=== PATIENT | male | born 1970 | race Caucasian/White ===

== ENCOUNTER 2018-04-06 12:15 | Inpatient (IN) | payer BC ==
[2018-04-06] MEDS ORDERED: ASPIRIN 81 MG PO STA (12:25)
[2018-04-06] MEDS ORDERED: SODIUM CHLORIDE 0.9% 500 ML IV STA (12:25)
[2018-04-06] MEDS ORDERED: NITROGLYCERIN OINT 1 INCH/GM PACKET TOPICAL STA (12:25)
--- NOTE | 2018-04-06 12:29 | ED ---
General Adult HPI - General Chief complaint: Chest Pain Stated complaint: chest pain Time Seen by Provider: 04/06/18 12:15 Source: patient, RN notes reviewed Mode of arrival: wheelchair Limitations: no limitations - History of Present Illness Initial comments: This is a 48-year-old male who has a past medical history significant for smoking and has a strong family history of heart disease. Patient comes in today because he's been having intermittent left-sided chest pain that takes his breath away and has been radiating down his left arm. Patient states he's been having symptoms for a few weeks but today he has had them more and more and it was much more significant and he was short of breath again and was radiating into his left arm. Patient states he also is a little bit sweaty. Patient denies any nausea with the symptoms. Patient denies any abdominal pain patient denies nausea vomiting diarrhea. Patient denies any headache patient denies numbness weakness. Patient denies any lightheadedness or dizziness. Patient denies any recent fever chills or cough. Patient denies any calf pain or leg swelling. - Related Data Home Medications Medication Instructions Recorded Confirmed No Known Home Medications 04/06/18 04/06/18 Allergies Allergy/AdvReac Type Severity Reaction Status Date / Time Penicillins Allergy Anaphylaxis Verified 04/06/18 13:03 Review of Systems ROS Statement: Those systems with pertinent positive or pertinent negative responses have been documented in the HPI. ROS Other: All systems not noted in ROS Statement are negative. Past Medical History Past Medical History: No Reported History History of Any Multi-Drug Resistant Organisms: None Reported Past Surgical History: Orthopedic Surgery Additional Past Surgical History / Comment(s): knee surgery Past Psychological History: No Psychological Hx Reported Smoking Status: Current every day smoker Past Alcohol Use History: None Reported Past Drug Use History: None Reported General Exam - General Exam Comments Initial Comments: GENERAL: Patient is well-developed and well-nourished. Patient is nontoxic and well- hydrated and is in mild distress. ENT: Neck is soft and supple. No significant lymphadenopathy is noted. Oropharynx is clear. Moist mucous membranes. Neck has full range of motion without eliciting any pain. EYES: The sclera were anicteric and conjunctiva were pink and moist. Extraocular movements were intact and pupils were equal round and reactive to light. Eyelids were unremarkable. PULMONARY: Unlabored respirations. Good breath sounds bilaterally. No audible rales rhonchi or wheezing was noted. CARDIOVASCULAR: There is a regular rate and rhythm without any murmurs gallops or rubs. ABDOMEN: Soft and nontender with normal bowel sounds. SKIN: Skin is clear with no lesions or rashes and otherwise unremarkable. NEUROLOGIC: Patient is alert and oriented x3. Cranial nerves II through XII are grossly intact. Motor and sensory are also intact. Normal speech, volume and content. Symmetrical smile. MUSCULOSKELETAL: Normal extremities with adequate strength and full range of motion. LYMPHATICS: No significant lymphadenopathy is noted PSYCHIATRIC: Normal psychiatric evaluation. Limitations: no limitations Course Vital Signs 04/06/18 04/06/18 12:19 13:40 Temperature 98.4 F Pulse Rate 62 56 L Respiratory 16 18 Rate Blood Pressure 143/82 124/76 O2 Sat by Pulse 98 98 Oximetry Medical Decision Making - Medical Decision Making EKG shows normal sinus rhythm at 64 bpm [place] interval is 134 QRS 94 Q-T intervals 392 QTC is 44. Patient's EKG shows no ST segment elevation or depression or T wave abnormalities are noted. Chest x-ray shows no acute abnormality. Patient had Nitropaste placed he is no longer had any chest pain. Because of the patient's changing chest pain and increasing frequency I put the patient on heparin labeled him as an unstable angina admitted the patient. I spoke with Dr. Mccarthy she agreed to admit the patient admitted the patient I continued heparin nitro and aspirin on the floor. I consult cardiology. - Lab Data Result diagrams: 04/06/18 12:43 04/06/18 12:43 Lab Results 04/06/18 04/06/18 04/06/18 Range/Units 12:43 12:43 12:43 WBC 7.9 (3.8-10.6) k/uL RBC 4.62 (4.30-5.90) m/uL Hgb 14.1 (13.0-17.5) gm/dL Hct 42.7 (39.0-53.0) % MCV 92.5 (80.0-100.0) fL MCH 30.5 (25.0-35.0) pg MCHC 33.0 (31.0-37.0) g/dL RDW 12.9 (11.5-15.5) % Plt Count 359 (150-450) k/uL Neutrophils % 60 % Lymphocytes % 30 % Monocytes % 6 % Eosinophils % 3 % Basophils % 0 % Neutrophils # 4.8 (1.3-7.7) k/uL Lymphocytes # 2.4 (1.0-4.8) k/uL Monocytes # 0.5 (0-1.0) k/uL Eosinophils # 0.2 (0-0.7) k/uL Basophils # 0.0 (0-0.2) k/uL PT (9.0-12.0) sec INR (<1.2) APTT (22.0-30.0) sec Sodium 141 (137-145) mmol/L Potassium 4.3 (3.5-5.1) mmol/L Chloride 108 H (98-107) mmol/L Carbon Dioxide 26 (22-30) mmol/L Anion Gap 7 mmol/L BUN 14 (9-20) mg/dL Creatinine 0.94 (0.66-1.25) mg/dL Est GFR (CKD-EPI)AfAm >90 (>60 ml/min/1.73 sqM) Est GFR (CKD-EPI)NonAf >90 (>60 ml/min/1.73 sqM) Glucose 91 (74-99) mg/dL Calcium 9.6 (8.4-10.2) mg/dL Magnesium 1.9 (1.6-2.3) mg/dL Total Bilirubin 1.3 (0.2-1.3) mg/dL AST 45 (17-59) U/L ALT 27 (21-72) U/L Alkaline Phosphatase 48 (38-126) U/L Total Creatine Kinase 153 (55-170) U/L CK-MB (CK-2) 0.8 (0.0-2.4) ng/mL CK-MB (CK-2) Rel Index 0.5 Troponin I <0.012 (0.000-0.034) ng/mL Total Protein 6.8 (6.3-8.2) g/dL Albumin 4.2 (3.5-5.0) g/dL 04/06/18 Range/Units 12:43 WBC (3.8-10.6) k/uL RBC (4.30-5.90) m/uL Hgb (13.0-17.5) gm/dL Hct (39.0-53.0) % MCV (80.0-100.0) fL MCH (25.0-35.0) pg MCHC (31.0-37.0) g/dL RDW (11.5-15.5) % Plt Count (150-450) k/uL Neutrophils % % Lymphocytes % % Monocytes % % Eosinophils % % Basophils % % Neutrophils # (1.3-7.7) k/uL Lymphocytes # (1.0-4.8) k/uL Monocytes # (0-1.0) k/uL Eosinophils # (0-0.7) k/uL Basophils # (0-0.2) k/uL PT 10.5 (9.0-12.0) sec INR 1.1 (<1.2) APTT 26.7 (22.0-30.0) sec Sodium (137-145) mmol/L Potassium (3.5-5.1) mmol/L Chloride (98-107) mmol/L Carbon Dioxide (22-30) mmol/L Anion Gap mmol/L BUN (9-20) mg/dL Creatinine (0.66-1.25) mg/dL Est GFR (CKD-EPI)AfAm (>60 ml/min/1.73 sqM) Est GFR (CKD-EPI)NonAf (>60 ml/min/1.73 sqM) Glucose (74-99) mg/dL Calcium (8.4-10.2) mg/dL Magnesium (1.6-2.3) mg/dL Total Bilirubin (0.2-1.3) mg/dL AST (17-59) U/L ALT (21-72) U/L Alkaline Phosphatase (38-126) U/L Total Creatine Kinase (55-170) U/L CK-MB (CK-2) (0.0-2.4) ng/mL CK-MB (CK-2) Rel Index Troponin I (0.000-0.034) ng/mL Total Protein (6.3-8.2) g/dL Albumin (3.5-5.0) g/dL Critical Care Time Critical Care Time: Yes Total Critical Care Time: 35 Disposition Clinical Impression: Unstable angina pectoris Disposition: ADMITTED IP TO THIS [facility] Referrals: None,Stated [Primary Care Provider] - 1-2 days Time of Disposition: 13:44
[2018-04-06 12:56] LABS: Basophils % (A) 0 %; Eosinophils # (A) 0.2 k/uL (0-0.7); Eosinophils % (A) 3 %; HCT 42.7 % (39.0-53.0); HGB 14.1 gm/dL (13.0-17.5); Lymphocytes # (A) 2.4 k/uL (1.0-4.8); Lymphocytes % (A) 30 %; MCH 30.5 pg (25.0-35.0); MCV 92.5 fL (80.0-100.0); Mean Platelet Volume 6.9; Monocytes # (A) 0.5 k/uL (0-1.0); Monocytes % (A) 6 %; Neutrophils # (A) 4.8 k/uL (1.3-7.7); Neutrophils % (A) 60 %; Platelet Count 359 k/uL (150-450); RBC 4.62 m/uL (4.30-5.90); RDW 12.9 % (11.5-15.5); WBC 7.9 k/uL (3.8-10.6)
[2018-04-06 13:04] LABS: ALT 27 U/L (21-72); AST 45 U/L (17-59); Albumin 4.2 g/dL (3.5-5.0); Alkaline Phosphatase 48 U/L (38-126); Anion Gap 7 mmol/L; Blood Urea Nitrogen 14 mg/dL (9-20); Calcium 9.6 mg/dL (8.4-10.2); Carbon Dioxide 26 mmol/L (22-30); Chloride 108 mmol/L (98-107); Glucose 91 mg/dL (74-99); INR 1.1 (<1.2); Magnesium 1.9 mg/dL (1.6-2.3); Partial Thromboplastin Time 26.7 sec (22.0-30.0); Potassium 4.3 mmol/L (3.5-5.1); Prothrombin Time 10.5 sec (9.0-12.0); Sodium 141 mmol/L (137-145); Total Bilirubin 1.3 mg/dL (0.2-1.3); Total Protein 6.8 g/dL (6.3-8.2)
--- NOTE | 2018-04-06 13:08 | XR ---
EXAMINATION TYPE: XR chest 2V DATE OF EXAM: 04/06/2018 HISTORY: Chest Pain. REFERENCE: NONE. FINDINGS: The lungs are clear. Pleural spaces are clear. The heart is not enlarged. IMPRESSION: NORMAL CHEST.
[2018-04-06 13:15] LABS: Creatine Kinase 153 U/L (55-170)
[2018-04-06 13:28] LABS: Creatine Kinase MB 0.8 ng/mL (0.0-2.4); Troponin I <0.012 ng/mL (0.000-0.034)
[2018-04-06] MEDS ORDERED: HEPARIN SODIUM,PORCINE 5,000 UNIT/ML 1 ML VIAL IV ONE (13:28)
[2018-04-06] MEDS ORDERED: HEPARIN SOD,PORK IN 0.45% NACL 25,000 UNIT in 0.45% NACL 1 500ML.BAG IV SCH (13:30)
[2018-04-06] MEDS ORDERED: NITROGLYCERIN SL TABS 0.4 MG TAB SUBLINGUAL PRN (13:46)
[2018-04-06] MEDS ORDERED: ONDANSETRON 4 MG/2 ML VIAL IVP PRN (15:58)
[2018-04-06] MEDS ORDERED: HYDROcodone/APAP 5-325MG 1 EACH TAB PO PRN (15:58)
--- NOTE | 2018-04-06 15:58 | P.HPIM ---
History of Present Illness H&P Date: 04/06/18 Chief Complaint: chest pain Patient is a 48-year-old male with no significant past medical history other than tobacco abuse who presented initially to the walk-in clinic with complaints of chest pain. He was sent over to the ER for further evaluation. In the ER he underwent an extensive evaluation. His initial vital signs were within normal limits. Initial laboratory analysis was unremarkable. Troponin was negative. EKG did not show any ST-T wave changes. Chest x-ray was negative. He received a nitro patch with improvement in his chest pain. He was admitted to observation for further monitoring. He was also started on a heparin drip. Patient seen and examined at bedside in the observation unit. He states that for the last several weeks he has been walking with his granddaughter. During these walks he's developed chest pain and shortness of breath along with diaphoresis. It was typically lasting about 15-20 minutes and then he would cut recover after relaxing. Last night the chest pain awoke him at 4 AM and was more significant than it had been in the past and lasted longer. He was finally able to fall back asleep. He woke at 10 AM this morning in severe left- sided chest pain with shortness of breath. At that point in time his left arm was numb, he was diaphoretic, he felt lightheaded, and he was having palpitations. He was not nauseous. This episode lasted until he received nitro in the emergency department. He has no PCP, he has never had a stress test, and he has never had a reason to see a scanning manager. He does not take any medications on a daily basis. He denies any recent cough, cold, fever, flu, nausea, vomiting, or constipation. He frequently has multiple bowel movements daily but this is unchanged over the last several years. He does smoke approximately one pack daily. His dad had open heart surgery with a triple or quadruple bypass at age 52. Currently his chest pain is much better. 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 Review of Systems Pertinent positives and negatives as discussed in HPI, a complete review of systems was performed and all other systems are negative. Past Medical History Past Medical History: No Reported History History of Any Multi-Drug Resistant Organisms: None Reported Past Surgical History: Orthopedic Surgery Additional Past Surgical History / Comment(s): left knee surgery, cyst removed on right wrist Past Psychological History: No Psychological Hx Reported Smoking Status: Current every day smoker Past Alcohol Use History: None Reported Past Drug Use History: None Reported Additional History: Smokes one pack per day, no history of cocaine or methamphetamines. Works as a [employer] company driver. Lives with his . No assistive devices. - Past Family History Father Family Medical History: Diabetes Mellitus Additional Family Medical History / Comment(s): CABG at age of 52 Mother Additional Family Medical History / Comment(s): from Cerebral aneurysm Brother(s) Family Medical History: Diabetes Mellitus Medications and Allergies Home Medications Medication Instructions Recorded Confirmed Type No Known Home Medications 04/06/18 04/06/18 History Allergies Allergy/AdvReac Type Severity Reaction Status Date / Time Penicillins Allergy Anaphylaxis Verified 04/06/18 13:03 Physical Exam Osteopathic Statement: *. No significant issues noted on an osteopathic structural exam other than those noted in the History and Physical/Consult. Vitals: Vital Signs Temp Pulse Pulse Resp BP BP Pulse Ox 04/06/18 15:27 66 18 04/06/18 14:13 98.2 F 66 18 138/76 98 04/06/18 13:58 98.0 F 65 18 124/76 99 04/06/18 13:40 56 L 18 124/76 98 04/06/18 12:19 98.4 F 62 16 143/82 98 Intake and Output 04/06/18 04/06/18 04/06/18 06:59 14:59 22:59 Other: Voiding Method Toilet Weight 81.5 kg General: non toxic, no distress, appears at stated age, normal weight Derm: no unusual rashes/lesions no unusual ecchymoses, warm, dry Head: atraumatic, normocephalic, symmetric Eyes: EOMI, no lid lag, anicteric sclera, pupils equal round reactive to light ENT: Nose and ears atraumatic, no thrush, no pharyngeal erythema Neck: No thyromegaly, no cervical lymphadenopathy, trachea midline, supple Mouth: no lip lesion, mucus membranes moist Cardiovascular: S1S2 reg, no murmur, positive posterior tibial pulse bilateral, no edema, capillary refill less than 2 seconds, tenderness to palpation over left chest wall. Lungs: CTA bilateral, no rhonchi, no rales , no accessory muscle use Abdominal: soft, nontender to palpation, no guarding, no appreciable organomegaly, normal bowel sounds Ext: no gross muscle atrophy, muscle strength 5 out of 5 in all 4 extremities grossly, no contractures, chest pain with abduction of the arm to 90 with elbow flexed and internal/external rotation of the arm, chest pain and tingling radiating down arm with abduction Neuro: CN II-XI grossly intact, light touch intact all 4 extremities, finger to nose within normal limits, Psych: Alert, oriented, appropriate affect Results CBC & Chem 7: 04/06/18 12:43 04/06/18 12:43 Labs: Abnormal Lab Results - Last 24 Hours (Table) 04/06/18 Range/Units 12:43 Chloride 108 H (98-107) mmol/L Comments: EKG is reviewed by myself reveals normal sinus rhythm at a rate of 64, normal axis, normal intervals with a VT of 134, QRS 94, and QT of 204. No significant ST-T wave changes. Chest x-ray: report reviewed Thrombosis Risk Factor Assmnt - DVT/VTE Prophylaxis DVT/VTE Prophylaxis: Pharmacologic Prophylaxis ordered - Choose All That Apply Any of the Below Risk Factors Present?: Yes Each Factor Represents 1 point: Age 41-60 years, Obesity (BMI >25) Other Risk Factors: No Thrombosis Risk Factor Assessment Total Risk Factor Score: 2 Thrombosis Risk Factor Assessment Level: Low Risk Assessment and Plan Assessment: Unstable angina, currently chest pain-free -Continue with Nitropaste and heparin drip -Serial troponins -Telemetry -Cardiology consult -Nothing by mouth after midnight with anticipation of cardiac cath or stress test in a.m. -Echo -Lipid profile in a.m. -Aspirin and statin Left shoulder dysfunction -Concern for rotator cuff injury -We will follow with nurse practitioner he saw previously on discharge for further evaluation Tobacco abuse -Cessation -We will avoid nicotine replacement at this point in time with unstable angina Family hx of diabetes - check A1C The patient is placed in observation with an anticipated less than 2 per night stay for evaluation of chest pain/unstable angina. Surrogate decision-maker: CODE STATUS: Full DVT prophylaxis: On heparin drip Discussed with: Patient, family, nursing, ED physician Anticipated discharge date: 24-[address]: Home A total of 55 minutes was spent on the care of this complex patient more than 50 % of the time was spent in counseling and care coordination.
[2018-04-06] MEDS: NITROGLYCERIN OINT 1 INCH/GM PACKET TOPICAL SCH (18:05)
[2018-04-06 19:49] LABS: Creatine Kinase 122 U/L (55-170)
[2018-04-06 20:02] LABS: Creatine Kinase MB 0.6 ng/mL (0.0-2.4); Troponin I <0.012 ng/mL (0.000-0.034)
[2018-04-06] MEDS: ATORVASTATIN 40 MG TAB PO SCH (20:36)
[2018-04-06 23:52] LABS: Cholesterol 202 mg/dL (<200); HDL Cholesterol 23 mg/dL (40-60); LDL Cholesterol,Calculated 156 mg/dL (0-99); Triglycerides 114 mg/dL (<150)
[2018-04-07] MEDS: NITROGLYCERIN OINT 1 INCH/GM PACKET TOPICAL SCH ×4 (00:07→20:18)
[2018-04-07 01:37] LABS: Creatine Kinase 103 U/L (55-170)
[2018-04-07 01:52] LABS: Creatine Kinase MB 0.6 ng/mL (0.0-2.4); Troponin I <0.012 ng/mL (0.000-0.034)
--- NOTE | 2018-04-07 07:38 | P.CRDCN ---
History of Present Illness Consult date: 04/07/18 Chief complaint: Chest discomfort History of present illness: This is a pleasant 48-year-old gentleman with history of smoking presented to the hospital complaining of chest discomfort. He was in his usual state of health about 4 weeks ago when he started experiencing intermittent episodes of chest discomfort, as a sharp kind of discomfort, in the mid of the chest, with some radiation to the left arm described as numbness in the left arm. It was associated with sweating. No shortness of breath. No dizziness or lightheadedness. No nausea or vomiting. No syncope. The patient states clearly that the discomfort is mostly during the night when he is sleeping and at one time about 4 weeks ago happened when he was walking with his granddaughter. The patient does not have any history of coronary artery disease but his cholesterol panel showed elevated LDL in the hospital. He was started on Lipitor at 40 mg by mouth daily. No major cardiac vascular surgery. The patient does smoke about one pack every day. No family history of premature CAD. The EKG showed sinus rhythm without any significant ST or T-wave abnormalities. The cardiac enzymes were checked and came in to be unremarkable. I am going to obtain an exercise treadmill stress test and follow-up with the patient. Also I will obtain an echocardiogram was Doppler. Past Medical History Past Medical History: No Reported History History of Any Multi-Drug Resistant Organisms: None Reported Past Surgical History: Orthopedic Surgery Additional Past Surgical History / Comment(s): left knee surgery, cyst removed on right wrist Past Psychological History: No Psychological Hx Reported Smoking Status: Current every day smoker Past Alcohol Use History: None Reported Past Drug Use History: None Reported - Past Family History Father Family Medical History: Diabetes Mellitus Additional Family Medical History / Comment(s): CABG at age of 52 Mother Additional Family Medical History / Comment(s): from Cerebral aneurysm Brother(s) Family Medical History: Diabetes Mellitus Medications and Allergies Home Medications Medication Instructions Recorded Confirmed Type No Known Home Medications 04/06/18 04/06/18 History Allergies Allergy/AdvReac Type Severity Reaction Status Date / Time Penicillins Allergy Anaphylaxis Verified 04/06/18 13:03 Physical Exam Vitals: Vital Signs Temp Pulse Pulse Resp BP BP Pulse Ox 04/07/18 04:10 98.1 F 66 16 101/63 98 04/07/18 04:00 16 04/07/18 00:00 18 04/06/18 23:28 98.3 F 59 L 18 120/73 96 04/06/18 20:00 18 04/06/18 18:58 98.3 F 55 L 18 117/70 96 04/06/18 16:00 98.4 F 63 16 119/72 98 04/06/18 15:27 66 18 04/06/18 14:13 98.2 F 66 18 138/76 98 04/06/18 13:58 98.0 F 65 18 124/76 99 04/06/18 13:40 56 L 18 124/76 98 04/06/18 12:19 98.4 F 62 16 143/82 98 Intake and Output 04/06/18 04/07/18 04/07/18 22:59 06:59 14:59 Intake Total 159.659 156.987 Balance 159.659 156.987 Intake: Intake, IV Titration 159.659 156.987 Amount Heparin Sod,Pork in 0.45% 159.659 156.987 NaCl 25,000 unit In 0.45 % NaCl 1 500ml.bag @ 12 UNITS/KG/HR 19.59 mls/hr IV .Q24H [facility] Rx#: [id number] Other: Voiding Method Toilet Toilet # Voids 2 2 - Constitutional General appearance: no acute distress - Respiratory Respiratory: bilateral: CTA - Cardiovascular Rhythm: regular Heart sounds: normal: S1, S2 Abnormal Heart Sounds: systolic murmur Results 04/06/18 12:43 04/06/18 12:43 Cardiac Enzymes 04/06/18 04/06/18 04/06/18 Range/Units 12:43 12:43 19:12 AST 45 (17-59) U/L CK-MB (CK-2) 0.8 0.6 (0.0-2.4) ng/mL Troponin I <0.012 <0.012 (0.000-0.034) ng/mL 04/07/18 Range/Units 00:43 AST (17-59) U/L CK-MB (CK-2) 0.6 (0.0-2.4) ng/mL Troponin I <0.012 (0.000-0.034) ng/mL Coagulation 04/06/18 04/06/1818 Range/Units 12:43 19:12 00:40 PT 10.5 (9.0-12.0) sec APTT 26.7 45.1 H 40.1 H (22.0-30.0) sec Lipids 04/06/18 Range/Units 12:43 Triglycerides 114 (<150) mg/dL Cholesterol 202 H (<200) mg/dL HDL Cholesterol 23 L (40-60) mg/dL CBC 04/06/18 Range/Units 12:43 WBC 7.9 (3.8-10.6) k/uL RBC 4.62 (4.30-5.90) m/uL Hgb 14.1 (13.0-17.5) gm/dL Hct 42.7 (39.0-53.0) % Plt Count 359 (150-450) k/uL Comprehensive Metabolic Panel 04/06/18 Range/Units 12:43 Sodium 141 (137-145) mmol/L Potassium 4.3 (3.5-5.1) mmol/L Chloride 108 H (98-107) mmol/L Carbon Dioxide 26 (22-30) mmol/L BUN 14 (9-20) mg/dL Creatinine 0.94 (0.66-1.25) mg/dL Glucose 91 (74-99) mg/dL Calcium 9.6 (8.4-10.2) mg/dL AST 45 (17-59) U/L ALT 27 (21-72) U/L Alkaline Phosphatase 48 (38-126) U/L Total Protein 6.8 (6.3-8.2) g/dL Albumin 4.2 (3.5-5.0) g/dL Current Medications Generic Name Dose Route Start Last Admin Trade Name Freq PRN Reason Stop Dose Admin Hydrocodone Bitart/Acetaminophen 1 each 04/06/18 15:58 [place] 5-325 PO Q6HR PRN Pain Aspirin 325 mg 04/07/18 09:00 Aspirin PO DAILY DASHAWN Atorvastatin Calcium 40 mg 04/06/18 21:00 04/06/18 20:36 Lipitor PO 40 mg HS DASHAWN Administration Heparin Sodium/Sodium Chloride 500 mls @ 19.59 mls/hr 04/06/18 13:30 04:44 25,000 unit/ Sodium Chloride IV 16.16 units/kg/hr .Q24H DASHAWN 26.4 mls/hr Titration Protocol 12 UNITS/KG/HR Nitroglycerin 1 inch 04/06/18 18:00 04/07/18 05:19 Nitro-Bid Oint TOPICAL Not Given Q6HR [facility] Nitroglycerin 0.4 mg 04/06/18 13:46 Nitrostat SUBLINGUAL Q5M PRN Chest Pain Ondansetron HCl 4 mg 04/06/18 15:58 Zofran IVP Q6H PRN Nausea Intake and Output 04/06/18 04/07/18 04/07/18 22:59 06:59 14:59 Intake Total 159.659 156.987 Balance 159.659 156.987 Intake: Intake, IV Titration 159.659 156.987 Amount Heparin Sod,Pork in 0.45% 159.659 156.987 NaCl 25,000 unit In 0.45 % NaCl 1 500ml.bag @ 12 UNITS/KG/HR 19.59 mls/hr IV .Q24H [facility] Rx#: [id number] Other: Voiding Method Toilet Toilet # Voids 2 2 04/06/18 12:43 04/06/18 12:43 Assessment and Plan Assessment: Assessment #1 atypical chest discomfort #2 dyslipidemia #3 significant history of smoking Plan #1 the patient was ruled out for acute coronary event #2 I will obtain a TXT #3 obtain an echocardiogram was Doppler #4 follow-up with the patient. Thank you for allowing us participate his care
--- NOTE | 2018-04-07 10:39 | ECHOF ---
Referral Reason:cp MEASUREMENTS -------- HEIGHT: 172.7 cm WEIGHT: 81.2 kg BP: RVIDd: 2.3 cm (< 3.3) IVSd: 0.9 cm (0.6 - 1.1) LVIDd: 4.5 cm (3.9 - 5.3) LVPWd: 1.1 cm (0.6 - 1.1) IVSs: 1.3 cm LVIDs: 3.9 cm LVPWs: 1.3 cm LA Diam: 3.0 cm (2.7 - 3.8) LAESV Index (A-L): 25.13 ml/m Ao Diam: 3.2 cm (2.0 - 3.7) AV Cusp: 2.1 cm (1.5 - 2.6) LA Diam: 3.7 cm (2.7 - 3.8) MV EXCURSION: 18.525 mm (> 18.000) MV EF SLOPE: 91 mm/s (70 - 150) EPSS: 0.5 cm MV E Max: 0.83 m/s MV DecT: 184 ms MV A Max: 0.66 m/s MV E/A Ratio: 1.25 RAP: 5.00 mmHg RVSP: 26.47 mmHg FINDINGS -------- Sinus rhythm. This was a technically adequate study. LV size, wall thickness and systolic function are normal, with an EF greater than 55%. The left ang tricular size is normal. The right ventricle is normal in size. The left atrial size is normal. Normal LA size by volume 22+/-6 ml/m2. The right atrial size is normal. There is mild aortic valve sclerosis. There is no evidence of aortic regurgitation. Mild mitral annular calcification present. Mild mitral regurgitation is present. Mild tricuspid regurgitation present. There is no evidence of pulmonary hypertension. The right v entricular systolic pressure, as measured by Doppler, is 26.47mmHg. There is no pulmonic regurgitation present. The aortic root size is normal. There is no pericardial effusion. CONCLUSIONS -------- 1. LV size, wall thickness and systolic function are normal, with an EF greater than 55%. 2. The left ventricular size is normal. 3. The right ventricle is normal in size. 4. The left atrial size is normal. 5. The right atrial size is normal. 6. There is mild aortic valve sclerosis. 7. Mild mitral annular calcification present. 8. Mild mitral regurgitation is present. 9. Mild tricuspid regurgitation present. 10. There is no evidence of pulmonary hypertension. 11. The right ventricular systolic pressure, as measured by Doppler, is 26.47mmHg. 12. There is no pulmonic regurgitation present. 13. The aortic root size is normal. 14. There is no pericardial effusion. REFINING EQUIPMENT OPERATOR: Radha Mabry RDCS
[2018-04-07] MEDS: ASPIRIN 325 MG TAB PO SCH (11:29)
[2018-04-07] MEDS ORDERED: NITROGLYCERIN SL TABS 0.4 MG TAB SUBLINGUAL PRN (12:38)
[2018-04-07] MEDS ORDERED: ASPIRIN 325 MG TAB PO STA (12:38)
[2018-04-07] MEDS ORDERED: ATORVASTATIN 80 MG TAB PO STA (12:38)
[2018-04-07] MEDS ORDERED: ALPRAZolam 0.5 MG TAB PO PRN (12:38)
[2018-04-07] MEDS ORDERED: SODIUM CHLORIDE 0.9% 1,000 ML in EMPTY BAG 1 BAG IV ONE (12:38)
[2018-04-07] MEDS ORDERED: ALPRAZolam 0.25 MG TAB PO PRN (12:38)
--- NOTE | 2018-04-07 13:15 | EST ---
EXERCISE STRESS DATE OF SERVICE: 04/07/2018 AGE: 48 SEX: Male HT: 68" WT: 179 PROTOCOL: Rashel TXT STAGE: III DURATION OF EXERCISE: 7 minutes HEART RATE REST: 67 BLOOD PRESSURE REST: 115/77 MAXIMUM HEART RATE ACHIEVED: 124 MAXIMUM BLOOD PRESSURE: 174/106 85% MPHR: 147 100% MPHR: 173 METS: 9.3 INDICATION: Chest discomfort. CLINICAL INFORMATION: STRESS DATA: Pretesting physical examination showed a heart rate of 67, Pressure is 115/77 mmHg. Baseline EKG showed sinus mechanism. The patient exercised on the treadmill according to Rashel protocol for a total of a total of 7 minutes and achieved 9.3 METs. Max heart rate was 124, which is about 72% of maximum predicted heart rate. Maximum pressure was 174/106 mmHg. Clinically the patient developed discomfort at the heart rate, which was resolved on recovery and with nitroglycerin sublingual. No EKG changes concerning for ischemia. CONCLUSION: 1. Good exercise tolerance. 2. Severe chest discomfort in response to exercise. 3. No EKG changes in response to exercise. 4. Overall abnormal stress test for the patient. I did recommend proceeding with a nuclear stress test or heart catheterization and the patient would like to proceed with a heart catheterization. MMODL / IJN: [id number] /
[2018-04-07 14:12] LABS: Hemoglobin A1C 5.6 % (4.0-6.0)
[2018-04-07] MEDS: ATORVASTATIN 40 MG TAB PO SCH (20:19)
[2018-04-08] MEDS: NITROGLYCERIN OINT 1 INCH/GM PACKET TOPICAL SCH ×5 (00:58→22:40)
[2018-04-08] MEDS ORDERED: IV FLUID CONTINUATION 850 ML IV ONE (08:17)
[2018-04-08] MEDS ORDERED: MIDAZOLAM 2 MG/2 ML VIAL IV ONE ×2 (08:40→09:12)
[2018-04-08] MEDS ORDERED: LIDOCAINE 1% INJ 10MG/ML (20 ML MDV) SQ ONE (08:43)
[2018-04-08] MEDS ORDERED: VERAPAMIL SYRINGE (5 MG/10 ML) INTRAARTER ONE ×2 (08:44→09:30)
[2018-04-08] MEDS ORDERED: HEPARIN SODIUM 1,000 UN/ML (10ML VL) IV ONE ×2 (08:46→09:12)
[2018-04-08] MEDS: fentaNYL (PF) 50 MCG/ML 2 ML AMP IV ONE ×2 (08:50→09:12)
[2018-04-08] MEDS ORDERED: ADENOSINE 90 MG in SODIUM CHLORIDE 0.9% 60 ML IVP ONE (09:20)
[2018-04-08] MEDS ORDERED: IOPAMIDOL-370 100ML BTL INJ ONE (09:28)
[2018-04-08] MEDS ORDERED: IOPAMIDOL-370 125ML BTL INJ ONE (09:28)
[2018-04-08] MEDS ORDERED: SODIUM CHLORIDE 0.9% 1,000 ML IV SCH (09:45)
[2018-04-08] MEDS ORDERED: RX INFO: IV CONTRAST WAS GIVEN 1 EACH MISC MISCELLANE PRN (09:45)
--- NOTE | 2018-04-08 10:22 | CC ---
CARDIAC CATHETERIZATION REPORT DATE OF SERVICE: 04/08/2018 PERFORMING PHYSICIAN: Chuy Sanchez MD, Dairy Farm Worker PROCEDURE PERFORMED: 1. Selective right and left coronary angiogram. 2. Left heart catheterization. 3. Fractional flow reserve FFR of the LAD. INDICATION: This is a pleasant 48-year-old gentleman with history of smoking, who presented to the hospital complaining of chest discomfort and was ruled out for acute coronary event. He underwent an exercise treadmill stress test and that during exercise, he developed chest discomfort concerning for angina. Because of that, heart catheterization was recommended. APPROACH: Right radial artery. COMPLICATION: None. LEVEL OF SEDATION: Moderate sedation for 48 minutes. PROCEDURE DESCRIPTION: After obtaining an informed consent, the patient was brought to the cardiac nitriles lab technician. The right radial artery was cannulated using micropuncture technique, the micropuncture wire passed easily, then I placed a 6-Kyrgyz sheath in the right radial artery. After that, I gave the patient 2 mg of verapamil IA and 8000 units of heparin IV. I did after that selective right and left coronary angiogram using JR4 and JL3.5 catheters. Left heart catheterization was performed using the JR4, which flipped into the LV, then I did pullback across aortic valve. After that, I performed fractional flow reserve FFR of the LAD. Please see a separate paragraph for that. SELECTIVE CORONARY ANGIOGRAM: 1. The right coronary artery is a [id number] caliber vessel and it is a dominant vessel. The proximal RCA appeared to be angiographically normal. The mid RCA has intermediate lesion, appeared to be in the range of 50%. The RCA distally appeared to be angiographically normal and bifurcates into PDA and PLV branches. 2. The left main is angiographically normal. It bifurcates into left circumflex, ramus intermedius, and left anterior descending artery. 3. The left circumflex is a large caliber vessel. It is a nondominant vessel. The left circumflex system is angiographically normal. 4. The ramus intermedius is a moderate caliber vessel and seems to be angiographically normal. 5. The LAD, the ostial LAD appeared to have a lesion, seems to be in the range of 60% to 70%. I did an FFR on the LAD and that came into be ischemic at 0.78. The mid LAD and distal LAD appeared to be angiographically normal. The LAD in the midportion gives rise into 2 diagonal branches. they appear to be angiographically normal. FFR FRACTIONAL FLOW RESERVE OF THE LAD: After zeroing the Doppler wire and equalizing between the Doppler wire and the guiding catheter, we did FFR per IV infusion. FFR came in to be 1.78, which is ischemic. CONCLUSION: 1. Intermediate disease involving the mid right coronary artery. 2. Normal left circumflex coronary artery. 3. Normal ramus intermedius coronary artery. 4. Severe disease involving the ostial left anterior descending artery. 5. After zeroing the Doppler wire and equalizing between the Doppler wire and the guiding catheter, we did FFR per IV infusion. FFR came in to be 1.78, which is ischemic. POSTPROCEDURE MANAGEMENT: Giving the location of the lesion, which is by the ostial LAD with a very small landing zone for stent, I did recommend proceeding with a single-vessel coronary artery bypass grafting with LYN to LAD. I am going to consult surgeon to see the patient. MMODL / IJN: [id number] /
[2018-04-08] MEDS: ASPIRIN 325 MG TAB PO SCH (11:28)
[2018-04-08] MEDS: METOPROLOL TARTRATE 12.5 MG TAB PO SCH ×2 (11:57→20:35)
[2018-04-08 11:58] LABS: HGB 13.2 gm/dL (13.0-17.5); MCH 30.5 pg (25.0-35.0); MCV 92.5 fL (80.0-100.0); Mean Platelet Volume 6.7; Platelet Count 322 k/uL (150-450); RBC 4.33 m/uL (4.30-5.90); RDW 12.8 % (11.5-15.5)
[2018-04-08 12:06] LABS: Anion Gap 7 mmol/L; Blood Urea Nitrogen 11 mg/dL (9-20); Calcium 9.1 mg/dL (8.4-10.2); Carbon Dioxide 26 mmol/L (22-30); Chloride 107 mmol/L (98-107); Glucose 92 mg/dL (74-99); Magnesium 1.9 mg/dL (1.6-2.3); Potassium 4.1 mmol/L (3.5-5.1); Sodium 140 mmol/L (137-145)
--- NOTE | 2018-04-08 13:00 | P.GSCN ---
History of Present Illness Consult date: 04/08/18 Reason for Consult: Coronary artery disease, surgical recommendations. Requesting physician: Chuy Sanchez History of present illness: This a 48-year-old gentleman who does not follow with the primary care physician on a regular basis. He does have a previous medical history of hypertension, hyperlipidemia, current tobacco dependence, occasional marijuana use, and family history of early coronary artery disease with his father having bypass surgery at 52 years old. He is currently on no home medications. He has been having exertional chest pain and shortness of breath for several months. Over the last couple of days he began to have chest pain with radiation to his left arm and shortness of breath with diaphoresis even at rest , including waking him from sleep. He denies any nausea, abdominal pain, vomiting, diarrhea, sick contacts, or recent travel. He presented to [facility] emergency room due to increasing severity of symptoms. Chest x-ray was completed which was negative for any acute process. EKG was performed which did not demonstrate acute ischemia. Troponins were negative. He was admitted for cardiac workup and underwent a stress test. Transthoracic echocardiogram demonstrated normal LV function with an ejection fraction of 55% , mild mitral regurgitation, and mild tricuspid regurgitation. He began to have chest pain during the stress test which was stopped, and he was recommended to have heart catheterization which was completed this morning and which demonstrated proximal LAD stenosis of 70%. FFR was completed with the result of 0.[address] Lindsay from cardiothoracic surgery was consulted for surgical recommendations. Review of Systems Review of systems was completed and was negative except as noted. - Constitutional Reports sweats - Cardiovascular Reports as per HPI, Reports chest pain, Reports decreased exercise tolerance, Reports dyspnea on exertion, Reports shortness of breath Past Medical History Past Medical History: Hyperlipidemia, Hypertension History of Any Multi-Drug Resistant Organisms: None Reported Past Surgical History: Orthopedic Surgery Additional Past Surgical History / Comment(s): left knee surgery, cyst removed on right wrist Past Anesthesia/Blood Transfusion Reactions: No Reported Reaction Past Psychological History: No Psychological Hx Reported Smoking Status: Current every day smoker Past Alcohol Use History: None Reported Past Drug Use History: Marijuana - Past Family History Father Family Medical History: Diabetes Mellitus Additional Family Medical History / Comment(s): CABG at age of 52 Mother Additional Family Medical History / Comment(s): from Cerebral aneurysm Brother(s) Family Medical History: Diabetes Mellitus Medications and Allergies Home Medications Medication Instructions Recorded Confirmed Type No Known Home Medications 04/06/18 04/06/18 History Allergies Allergy/AdvReac Type Severity Reaction Status Date / Time Penicillins Allergy Anaphylaxis Verified 04/06/18 13:03 Surgical - Exam Vital Signs Temp Pulse Resp BP Pulse Ox 98.4 F 62 16 143/82 98 04/06/18 12:19 04/06/18 12:19 04/06/18 12:19 04/06/18 12:19 04/06/18 12:19 - General well developed, well nourished, no distress, no pain - Eyes PERRL, normal ocular movement - ENT no hearing loss, poor longterm - Neck no masses, no bruits, trachea midline - Respiratory Lungs sounds diminished bilaterally. Respirations even, nonlabored. Currently on room air with oxygen saturation 97%. No chest wall deformities. - Cardiovascular S1, S2 present. Regular rate and rhythm, sinus rhythm on telemetry. Palpable peripheral pulses bilaterally. No edema present. No calf pain or tenderness noted. No varicosities noted. - Abdomen Abdomen: soft, non tender, bowel sounds - Genitourinary Deferred - Rectum Deferred - Integumentary no rash, no growths - Neurologic normal coordination, normal sensation - Psychiatric oriented to time, oriented to person, oriented to place, speech is normal, memory intact Results - Labs 04/08/18 11:33 04/08/18 11:33 Diabetes panel 04/06/18 04/08/18 Range/Units 12:43 11:33 Sodium 140 (137-145) mmol/L Potassium 4.1 (3.5-5.1) mmol/L Chloride 107 (98-107) mmol/L Carbon Dioxide 26 (22-30) mmol/L BUN 11 (9-20) mg/dL Creatinine 0.87 (0.66-1.25) mg/dL Glucose 92 (74-99) mg/dL Hemoglobin A1c 5.6 (4.0-6.0) % Calcium 9.1 (8.4-10.2) mg/dL Thyroid panel 04/08/18 Range/Units 11:33 TSH 1.700 (0.465-4.680) mIU/L Calcium panel 04/08/18 Range/Units 11:33 Calcium 9.1 (8.4-10.2) mg/dL Pituitary panel 04/08/18 Range/Units 11:33 Sodium 140 (137-145) mmol/L Potassium 4.1 (3.5-5.1) mmol/L Chloride 107 (98-107) mmol/L Carbon Dioxide 26 (22-30) mmol/L BUN 11 (9-20) mg/dL Creatinine 0.87 (0.66-1.25) mg/dL Glucose 92 (74-99) mg/dL Calcium 9.1 (8.4-10.2) mg/dL TSH 1.700 (0.465-4.680) mIU/L Adrenal panel 04/08/18 Range/Units 11:33 Sodium 140 (137-145) mmol/L Potassium 4.1 (3.5-5.1) mmol/L Chloride 107 (98-107) mmol/L Carbon Dioxide 26 (22-30) mmol/L BUN 11 (9-20) mg/dL Creatinine 0.87 (0.66-1.25) mg/dL Glucose 92 (74-99) mg/dL Calcium 9.1 (8.4-10.2) mg/dL - Imaging Chest x-ray: report reviewed, image reviewed EKG: image reviewed Additional studies: Heart catheterization films reviewed. Assessment and Plan (1) Coronary artery disease Current Visit: Yes Status: Acute Code(s): I25.10 - ATHSCL HEART DISEASE OF [place] CORONARY ARTERY W/O ANG PCTRS SNOMED Code(s): 48226052 (2) Hypertension Current Visit: Yes Status: Chronic Code(s): I10 - ESSENTIAL (PRIMARY) HYPERTENSION SNOMED Code(s): 79175813 (3) Hyperlipidemia Current Visit: Yes Status: Chronic Code(s): E78.5 - HYPERLIPIDEMIA, UNSPECIFIED SNOMED Code(s): 35994969 (4) Tobacco dependence Current Visit: Yes Status: Chronic Code(s): F17.200 - NICOTINE DEPENDENCE, UNSPECIFIED, UNCOMPLICATED SNOMED Code(s): 71266717 (5) Marijuana smoker, episodic Current Visit: Yes Status: Chronic Code(s): F12.90 - CANNABIS USE, UNSPECIFIED, UNCOMPLICATED SNOMED Code(s): 68660342 (6) Family history of early CAD Current Visit: Yes Status: Chronic Code(s): Z82.49 - FAMILY HX OF ISCHEM HEART DIS AND OTH DIS OF THE CIRC SYS SNOMED Code(s): 560350701 (7) Unstable angina pectoris Current Visit: Yes Status: Acute Code(s): I20.0 - UNSTABLE ANGINA SNOMED Code(s): 8972714 Plan: The patient was seen and examined at the bedside with family. Chart/ diagnostics were reviewed including heart catheterization films. The case will be discussed with Dr. Lindsay. The patient would benefit from maximizing medical management with aspirin, statin, beta yanet. Will obtain preoperative testing. Preoperative teaching initiated with patient and family, risks and benefits were reviewed, all questions answered. 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 Patient encouraged to quit smoking. Medical management per primary care service. More recommendations to follow. Thank you Dr. Sanchez for this consult. We look forward to working with you in the care of your patient. Time with Patient: Greater than 30
[2018-04-08 13:06] LABS: Appearance,Urine Clear (Clear); Bilirubin,Urine Negative (Negative); Blood,Urine Negative (Negative); Color,Urine Light Yellow; Glucose,Urine (UA) Negative (Negative); Ketones,Urine Negative (Negative); Leukocyte Esterase,Urine Negative (Negative); Nitrite,Urine Negative (Negative); Protein,Urine Negative (Negative); Specific Gravity,Urine 1.042 (1.001-1.035); Urobilinogen,Urine <2.0 mg/dL (<2.0)
--- NOTE | 2018-04-08 15:59 | US ---
EXAMINATION TYPE: US carotid duplex BILAT DATE OF EXAM: 04/08/2018 COMPARISON: NONE CLINICAL HISTORY: preop open heart. EXAM MEASUREMENTS: RIGHT: Peak Systolic Velocity (PSV) cm/sec ----- Right CCA: 60.7 ----- Right ICA: 69.9 ----- Right ECA: 73.9 ICA/CCA ratio: 1.2 RIGHT: End Diastole cm/sec ----- Right CCA: 12.7 ----- Right ICA: 25.4 ----- Right ECA: 15.4 LEFT: Peak Systolic Velocity (PSV) cm/sec ----- Left CCA: 60.3 ----- Left ICA: 70.2 ----- Left ECA: 45.6 ICA/CCA ratio: 1.2 LEFT: End Diastole cm/sec ----- Left CCA: 18.6 ----- Left ICA: 27.4 ----- Left ECA: 9.3 VERTEBRALS (direction of flow): Right Vertebral: Antegrade Left Vertebral: Antegrade Rhythm: Normal Grayscale images show no significant focal plaque at carotid bulb level bilaterally. IMPRESSION: No significant plaque or hemodynamically significant stenosis seen in either internal ca rotid artery. Criteria for Assigning % of Stenosis / Diameter reduction (Estimation based on the indirect measurements of the internal carotid artery velocities (ICA PSV). 1. Normal (no stenosis)=ICA PSV < 125 cm/s: ratio < 2.0: ICA EDV<40 cm/s. 2. Less than 50% stenosis=ICA PSV < 125 cm/s: ratio < 2.0: ICA EDV<40 cm/s. 3. 50 to 69% stenosis=ICA PSV of 125 to 230 cm/s: ration 2.0 ? 4.0: ICA EDV 40-100 cm/s. 4. Greater than 70% stenosis to near occlusion= ICA PSV > 230 cm/s: ratio > 4.0: ICA EDV > 100 cm/s. 5. Near occlusion= ICA PSV velocities may be low or undetectable: variable ratio and ICA EDV. 6. Total occlusion=unable to detect flow.
[2018-04-08 17:28] LABS: Hepatitis A Antibody IgM Non-Reactive (Non-Reactive)
[2018-04-08 18:06] LABS: Hepatitis B Core IgM Non-Reactive (Non-Reactive)
[2018-04-08] MEDS: ATORVASTATIN 40 MG TAB PO SCH (20:36)
[2018-04-09] MEDS: NITROGLYCERIN OINT 1 INCH/GM PACKET TOPICAL SCH ×4 (06:07→22:25)
[2018-04-09 06:22] LABS: Basophils % (A) 0 %; Eosinophils # (A) 0.2 k/uL (0-0.7); Eosinophils % (A) 3 %; HCT 39.8 % (39.0-53.0); HGB 13.1 gm/dL (13.0-17.5); Lymphocytes # (A) 2.1 k/uL (1.0-4.8); Lymphocytes % (A) 25 %; MCH 30.5 pg (25.0-35.0); MCV 92.5 fL (80.0-100.0); Mean Platelet Volume 7.1; Monocytes # (A) 0.4 k/uL (0-1.0); Monocytes % (A) 5 %; Neutrophils # (A) 5.4 k/uL (1.3-7.7); Neutrophils % (A) 66 %; Platelet Count 332 k/uL (150-450); RDW 12.9 % (11.5-15.5); WBC 8.2 k/uL (3.8-10.6)
[2018-04-09 06:40] LABS: Anion Gap 8 mmol/L; Blood Urea Nitrogen 10 mg/dL (9-20); Calcium 9.3 mg/dL (8.4-10.2); Carbon Dioxide 23 mmol/L (22-30); Chloride 109 mmol/L (98-107); Glucose 105 mg/dL (74-99); Potassium 4.3 mmol/L (3.5-5.1); Sodium 140 mmol/L (137-145)
[2018-04-09] MEDS: METOPROLOL TARTRATE 12.5 MG TAB PO SCH ×2 (08:05→21:02)
[2018-04-09] MEDS: ASPIRIN 325 MG TAB PO SCH (08:05)
[2018-04-09] MEDS ORDERED: ALPRAZolam 0.25 MG TAB PO PRN (08:57)
[2018-04-09] MEDS ORDERED: ATORVASTATIN 80 MG TAB PO STA (08:57)
[2018-04-09] MEDS ORDERED: ALPRAZolam 0.5 MG TAB PO PRN (08:57)
[2018-04-09] MEDS ORDERED: NITROGLYCERIN SL TABS 0.4 MG TAB SUBLINGUAL PRN (08:57)
[2018-04-09] MEDS ORDERED: ASPIRIN 325 MG TAB PO STA (08:57)
[2018-04-09] MEDS ORDERED: SODIUM CHLORIDE 0.9% 1,000 ML in EMPTY BAG 1 BAG IV ONE (08:57)
--- NOTE | 2018-04-09 10:13 | P.PN ---
Subjective No chest pain or shortness of breath overnight. No nausea or vomiting. He was evaluated by cardiology and cardiothoracic surgery. Underwent carotid Doppler didn't show any significant stenosis and echocardiogram showed preserved EF REVIEW OF SYSTEMS: CONSTITUTIONAL: No fever or chills HEENT: No changes in vision or voice CARDIOVASCULAR: no chest pain or abnormal heart beats, or any swelling in ankles or feet. RESPIRATORY: No wheezing or coughing. GASTROINTESTINAL: No abdominal pain, no nausea no vomiting no constipation or diarrhea GENITOURINARY: no any urinary urgency, frequency or burning, and there has been no blood in her urine. no flank pain. MUSCULOSKELETAL: notes full range of motion of all her joints without pain or swelling. NEUROLOGICAL: , no headache. no vision changes, or fainting. No numbness or tingling. Objective - Vital Signs Vital signs: Vital Signs Temp 98.5 F 04/09/18 08:00 Pulse 57 L 04/09/18 08:00 Resp 16 04/09/18 08:00 BP 116/77 04/09/18 08:00 Pulse Ox 97 04/09/18 08:00 Intake & Output 04/08/18 04/09/18 04/09/18 18:59 06:59 18:59 Intake Total 509.53 20 Balance 509.53 20 Weight 83.1 kg Intake: IV 309.53 20 Sodium Chloride 0.9% 1, 100 20 000 ml @ 100 mls/hr IV . Q10H [facility] Rx#:[id number] Oral 200 Other: Voiding Method Toilet Toilet Toilet # Voids 2 - Exam General: No distress. Oriented x 3, normal mood and affect . Ambulating without difficulty. HEENT: Head: Normocephalic, atraumatic, no visible or palpable masses, depressions, or scaring, conjunctiva clear, sclera non-icteric, EOM intact, PERRL Neck: Supple, without lesions, bruits, or adenopathy, thyroid non-enlarged and non-tender Heart: No cardiomegaly or thrills; regular rate and rhythm, no murmur or gallop Lungs: Clear to auscultation and percussion Abdomen: Bowel sounds normal, no tenderness, organomegaly, masses, or hernia Back: Spine normal without deformity or tenderness, no CVA tenderness Extremities: No amputations or deformities, cyanosis, edema or varicosities, peripheral pulses intact Musculoskeletal: No peripheral joint swelling, pain, erythema. No clubbing Skin: Good turgor, no rash, unusual bruising or prominent lesions - Labs CBC & Chem 7: 04/09/18 05:49 04/09/18 05:49 Labs: Abnormal Lab Results - Last 24 Hours (Table) 04/08/18 04/09/18 Range/Units 12:46 05:49 Chloride 109 H (98-107) mmol/L Glucose 105 H (74-99) mg/dL Ur Specific K[place]ter 1.042 H (1.001-1.035) Microbiology - Last 24 Hours (Table) 04/08/18 12:46 Urine Culture - Preliminary Urine,Voided 04/08/18 12:00 Nasal Screen MRSA/MSSA - Preliminary Nasopharyngeal Swab Assessment and Plan Assessment: 1. Coronary artery disease with de jerry angina Lifestyle modifications Aspirin statin beta yanet Smoking cessation Pending further evaluation by CTS and cardiology 2. Left shoulder pain Due to muscle strain Supportive care Tylenol when necessary Time with Patient: Less than 30
[2018-04-09] MEDS ORDERED: IV FLUID CONTINUATION 1,000 ML IV ONE (15:18)
[2018-04-09] MEDS ORDERED: MIDAZOLAM 2 MG/2 ML VIAL IV ONE (15:26)
[2018-04-09] MEDS ORDERED: LIDOCAINE 1% INJ 10MG/ML (20 ML MDV) SQ ONE (15:29)
[2018-04-09] MEDS ORDERED: BIVALIRUDIN 250 MG in SODIUM CHLORIDE 0.9% 50 ML IV ONE (15:34)
[2018-04-09] MEDS ORDERED: BIVALIRUDIN BOLUS 250 MG/50 ML IV ONE (15:34)
[2018-04-09] MEDS ORDERED: TICAGRELOR 90 MG TAB PO ONE (15:47)
[2018-04-09] MEDS ORDERED: IOPAMIDOL-250 100ML BTL INTRAARTER ONE (15:49)
[2018-04-10] MEDS: NITROGLYCERIN OINT 1 INCH/GM PACKET TOPICAL SCH ×3 (05:56→07:44)
[2018-04-10 06:29] LABS: Basophils % (A) 0 %; Eosinophils # (A) 0.2 k/uL (0-0.7); Eosinophils % (A) 2 %; HCT 38.2 % (39.0-53.0); HGB 12.6 gm/dL (13.0-17.5); Lymphocytes # (A) 1.7 k/uL (1.0-4.8); Lymphocytes % (A) 18 %; MCH 30.6 pg (25.0-35.0); MCHC 32.9 g/dL (31.0-37.0); Mean Platelet Volume 6.9; Monocytes # (A) 0.6 k/uL (0-1.0); Monocytes % (A) 6 %; Neutrophils # (A) 6.9 k/uL (1.3-7.7); Neutrophils % (A) 73 %; Platelet Count 304 k/uL (150-450); RBC 4.11 m/uL (4.30-5.90); RDW 13.1 % (11.5-15.5); WBC 9.5 k/uL (3.8-10.6)
[2018-04-10 06:38] LABS: Anion Gap 7 mmol/L; Blood Urea Nitrogen 10 mg/dL (9-20); Calcium 9.2 mg/dL (8.4-10.2); Carbon Dioxide 26 mmol/L (22-30); Chloride 107 mmol/L (98-107); Glucose 90 mg/dL (74-99); Potassium 4.4 mmol/L (3.5-5.1); Sodium 140 mmol/L (137-145)
[2018-04-10] MEDS: METOPROLOL TARTRATE 12.5 MG TAB PO SCH ×2 (07:44→20:28)
[2018-04-10] MEDS: ASPIRIN 325 MG TAB PO SCH (07:45)
--- NOTE | 2018-04-10 08:35 | AN ---
ANGIOGRAPHY REPORT DATE OF SERVICE: March 09, 2018 PERFORMING PHYSICIAN: Chuy Sanchez MD, medical records clerk. PROCEDURE PERFORMED: Successful stenting of the ostial left anterior descending artery using 3.25 x 15 mm Xience LAWSON with good angiographic results and reduction of stenosis from 70% to 0%. INDICATION: This is a pleasant 48-year-old gentleman with history of smoking, who presented to the hospital with chest discomfort and underwent an exercise treadmill stress test and that came in to be abnormal. Subsequently the patient underwent heart catheterization and was found to have intermediate to severe disease involving the ostial LAD. The patient initially was referred for open heart surgery. Subsequently, we decided to pursue with percutaneous coronary intervention. APPROACH: Right common femoral artery. COMPLICATION: None. LEVEL OF SEDATION: Moderate. SEDATION: Conscious sedation was performed with a sedation length of 21 minutes. PROCEDURE DESCRIPTION: After obtaining an informed consent, the patient was brought to the cardiac label stamper. The right common femoral artery was cannulated using micropuncture technique. Micropuncture wire passed easily and then I placed a 6-Kenyan sheath in the right common femoral artery. After that, anticoagulation was initiated using Angiomax. Subsequently I did wire the LAD using a run-through wire. I did direct stenting on the lesion using 3.25 x 15. After that, I did successful stenting of the lesion in the ostial LAD using 3.25 x 15 mm Xience LAWSON where the stent was positioned under fluoroscopy guidance and deployed under its nominal pressure under 12 atmospheres for 20 seconds with the following angiogram showed good angiographic results with reduction of stenosis from 70% to 0%. The procedure was completed without any complication. POSTPROCEDURE MANAGEMENT: 1. Dual anti-platelet therapy. 2. Risk factor modifications. 3. Follow up with the patient. MMODL / IJN: [id number] /
[2018-04-10] MEDS: ISOSORBIDE MONONITRATE ER 30 MG TAB.ER.24H PO SCH (08:46)
--- NOTE | 2018-04-10 12:03 | P.PN ---
Subjective Patient underwent repeat cardiac catheterization yesterday with drug-eluting stent insertion in ostial LAD area. This morning he did have some chest pain and was evaluated by cardiology and Nitropaste was applied with possible second look cardiac catheterization planned no shortness of breath nausea or vomiting REVIEW OF SYSTEMS: CONSTITUTIONAL: No fever or chills HEENT: No changes in vision or voice CARDIOVASCULAR: Per HPI RESPIRATORY: No wheezing or coughing. GASTROINTESTINAL: No abdominal pain, no nausea no vomiting no constipation or diarrhea GENITOURINARY: no any urinary urgency, frequency or burning, and there has been no blood in her urine. no flank pain. MUSCULOSKELETAL: She notes full range of motion of all her joints without pain or swelling. NEUROLOGICAL: , no headache. no vision changes, or fainting. No numbness or tingling. Objective - Vital Signs Vital signs: Vital Signs Temp 97.2 F L 04/10/18 07:47 Pulse 72 04/10/18 07:47 Resp 19 04/10/18 07:47 BP 126/65 04/10/18 07:47 Pulse Ox 96 04/10/18 07:47 Intake & Output 04/09/18 04/10/18 04/10/18 18:59 06:59 18:59 Intake Total 769.47 95 Output Total 1100 Balance 769.47 -1005 Weight 81.5 kg Intake: IV 123.97 95 0.9 20 IV Fluid Continuation 1, 75 000 ml @ 0 mls/hr IV .[facility] -[facility] Rx#:[id number] Intake, IV Titration 415.5 Amount Sodium Chloride 0.9% 1, 415.5 000 ml In Empty Bag 1 bag @ 1 ML/KG/HR 83.1 mls/hr IV .Q12H3M [facility] Rx#: [id number] Oral 230 Output: Urine 1100 Other: Voiding Method Toilet Toilet # Voids 2 - Exam General: No distress. Oriented x 3, normal mood and affect . Ambulating without difficulty. HEENT: Head: Normocephalic, atraumatic, no visible or palpable masses, depressions, or scaring, conjunctiva clear, sclera non-icteric, EOM intact, PERRL Neck: Supple, without lesions, bruits, or adenopathy, thyroid non-enlarged and non-tender Heart: No cardiomegaly or thrills; regular rate and rhythm, no murmur or gallop Lungs: Clear to auscultation and percussion Abdomen: Bowel sounds normal, no tenderness, organomegaly, masses, or hernia Back: Spine normal without deformity or tenderness, no CVA tenderness Extremities: No amputations or deformities, cyanosis, edema or varicosities, peripheral pulses intact Musculoskeletal: No peripheral joint swelling, pain, erythema. No clubbing Skin: Good turgor, no rash, unusual bruising or prominent lesions - Labs CBC & Chem 7: 04/10/18 05:35 04/10/18 05:35 Labs: Abnormal Lab Results - Last 24 Hours (Table) 04/10/18 Range/Units 05:35 RBC 4.11 L (4.30-5.90) m/uL Hgb 12.6 L (13.0-17.5) gm/dL Hct 38.2 L (39.0-53.0) % Microbiology - Last 24 Hours (Table) 04/08/18 12:46 Urine Culture - Final Urine,Voided 04/08/18 12:00 Nasal Screen MRSA/MSSA - Final Nasopharyngeal Swab Assessment and Plan Assessment: 1. Coronary artery disease with de jerry angina Status post drug-eluting stent to LAD Statin, dual platelet therapy beta yanet Cardiology following Check A1c 2. Left shoulder pain Due to muscle strain Supportive care Tylenol when necessary
[2018-04-10] MEDS ORDERED: ASPIRIN 81 MG PO SCH (13:55)
--- NOTE | 2018-04-10 14:06 | P.PN ---
Subjective Progress Note Date: 04/10/18 This is a pleasant 48-year-old gentleman with history of smoking presented to the hospital complaining of chest discomfort, troponins were negative. He was taken to the cardiac catheterization lab on the , yesterday the patient underwent successful stenting of the ostial LAD. This morning patient was complaining of some chest discomfort, and EKG was performed which showed normal sinus rhythm with no acute changes. Blood pressure 120/70 with a heart rate in the 60s. Temperature 97.8. White blood Cell count 9.5, hemoglobin 12.6, platelet count 304. Sodium 140, potassium 4.4, BUN 10, creatinine 0.9. Patient is currently on aspirin 81 mg daily, Lipitor 40 mg daily, Imdur 30 mg daily added today by Dr. Alvarado, metoprolol 12-1/2 mg one tablet by mouth twice a day, we will also add Brilinta 90 mg one tablet by mouth twice a day to his medication regime. Continue to monitor for another 24 hours. Objective - Vital Signs Vital signs: Vital Signs Temp 97.8 F 04/10/18 12:21 Pulse 58 L 04/10/18 12:21 Resp 17 04/10/18 12:24 BP 121/75 04/10/18 12:21 Pulse Ox 97 04/10/18 12:21 Intake & Output 04/09/18 04/10/18 04/10/18 18:59 06:59 18:59 Intake Total 769.47 95 Output Total 1100 Balance 769.47 -1005 Weight 81.5 kg Intake: IV 123.97 95 0.9 20 IV Fluid Continuation 1, 75 000 ml @ 0 mls/hr IV .STK [facility] Rx#:[id number] Intake, IV Titration 415.5 Amount Sodium Chloride 0.9% 1, 415.5 000 ml In Empty Bag 1 bag @ 1 ML/KG/HR 83.1 mls/hr IV .Q12H3M [facility] Rx#: [id number] Oral 230 Output: Urine 1100 Other: Voiding Method Toilet Toilet # Voids 2 1 - Exam PHYSICAL EXAMINATION: GENERAL: 48-year-old gentleman in no acute distress at the time of my examination HEENT: Head is atraumatic, normocephalic. Pupils equal, round. Sclera anicteric. Conjunctiva are clear. Mucous membranes of the mouth are moist. Neck is supple. There is no elevated jugular venous pressure.] bruit is heard. HEART EXAMINATION: Heart S1, S2 normal. No murmur or gallop heard. CHEST EXAMINATION: Lungs are clear to auscultation and precussion. No chest wall tenderness is noted on palpation or with deep breathing. ABDOMEN: Soft, nontender. Bowel sounds are heard. No organomegaly noted. Right groin soft, no evidence of any hematoma. EXTREMITIES: 2+ peripheral pulses with no evidence of peripheral edema and no calf tenderness noted. NEUROLOGIC patient is awake, alert and oriented ?-3. . - Labs CBC & Chem 7: 04/10/18 05:35 04/10/18 05:35 Labs: Abnormal Lab Results - Last 24 Hours (Table) 04/10/18 Range/Units 05:35 RBC 4.11 L (4.30-5.90) m/uL Hgb 12.6 L (13.0-17.5) gm/dL Hct 38.2 L (39.0-53.0) % Microbiology - Last 24 Hours (Table) 04/08/18 12:46 Urine Culture - Final Urine,Voided 04/08/18 12:00 Nasal Screen MRSA/MSSA - Final Nasopharyngeal Swab Assessment and Plan Plan: Assessment and plan #1 chest pain, status post successful stenting of the ostial LAD #2 hyperlipidemia #3 nicotine dependence Plan Increase Lipitor to 80 mg daily, Brilinta 90 mg one tablet by mouth twice a day to his medication regime. Continue the baby aspirin and a beta yanet. We'll continue to monitor the patient for the next 24 hours, if stable plan for discharge home in the morning. DNP note has been reviewed, I agree with a documented findings and plan of care. Patient was seen and examined.
[2018-04-10] MEDS: TICAGRELOR 90 MG TAB PO SCH ×2 (14:47→20:28)
[2018-04-10 19:41] VITALS: RESP 16
[2018-04-10] MEDS ORDERED: ATORVASTATIN 40 MG TAB PO SCH (21:00)
[2018-04-11 06:36] LABS: Basophils % (A) 0 %; Eosinophils # (A) 0.3 k/uL (0-0.7); Eosinophils % (A) 3 %; HCT 38.7 % (39.0-53.0); Lymphocytes # (A) 1.8 k/uL (1.0-4.8); Lymphocytes % (A) 21 %; MCH 30.9 pg (25.0-35.0); MCHC 33.7 g/dL (31.0-37.0); MCV 91.8 fL (80.0-100.0); Mean Platelet Volume 7.2; Monocytes # (A) 0.5 k/uL (0-1.0); Monocytes % (A) 6 %; Neutrophils % (A) 69 %; Platelet Count 318 k/uL (150-450); RBC 4.22 m/uL (4.30-5.90); RDW 12.9 % (11.5-15.5); WBC 8.7 k/uL (3.8-10.6)
[2018-04-11 06:39] LABS: Anion Gap 7 mmol/L; Blood Urea Nitrogen 11 mg/dL (9-20); Calcium 9.3 mg/dL (8.4-10.2); Carbon Dioxide 24 mmol/L (22-30); Chloride 108 mmol/L (98-107); Glucose 94 mg/dL (74-99); Potassium 4.4 mmol/L (3.5-5.1); Sodium 139 mmol/L (137-145)
[2018-04-11] MEDS: METOPROLOL TARTRATE 12.5 MG TAB PO SCH (09:54)
[2018-04-11] MEDS: ISOSORBIDE MONONITRATE ER 30 MG TAB.ER.24H PO SCH (09:55)
[2018-04-11] MEDS: TICAGRELOR 90 MG TAB PO SCH (09:55)
--- NOTE | 2018-04-11 10:25 | PN ---
PROGRESS NOTE This patient is status post stent to the ostial LAD. The patient gives a history that this morning he walked in the hallway and he had slight discomfort in the left side of the chest. He said on a scale of 1 to 10, it was a half and lasted only for a few seconds. He is doing fairly well. He does not have any resting pain. His EKGs yesterday were normal. First and second heart sounds are normal. Lungs are clear to auscultation percussion. ASSESSMENT AND PLAN: Patient's chest pain appears to be atypical pain. However because of the ostial left anterior descending artery lesion we will do a stress echocardiographic study to make sure there is no evidence of any wall motion abnormality with exercise. Discussed plan with Dr. Sanchez and he agreed. MMCHIKA / ALN: [id number] /
[2018-04-11 12:12] VITALS: BP 92/52; PULSE 64; TEMP 97.2
--- NOTE | 2018-04-11 12:53 | P.PN ---
Subjective Occasional intermittent atypical chest pain. No significant shortness of breath nausea or vomiting. Tolerating medications currently were well. REVIEW OF SYSTEMS: CONSTITUTIONAL: No fever or chills HEENT: No changes in vision or voice CARDIOVASCULAR: Per subjective RESPIRATORY: No wheezing or coughing. GASTROINTESTINAL: No abdominal pain, no nausea no vomiting no constipation or diarrhea GENITOURINARY: no any urinary urgency, frequency or burning, and there has been no blood in her urine. no flank pain. MUSCULOSKELETAL: She notes full range of motion of all her joints without pain or swelling. NEUROLOGICAL: , no headache. no vision changes, or fainting. No numbness or tingling. Objective - Vital Signs Vital signs: Vital Signs Temp 97.2 F L 04/11/18 12:00 Pulse 64 04/11/18 12:00 Resp 16 04/11/18 12:00 BP 92/52 04/11/18 12:00 Pulse Ox 96 04/11/18 12:00 Intake & Output 04/10/18 04/11/18 04/11/18 18:59 06:59 18:59 Intake Total 1062 20 240 Balance 1062 20 240 Weight 81.5 kg 81.2 kg 81.193 kg Intake: IV 20 0.9 20 Oral 1062 240 Other: Voiding Method Toilet # Voids 2 - Exam General: No distress. Oriented x 3, normal mood and affect . Ambulating without difficulty. HEENT: Head: Normocephalic, atraumatic, no visible or palpable masses, depressions, or scaring, conjunctiva clear, sclera non-icteric, EOM intact, PERRL Neck: Supple, without lesions, bruits, or adenopathy, thyroid non-enlarged and non-tender Heart: No cardiomegaly or thrills; regular rate and rhythm, no murmur or gallop Lungs: Clear to auscultation and percussion Abdomen: Bowel sounds normal, no tenderness, organomegaly, masses, or hernia Back: Spine normal without deformity or tenderness, no CVA tenderness Extremities: No amputations or deformities, cyanosis, edema or varicosities, peripheral pulses intact Musculoskeletal: No peripheral joint swelling, pain, erythema. No clubbing Skin: Good turgor, no rash, unusual bruising or prominent lesions - Labs CBC & Chem 7: 04/11/18 05:49 04/11/18 05:49 Labs: Abnormal Lab Results - Last 24 Hours (Table) 04/11/18 04/11/18 Range/Units 05:49 05:49 RBC 4.22 L (4.30-5.90) m/uL Hct 38.7 L (39.0-53.0) % Chloride 108 H (98-107) mmol/L Assessment and Plan Assessment: 1. Coronary artery disease with de jerry angina Status post drug-eluting stent to LAD Statin, dual platelet therapy beta yanet Cardiology following, plan for follow-up stress test 2. Dyslipidemia Lipitor increased to 80 mg daily 3. Smoking Smoking cessation We'll offer nicotine patches at discharge
--- NOTE | 2018-04-11 14:01 | ECHOS ---
STRESS ECHOCARDIOGRAM DATE OF SERVICE: 04/11/2018 INDICATIONS: Chest pain. MEDICATIONS: BASELINE HEART RATE: 61 BASELINE BLOOD PRESSURE: 116/54 MAXIMUM HEART RATE: 168 MAXIMUM BLOOD PRESSURE: 162/69 85% MPHR: 147 100% MPHR: 173 METS: 11.6 MAXIMUM STAGE REACHED: IV TOTAL EXERCISE TIME: 10 minutes CLINICAL INFORMATION: STRESS DATA: Pretesting physical examination showed a heart rate of 61, pressure is 116/54 mmHg. Baseline EKG showed sinus mechanism. The patient exercised on the treadmill according to Rashel protocol for a total of 10 minutes and achieved 11.6 METs. The max heart rate was 168, which is about of maximum predicted heart rate. Maximum blood pressure was 162/69 mmHg. Clinically the patient did not have any symptoms of chest pain or discomfort and the EKG did not show any significant ST or T- wave abnormalities concerning for ischemia. ECHOCARDIOGRAM IMAGES: On echocardiogram images from parasternal long axis view, parasternal short axis view, apical 4 chamber and apical 2 chamber view were obtained as the baseline images, at peak heart rate, as well as on recovery. The echocardiogram images showed good augmentation in the left ventricular systolic function without any evidence of wall motion abnormalities concerning for ischemia. CONCLUSION: 1. Excellent exercise tolerance. 2. Normal EKG in response to exercise. 3. Normal echocardiogram in response to exercise as well. 4. Essentially normal stress echocardiogram for the patient. MMODL / IJN: [id number] /
[2018-04-11 14:24] VITALS: BMI 27.2
--- NOTE | 2018-04-11 14:48 | P.DS ---
Providers Date of admission: 04/10/18 08:55 Attending physician: Kelsy Mccarthy DO Consults: 04/06/18 13:46 Consult Physician Urgent Consulting Provider: Cardiology Samantha Consult Reason/Comments: Unstable angina Do you want consulting provider notified?: Yes 04/08/18 15:35 Consult Physician Urgent Consulting Provider: Leonardo Lindsay Consult Reason/Comments: cad Do you want consulting provider notified?: Already Contacted Primary care physician: Stated None Hospital Course: Chief complaint: Chest pain For full details on admission account see history and physical. Patient is a 48 -year-old male without any significant medical history and with history of smoking. He comes in with chest pain. He described chest pain as retrosternal pressure-like lasting few minutes and accompanied by shortness of breath. This intermittent chest pain started a few weeks ago mostly with exertion but became progressively worse and on the day of the admission he woke up with a chest pain shortness of breath that was lasting about 1050 minutes instructing him to emergency department. Initial workup emergency department show negative troponin and EKG without significant ST-T wave changes. Chest x-ray was negative. Patient was then admitted for further evaluation Echocardiogram: EF 55% without any significant valvular disease and no diastolic dysfunction Cardiac catheterization with LAWSON insertion in ostial LAD Follow-up stress test prior to discharge: negative for inducible ischemia Hospital course: Patient was evaluated by cardiology and stress test was ordered. Due to severe chest pain during stress test stress test had to be aborted. Patient was then taken to cardiac catheterization and found to have significant stenotic lesion at ostial part of LAD. Due to the location and complexity of the lesion cardiothoracic surgery was consulted for possible evaluation for CABG. They felt that medical management along with stenting should be recommended at this point. Patient agreed with that and cardiology perform another catheterization and drug-eluting stent in all still LAD was placed. Subsequently patient was doing well but he started developing more chest pain for which he was taken to cardiac catheterization and found to have patent stent in unchanged findings. On the day of discharge he also complained of some atypical chest pain and he underwent a stress test due to concern of high risk lesion. Stress test was negative for inducible ischemia. Patient was then cleared to be discharged home by cardiology. Admission home medications: None Discharge medications: Aspirin 81 mg daily Brillianta 90 mg twice a day Lopressor 12.5 mg twice a day Imdur 30 mg daily Lipitor 80 mg daily at bedtime Nicotine patch 14 mg daily Plan - Discharge Summary Discharge Rx Participant: No New Discharge Prescriptions: New Aspirin 81 mg PO DAILY #30 chew Atorvastatin [Lipitor] 80 mg PO HS #30 tab Isosorbide Mononitrate ER [Imdur] 30 mg PO DAILY #30 tab.er.24h Metoprolol Tartrate [Lopressor] 12.5 mg PO BID #60 tab Ticagrelor [Brilinta] 90 mg PO BID #60 tab Nicotine 14Mg/24Hr Patch [Habitrol] 1 patch TRANSDERM DAILY #7 patch Discharge Medication List Aspirin 81 mg PO DAILY #30 chew 04/11/18 [Rx] Atorvastatin [Lipitor] 80 mg PO HS #30 tab 04/11/18 [Rx] Isosorbide Mononitrate ER [Imdur] 30 mg PO DAILY #30 tab.er.24h 04/11/18 [Rx] Metoprolol Tartrate [Lopressor] 12.5 mg PO BID #60 tab 04/11/18 [Rx] Nicotine 14Mg/24Hr Patch [Habitrol] 1 patch TRANSDERM DAILY #7 patch 04/11/18 [ Rx] Ticagrelor [Brilinta] 90 mg PO BID #60 tab 04/11/18 [Rx] Follow up Appointment(s)/Referral(s): Chuy Sanchez MD [STAFF PHYSICIAN] - 04/22/18 3:00 pm None,Stated [Primary Care Provider] - 1-2 days Patient Instructions/Handouts: *Surgery [facility] - After Heart Catheterization - [employer] Instructions, How to Stop Smoking (DC), Heart Healthy Diet (DC) , Coronary Intravascular Stent Placement (DC), After Radial Heart Catheterization (GEN) Activity/Diet/Wound Care/Special Instructions: Pt qualifies for $5/mo Brilinta-coupon provided Low fat lowa salt heart healthy diet Discharge Disposition: HOME SELF-CARE
[2018-04-11] MEDS ORDERED: ATORVASTATIN 80 MG TAB PO SCH (21:00)
== END 2018-04-11 15:18 | disposition home or self-care (01) | DRG 247 ==
LOC: EC 12:15 → 3OBS 13:46 → 6SEL 04-08 10:34 → OBSVTOIN 04-10 08:55
PROVIDERS: ADMIT Internal Medicine; ATTEND Internal Medicine
PROC: 027035Z Dilation of Coronary Artery, One Artery with Two Drug-eluting Intraluminal Devices, Percutaneous Approach (ICD-10-PCS; principal; 2018-04-10)
PROC: B2111ZZ Fluoroscopy of Multiple Coronary Arteries using Low Osmolar Contrast (ICD-10-PCS; principal; 2018-04-10)
PROC: 4A023N7 Measurement of Cardiac Sampling and Pressure, Left Heart, Percutaneous Approach (ICD-10-PCS; principal; 2018-04-10)
PROC: 4A033BC Measurement of Arterial Pressure, Coronary, Percutaneous Approach (ICD-10-PCS; principal; 2018-04-10)
DX: I25.110 Atherosclerotic heart disease of native coronary artery with unstable angina pectoris (principal); E78.5 Hyperlipidemia, unspecified; F17.200 Nicotine dependence, unspecified, uncomplicated; I08.1 Rheumatic disorders of both mitral and tricuspid valves; I10 Essential (primary) hypertension; Z79.82 Long term (current) use of aspirin; Z79.899 Other long term (current) drug therapy; Z82.49 Family history of ischemic heart disease and other diseases of the circulatory system; Z83.3 Family history of diabetes mellitus; Z88.0 Allergy status to penicillin; S46.912A Strain of unspecified muscle, fascia and tendon at shoulder and upper arm level, left arm, initial encounter
CPT/HCPCS: 36415; 71046; 80048; 80053; 80061; 80074; 81003; 82550; 82553; 83036; 83735; 84443; 84484; 85025; 85027; 85347; 85610; 85730; 87070; 87086; 93005; 93017; 93306; 93351; 93458; 93571; 93880; 94150; 94760; 96365; 96376; 99291

== ENCOUNTER → 2018-07-08 | Outpatient (CLI) | payer BC ==
[2018-07-08 09:03] LABS: HCT 42.9 % (39.0-53.0); HGB 13.7 gm/dL (13.0-17.5); MCH 30.4 pg (25.0-35.0); MCHC 31.9 g/dL (31.0-37.0); MCV 95.1 fL (80.0-100.0); Mean Platelet Volume 6.5; Platelet Count 357 k/uL (150-450); RBC 4.52 m/uL (4.30-5.90); RDW 12.9 % (11.5-15.5)
[2018-07-08 09:44] LABS: Anion Gap 8 mmol/L; Blood Urea Nitrogen 17 mg/dL (9-20); Carbon Dioxide 26 mmol/L (22-30); Chloride 105 mmol/L (98-107); Potassium 4.5 mmol/L (3.5-5.1); Sodium 139 mmol/L (137-145)
== END | disposition home or self-care (01) ==
LOC: LABPAT 08:20
PROVIDERS: ATTEND Internal Medicine Interventional Cardiology
DX: Z01.812 Encounter for preprocedural laboratory examination (principal); I25.10 Atherosclerotic heart disease of native coronary artery without angina pectoris; E78.5 Hyperlipidemia, unspecified
CPT/HCPCS: 36415; 80051; 82565; 84520; 85027

== ENCOUNTER 2018-07-25 07:46 | Day surgery (SDC) | payer BC, MEDICARE ==
[2018-07-23 08:43] VITALS: BMI 29.0
[~2018-07-25 07:46] MED LIST: ALPRAZolam 0.25 MG TAB PO PRN; ALPRAZolam 0.5 MG TAB PO PRN; ASPIRIN 325 MG TAB PO ONE; ATORVASTATIN 80 MG TAB PO ONE; NITROGLYCERIN SL TABS 0.4 MG TAB SUBLINGUAL PRN; SODIUM CHLORIDE 0.9% 1,000 ML in EMPTY BAG 1 BAG IV ONE
[2018-07-25] MEDS ORDERED: VERAPAMIL 2.5 MG/ML 2 ML AMP ONE (10:04)
[2018-07-25] MEDS ORDERED: MIDAZOLAM 2 MG/2 ML VIAL ONE ×2 (10:04→10:24)
[2018-07-25] MEDS ORDERED: HEPARIN SODIUM 1,000 UN/ML (10ML VL) ONE (10:04)
[2018-07-25] MEDS ORDERED: LIDOCAINE 1% INJ 10MG/ML (20 ML MDV) ONE (10:04)
[2018-07-25] MEDS ORDERED: MIDAZOLAM 2 MG/2 ML VIAL IV ONE ×3 (10:20→10:25)
[2018-07-25] MEDS ORDERED: LIDOCAINE 1% INJ 10MG/ML (20 ML MDV) SQ ONE (10:21)
[2018-07-25] MEDS: VERAPAMIL SYRINGE (5 MG/10 ML) INTRAARTER ONE ×2 (10:33→11:11)
[2018-07-25] MEDS ORDERED: BIVALIRUDIN BOLUS 250 MG/50 ML IV ONE (10:47)
[2018-07-25] MEDS ORDERED: BIVALIRUDIN 250 MG in SODIUM CHLORIDE 0.9% 50 ML IV ONE (10:48)
[2018-07-25] MEDS: NITROGLYCERIN 1000MCG/10ML SYRINGE INTRACORON ONE ×2 (10:58→11:10)
[2018-07-25] MEDS ORDERED: IOPAMIDOL-370 125ML BTL INJ ONE (11:11)
[2018-07-25] MEDS ORDERED: MAG HYDROX/AL HYDROX/SIMETH 30 ML CUP PO PRN (11:18)
[2018-07-25] MEDS ORDERED: ATROPINE SULFATE 0.1 MG/ML 10ML SYRINGE IV PRN (11:18)
[2018-07-25] MEDS ORDERED: ZOLPIDEM 5 MG TAB PO PRN (11:18)
[2018-07-25] MEDS ORDERED: RX INFO: IV CONTRAST WAS GIVEN 1 EACH MISC MISCELLANE PRN (11:18)
[2018-07-25] MEDS ORDERED: NITROGLYCERIN SL TABS 0.4 MG TAB SUBLINGUAL PRN (11:18)
[2018-07-25] MEDS ORDERED: SODIUM CHLORIDE 0.9% 1,000 ML IV SCH (11:30)
--- NOTE | 2018-07-25 11:50 | LTR ---
July 25, 2018 Re: Will Stewart Dear Dr. Frank: Mr. Will Stewart was experiencing chest discomfort. As you know, he is a 48-year-old gentleman with known history of coronary artery disease and prior stenting of the left anterior descending artery. He underwent today a heart catheterization and that revealed patent stent in the LAD, but he does have severe disease involving the right coronary artery which was stented with good angiographic results and without any complication. I want to thank you for allowing me to participate in his care and please do not hesitate to call if you have any question or concern. Sincerely, MD LUKE Kenny / ROXANNE: [id number] /
--- NOTE | 2018-07-25 11:53 | CC ---
CARDIAC CATHETERIZATION REPORT DATE OF SERVICE: 07/25/2018 PERFORMING PHYSICIAN: Chuy Sanchez MD, Food Counselor. PROCEDURE PERFORMED: 1. Selective right and left coronary angiogram. 2. Left heart catheterization. 3. Successful stenting of the mid RCA using 4.0 x 18 mm Xience drug-eluting stent, which was postdilated using 4.5 mm balloon with an excellent angiographic results and reduction of stenosis from 70% to 0%. 4. Fractional flow reserve FFR of the right coronary artery. INDICATION: This is a pleasant 48-year-old gentleman with known history of coronary artery disease and prior stenting of the ostial/proximal left anterior descending artery as well as hypertension and dyslipidemia who was experiencing symptoms of chest discomfort. He underwent a myocardial perfusion imaging stress test and that revealed inducible ischemia. Because of that, a heart catheterization was advised. APPROACH: Right radial artery. COMPLICATION: None. LEVEL OF SEDATION: Moderate with sedation length of 54 minutes. PROCEDURE DESCRIPTION: After obtaining an informed consent, the patient was brought to the cardiac labor crew supervisor. The right radial artery was cannulated using micropuncture technique, the micropuncture wire passed easily, then I placed a 6-Kyrgyz sheath in the right radial artery. At that point, anticoagulation was initiated using heparin as well as the patient was given 2 mg of verapamil IA. After that I did selective right and left coronary angiogram using JR4 and JL3.5 catheters. Left heart catheterization was performed using 5-Kyrgyz pigtail catheter. The procedure was completed without any complication. SELECTIVE CORONARY ANGIOGRAM: 1. The right coronary artery is a large caliber vessel and it is a dominant vessel. The RCA in the proximal portion appears to be normal. In the mid RCA has a tubular lesion, appeared to be in the range of 60%. We did an FFR on it and that came in to be ischemic. The distal RCA is normal and bifurcates into PDA and PLV branches, both are angiographically normal. 2. The left main is angiographically normal, it bifurcates into left circumflex, ramus intermedius, and left anterior descending artery. 3. The left circumflex is a large caliber vessel and it is a nondominant vessel. The left circumflex system is angiographically normal. It gives rise into proximal portion into first OM branch which appeared to be angiographically normal, the mid circumflex is normal and gives rise into the second OM branch which is small caliber vessel, appeared to be normal and the circumflex continued after that as a small-caliber vessel. 4. The ramus intermedius is angiographically normal. 5. The LAD, the ostial and proximal LAD is stented and the stent is patent. The mid LAD is normal and gives rise into first and second diagonal branches, both are angiographically normal and the LAD distally appeared to be normal as well. HEMODYNAMICS: The left ventricular end-diastolic pressure was about 12 mmHg and no gradient was identified across the aortic valve. FFR AND PCI OF THE RCA: Anticoagulation was initiated using Angiomax. Subsequently and after zeroing the Doppler wire and equalizing between the Doppler wire and the guiding catheter, we did fractional flow reserve of the right coronary artery. Actually, as a matter of fact, I did an IFR and that came into be ischemic and because of the FFR was 0.78. We did not have to give adenosine. Because of that, I decided to pursue with an intervention on the right coronary artery. I did balloon the RCA using a 3.5 x 15 mm balloon before I deployed 4.0 x 18 mm Xience drug-eluting stent where the stent was positioned under fluoroscopy guidance and deployed under 12 atmospheres for 20 seconds. I post-dilated the stent using 4.5 mm balloon. The following angiogram showed excellent angiographic results and the procedure was completed without any complication. CONCLUSION: 1. Intermediate to severe lesion involving the mid right coronary artery. The fractional flow reserve was performed and came in to be ischemic. 2. Successful stenting of the mid right coronary artery using 4.0 x 18 mm Xience drug- eluting stent with an excellent angiographic results. 3. Patent stent in the ostial/proximal left anterior descending artery. POSTPROCEDURE MANAGEMENT: 1. Maximize medical treatment. 2. Dual anti-platelet therapy. 3. Risk factors modifications and follow up with the patient. MMODL / IJN: [id number] /
[2018-07-25 14:18] VITALS: RESP 16
[2018-07-25] MEDS: METOPROLOL TARTRATE 12.5 MG TAB PO SCH (20:25)
[2018-07-25] MEDS: TICAGRELOR 90 MG TAB PO SCH (20:25)
[2018-07-26 07:55] LABS: Basophils % (A) 1 %; Eosinophils # (A) 0.4 k/uL (0-0.7); Eosinophils % (A) 4 %; HCT 46.2 % (39.0-53.0); HGB 14.6 gm/dL (13.0-17.5); Lymphocytes # (A) 2.1 k/uL (1.0-4.8); Lymphocytes % (A) 23 %; MCH 30.4 pg (25.0-35.0); MCHC 31.6 g/dL (31.0-37.0); Mean Platelet Volume 6.6; Monocytes # (A) 0.6 k/uL (0-1.0); Monocytes % (A) 6 %; Neutrophils # (A) 5.7 k/uL (1.3-7.7); Neutrophils % (A) 65 %; Platelet Count 377 k/uL (150-450); RBC 4.81 m/uL (4.30-5.90); RDW 13.2 % (11.5-15.5); WBC 8.9 k/uL (3.8-10.6)
[2018-07-26 08:14] LABS: Anion Gap 8 mmol/L; Blood Urea Nitrogen 12 mg/dL (9-20); Calcium 9.7 mg/dL (8.4-10.2); Carbon Dioxide 29 mmol/L (22-30); Chloride 105 mmol/L (98-107); Glucose 88 mg/dL (74-99); Sodium 142 mmol/L (137-145)
[2018-07-26] MEDS: METOPROLOL TARTRATE 12.5 MG TAB PO SCH (08:49)
[2018-07-26] MEDS: TICAGRELOR 90 MG TAB PO SCH (08:49)
[2018-07-26] MEDS ORDERED: ISOSORBIDE MONONITRATE ER 30 MG TAB.ER.24H PO SCH (09:00)
[2018-07-26] MEDS ORDERED: ASPIRIN 81 MG PO SCH (09:00)
[2018-07-26 10:33] VITALS: BP 145/95; PULSE 73; TEMP 98
--- NOTE | 2018-07-26 11:21 | DS ---
DISCHARGE SUMMARY ADMISSION DATE: 07/25/2018 DISCHARGE DATE: 07/26/2018 BRIEF HISTORY: This is a pleasant 48-year-old gentleman with known history of coronary artery disease and prior stenting of the left anterior descending artery, was experiencing symptoms of chest discomfort and underwent a stress test that was concerning for ischemia. Because of that, a heart catheterization was advised. The patient underwent a stress test as an outpatient and that was concerning for ischemia and because of that, a heart catheterization was advised. The heart catheterization revealed patent stent in the LAD with intermediate to severe disease involving the mid right coronary artery and I did perform fractional flow reserve FFR of the right coronary artery and that came in to be ischemic. The patient underwent successful stenting of the right coronary artery with good angiographic results and without any complication. On follow up with him today, he is doing good and he is asymptomatic. I am going to discharge patient on dual anti-platelet therapy and I will follow up with the patient in the office as an outpatient. LUKE / ROXANNE: [id number] /
[2018-07-26] MEDS ORDERED: ATORVASTATIN 80 MG TAB PO SCH (21:00)
== END 2018-07-26 11:41 | disposition home or self-care (01) ==
LOC: CATHCVL 07:46 → EDSTATUS 09:00 → 3SCARD 16:47 → CATHCVL 07-26 11:41
PROVIDERS: ATTEND Internal Medicine Interventional Cardiology
DX: I25.110 Atherosclerotic heart disease of native coronary artery with unstable angina pectoris (principal); R94.39 Abnormal result of other cardiovascular function study; I11.0 Hypertensive heart disease with heart failure; I50.22 Chronic systolic (congestive) heart failure; I25.5 Ischemic cardiomyopathy; I47.2 Ventricular tachycardia; E78.5 Hyperlipidemia, unspecified; E78.00 Pure hypercholesterolemia, unspecified; F17.210 Nicotine dependence, cigarettes, uncomplicated; Z95.5 Presence of coronary angioplasty implant and graft; Z79.02 Long term (current) use of antithrombotics/antiplatelets; Z79.82 Long term (current) use of aspirin; Z79.899 Other long term (current) drug therapy; Z88.0 Allergy status to penicillin
CPT/HCPCS: 93571; 93458; 80048; 85025; C9600; C1887; C1725 ×2; C1874; C1769; C1894; J2250; J2001; J0583; J1644; Q9967

== ENCOUNTER → 2019-09-16 | Outpatient (CLI) | payer BC ==
[2019-09-16 14:16] LABS: HCT 45.5 % (39.0-53.0); HGB 14.5 gm/dL (13.0-17.5); MCH 31.2 pg (25.0-35.0); MCHC 31.9 g/dL (31.0-37.0); MCV 97.7 fL (80.0-100.0); Mean Platelet Volume 7.4; Platelet Count 417 k/uL (150-450); RBC 4.66 m/uL (4.30-5.90); RDW 12.5 % (11.5-15.5); WBC 8.9 k/uL (3.8-10.6)
== END | disposition home or self-care (01) ==
LOC: LABPAT 13:02
PROVIDERS: ATTEND Surgery Plastic and Reconstructive Surgery
DX: Z01.812 Encounter for preprocedural laboratory examination (principal)
CPT/HCPCS: 36415; 85027

== ENCOUNTER 2019-09-21 09:58 | Observation (INO) | payer BC ==
[2019-09-16 12:39] VITALS: BMI 29.6
--- NOTE | 2019-09-20 18:37 | P.GSHP ---
History of Present Illness H&P Date: 09/21/19 CHIEF COMPLAINT: Inguinal hernia, right. HISTORY OF PRESENT ILLNESS: The patient is a 49-year-old male who presents with a history of swelling and pain along the right groin. He's noted increased swelling including pain of the area. Now he presents for repair of his inguinal hernia. PAST MEDICAL HISTORY: Please see list. PAST SURGICAL HISTORY: Please see list. MEDICATIONS: Please see list. ALLERGIES: Please see list. SOCIAL HISTORY: No illicit drug use FAMILY HISTORY: No reports of Crohn disease or ulcerative colitis. REVIEW OF ORGAN SYSTEMS: CONSTITUTIONAL: No reports of fevers or chills. No reports of weight loss despite prior attempts. PHYSICAL EXAM: VITAL SIGNS: Stable GENERAL: Well-developed pleasant male in no acute distress. HEENT: No scleral icterus. Extraocular movements grossly intact. Moist buccal mucosa. NECK: Supple without lymphadenopathy. CHEST: Unlabored respirations. Equal bilateral excursions. CARDIOVASCULAR: Regular rate and rhythm. Distal 2+ pulses. ABDOMEN: Soft, nondistended. No peritoneal signs. Palpable defect of the right groin. MUSCULOSKELETAL: No clubbing, cyanosis, or edema. ASSESSMENT: 1. Inguinal hernia, right PLAN: 1. Recommend proceeding with a robotic inguinal repair with mesh with possible bilateral approach. 2. Benefits and risks of surgical intervention was discussed including possibility of open technique. 3. DVT prophylaxis. 4. Antibiotic prophylaxis. Past Medical History Past Medical History: Hyperlipidemia, Hypertension Additional Past Medical History / Comment(s): PAST HX HTN (NO MEDS) History of Any Multi-Drug Resistant Organisms: None Reported Past Surgical History: Heart Catheterization With Stent, Orthopedic Surgery Additional Past Surgical History / Comment(s): left knee surgery, cyst removed on right wrist , Heart Cath with stent (Mar 2018 and Jun 2018 @ [facility]) Past Anesthesia/Blood Transfusion Reactions: No Reported Reaction Date of Last Stent Placement:: JUN 2018 Past Psychological History: No Psychological Hx Reported Smoking Status: Current every day smoker Past Alcohol Use History: None Reported Additional Past Alcohol Use History / Comment(s): SMOKES 1/2 PPD, SMOKING SINCE 19 YEARS OLD Past Drug Use History: Marijuana Additional Drug Use History / Comment(s): NO CURRENT MARIJUANA - Past Family History Father Family Medical History: Diabetes Mellitus Additional Family Medical History / Comment(s): CABG at age of 52 Mother Additional Family Medical History / Comment(s): from Cerebral aneurysm Brother(s) Family Medical History: Diabetes Mellitus Medications and Allergies Home Medications Medication Instructions Recorded Confirmed Type Aspirin 81 mg PO DIRECTED 09/16/19 09/16/19 History Allergies Allergy/AdvReac Type Severity Reaction Status Date / Time Penicillins Allergy Anaphylaxis Verified 09/16/19 12:15
[~2019-09-21 09:58] MED LIST changes: -ALPRAZolam 0.25 MG TAB PO PRN; -ALPRAZolam 0.5 MG TAB PO PRN; -ASPIRIN 325 MG TAB PO ONE; -ATORVASTATIN 80 MG TAB PO ONE; +CLINDAMYCIN 900 MG in DEXTROSE 5% IN WATER 50 ML IVPB ONE; +DEXAMETHASONE SOD PHOSPHATE 10 MG/ML 1 ML VIAL IV ONE; +HEPARIN SODIUM,PORCINE 5,000 UNIT/ML 1 ML VIAL SQ ONE; +HYDROmorphone 0.5 MG/0.5 ML SYRINGE IVP PRN; +LEVOFLOXACIN 500MG-D5W PMX 500 MG in DEXTROSE/WATER 1 100ML.BAG IVPB ONE; +MIDAZOLAM 2 MG/2 ML VIAL IV PRN; -NITROGLYCERIN SL TABS 0.4 MG TAB SUBLINGUAL PRN; +ONDANSETRON 4 MG/2 ML VIAL IVP ONE; +SCOPOLAMINE 1.5MG/72HR PATCH TRANSDERM ONE; -SODIUM CHLORIDE 0.9% 1,000 ML in EMPTY BAG 1 BAG IV ONE
[2019-09-21] MEDS: LACTATED RINGERS 1,000 ML IV SCH (10:55)
[2019-09-21 11:48] LABS: ALT 14 U/L (4-49); AST 42 U/L (17-59); African American GFR (CKD) >90 (>60 ml/min/1.73 sqM); Albumin 4.5 g/dL (3.5-5.0); Alkaline Phosphatase 58 U/L (38-126); Anion Gap 10 mmol/L; Blood Urea Nitrogen 14 mg/dL (9-20); Calcium 9.8 mg/dL (8.4-10.2); Carbon Dioxide 23 mmol/L (22-30); Chloride 109 mmol/L (98-107); Glucose 89 mg/dL (74-99); Non-African American GFR(CKD) >90 (>60 ml/min/1.73 sqM); Potassium 4.5 mmol/L (3.5-5.1); Sodium 142 mmol/L (137-145); Total Bilirubin 0.8 mg/dL (0.2-1.3); Total Protein 7.6 g/dL (6.3-8.2)
[2019-09-21] MEDS ORDERED: fentaNYL (PF) 50 MCG/ML 2 ML AMP IV ONE (12:59)
[2019-09-21] MEDS ORDERED: PROPOFOL 10 MG/ML 20 ML VIAL IV ONE (13:55)
[2019-09-21] MEDS ORDERED: KETAMINE 10 MG/ML 20 ML VIAL ONE (13:55)
[2019-09-21] MEDS ORDERED: MIDAZOLAM 2 MG/2 ML VIAL ONE (13:55)
[2019-09-21] MEDS ORDERED: ROPIVACAINE 5 MG/ML 30 ML VIAL ONE (13:55)
[2019-09-21] MEDS ORDERED: SUCCINYLCHOLINE CHLORIDE 100 MG/5 ML SYR IV ONE (13:55)
[2019-09-21] MEDS ORDERED: fentaNYL (PF) 50 MCG/ML 2 ML AMP ONE (13:55)
[2019-09-21] MEDS ORDERED: .MORPHINE SULFATE (INJ) 10 MG/ML SYRINGE ONE (13:55)
[2019-09-21] MEDS ORDERED: GLYCOPYRROLATE 0.2 MG/ML 2 ML VIAL ONE (13:55)
[2019-09-21] MEDS ORDERED: ROCURONIUM BROMIDE 10 MG/ML 10 ML VIAL IV ONE (13:55)
[2019-09-21] MEDS ORDERED: NEOSTIGMINE 1 MG/ML 10 ML VIAL ONE (13:55)
[2019-09-21] MEDS ORDERED: LIDOCAINE 1% INJ 10MG/ML (20 ML MDV) ONE (13:55)
[2019-09-21] MEDS ORDERED: LIDOCAINE 1%-EPI 1:100,000 20 ML VIAL SQ ONE (14:27)
[2019-09-21] MEDS ORDERED: LACTATED RINGERS 1,000 ML IV ONE (15:10)
--- NOTE | 2019-09-21 15:22 | P.ANPRN ---
Procedure Note - Anesthesia - Nerve Block Performed Right Transversus Abdominis Single Time Out Performed: Yes Date of Procedure: 09/21/19 Procedure Start Time: 13:00 Procedure Stop Time: 13:10 Location of Patient: PreOp Indication: Acute Post-Operative Pain Specifically requested for management of pain by DrNasra: Jen Pena Sedation Type: Sedate with meaningful contact maintained Preparation: Sterile Prep Position: Supine Catheter: None Needle Types: Pajunk Needle Gauge: 20 Ultrasound used to visualize needle placement: Yes Ultrasound used to observe medication spread: Yes Injectate: Other (see comment) (0.25% ropivacaine/0.5% lidocaine 30 mL) Adjunct: Epinephrine (see comment for dilution ratio) (1:200,000) Blood Aspirated: No Pain Paresthesia on Injection Noted: No Resistance on Injection: Normal Image Stored and Saved: Yes Events: Uneventful and Well Tolerated
[2019-09-21] MEDS ORDERED: HYDROmorphone 1 MG/ML 1 ML SYRINGE IVP PRN (16:20)
[2019-09-21] MEDS ORDERED: ACETAMINOPHEN TAB 325 MG TAB PO PRN (16:20)
[2019-09-21] MEDS ORDERED: METOCLOPRAMIDE 5 MG/ML 2 ML VIAL IVP PRN (16:20)
[2019-09-21] MEDS ORDERED: ONDANSETRON 4 MG/2 ML VIAL IVP PRN (16:20)
[2019-09-21] MEDS ORDERED: NALOXONE 0.4 MG/ML 1 ML VIAL IV PRN (16:20)
--- NOTE | 2019-09-21 16:36 | P.OP ---
Date of Procedure: 09/21/19 Description of Procedure: SURGEON: JEN PENA MD PREOPERATIVE DIAGNOSES: 1. Large right inguinal hernia, initial 2. Coronary artery disease status post stent placement POSTOPERATIVE DIAGNOSES: 1. Large right inguinal hernia, initial, with incarceration and small bowel obstruction 2. Coronary artery disease status post stent placement 3. Chronic appendicitis with appendicolith OPERATION: 1. Robotic-assisted da Jack Xi laparoscopic reduction repair of initial incarcerated right indirect inguinal hernia with mesh, 11.[address] 2. Robotic-assisted da Jack Xi laparoscopic appendectomy ANESTHESIA: General with local anesthetic ESTIMATED BLOOD LOSS: 5 mL. SPECIMENS: 1. Appendix 2. Incarcerated right inguinal hernia sac COMPLICATIONS: None. FINDINGS: 1. Incarcerated right inguinal hernia over 4 x 3 cm, Nyhus IV, incorporating small bowel with obstruction and scrotal contents to mid thigh 2. Chronic appendicitis with appendicolith involved in hernia sac also resected INDICATIONS: The patient is a 49-year-old male who presents with history of initial right inguinal hernia. He reports changes in bowel habits as a result. Now he presents for definitive surgical intervention. Laparoscopic versus open and robotic approaches were discussed including bilateral approach. Benefits and risks including bleeding, infection, chronic groin pain, sterility were reviewed. Placement of mesh was also described. Informed consent was obtained. DESCRIPTION: In the preoperative area, an abdominal block was placed per anesthesia. The patient was brought to the operating room and initially laid in supine position. The abdomen had been prepped and draped in standard sterile fashion. Ioban draping was also placed. Prior to incision, a timeout protocol was confirmed with surgical team regarding patient's name including procedures to be performed. Initial positioning for the robotic assisted ports were selected 20 cm superior to the target anatomy. A 0 degree 5 mm laparoscopic trocar entry was performed at the left upper quadrant. The abdomen was insufflated to 15 mmHg which he tolerated well. Diagnostic laparoscopy demonstrated no injury to bowel, viscera or mesentery. Along the right groin, a large indirect hernia involving incarcerated small bowel was found. The appendix and cecum was being pulled into the hernia sac. Separately, along the left groin was completely secured by the sigmoid colon with adhesions. Next, along the epigastrium, 8 mm robot trocar was placed. An 8-mm robotic trocar was placed under direct visualization at the right upper quadrant. An 8 mm port was placed at the left upper quadrant. All trocars were positioned between 10-cm apart from each other. The EndoSphere XI robot was primed, draped, prepared for docking along upper abdomen of the patient. The patient was positioned 16 steep Trendelenbu rg position. I then went to the EndoSphere Xi console. The dietetic assistant was at bedside for exchange of the robot arms and equipment. Attention was brought to the right groin. A large right inguinal defect was confirmed as the small intestine was reduced from the right groin. Next, the right groin defect was measured 4 x 3-cm hernia with the sac extending to the scrotum. A large indirect hernia was confirmed, Nyhus type IV. The right inguinal hernia sac was evaginated whereby the peritoneum was scored using Endo scissors with cautery and vessel sealer . As the hernia sac extended into the groin, partial resection of the sac was done. The peritoneal sac of the hernia was stripped. The sac was resected and then passed off for further pathological analysis. The size of the hernia defect was 4 cm x 3 cm with intraoperative films obtained. Using a 2-0 VLOC nonabsorbable, the peritoneal defect of the right inguinal hernia site was closed using a running suture. The defect was found to be completely closed with complete reduction of the right direct inguinal hernia was confirmed. As an onlay, an 11.[address] mesh by [employer] was cut in half and entered into the abdominal cavity via the 8 mm trocar. The mesh was tacked to the pelvis using 2-0 VLOC 9-inch length sutures. Dense adhesions of the cecum and appendix was identified with appendicolith found. The cecum and appendix were mobilized from the pelvis. Secondary to appendicolith found with chronic changes of chronic appendicitis, the appendix was prepared for resection. The mesoappendix and appendix were mobilized. The trocar along the left upper quadrant were exchanged for 12 mm port. A blue 45 mm staple load was fired across the base of the appendix. A final endoscopic imaging was obtained. The robot was undocked from the patient's bedside. I then rescrubbed into the case. Insufflation was released from the abdominal cavity and all instruments were removed from the abdominal cavity. Pressure was applied along the left groin. The rest of incisions were reapproximated using 4-0 Monocryl in a running subcuticular fashion. Local anesthetic was placed along the incision including for a bilateral groin block. Incisions were cleansed using dilute hydrogen peroxide. Liquid glue was applied to the skin. At the end of the procedure, the needle, sponge and instrument counts had been verified correct by the surgical territory manager. The patient had tolerated the procedure well and was taken to the postanesthesia care unit in stable condition. Plan - Discharge Summary Discharge Rx Participant: Yes New Discharge Prescriptions: New Tamsulosin [Flomax] 0.4 mg PO DAILY #5 cap.er.24h Ibuprofen [Motrin] 600 mg PO Q8HR PRN #30 tab PRN Reason: Pain Acetaminophen Tab [Tylenol Tab] 1,000 mg PO Q6HR PRN #30 tablet Continue Aspirin 81 mg PO DIRECTED Discharge Medication List Aspirin 81 mg PO DIRECTED 09/16/19 [History] Acetaminophen Tab [Tylenol Tab] 1,000 mg PO Q6HR PRN #30 tablet 09/21/19 [Rx] Ibuprofen [Motrin] 600 mg PO Q8HR PRN #30 tab 09/21/19 [Rx] Tamsulosin [Flomax] 0.4 mg PO DAILY #5 cap.er.24h 09/21/19 [Rx] Follow up Appointment(s)/Referral(s): Jen Pena MD [STAFF PHYSICIAN] - 09/29/19 Patient Instructions/Handouts: Inguinal Hernia Repair (DC), Laparoscopic Herniorrhaphy (IP), Laparoscopic Appendectomy (GEN) Activity/Diet/Wound Care/Special Instructions: No lifting over 10 pounds in 2 weeks until Oct 05. December shower. No bath tub soaks for two weeks until Oct 05 Diet as tolerated. No driving while on narcotics. Use Tylenol and ibuprofen or Aleve scheduled for the next 24-48 hours for best pain relief. Use ice along incisions for the today to prevent swelling. Discharge Disposition: HOME SELF-CARE
[2019-09-21] MEDS ORDERED: TAMSULOSIN 0.4 MG CAP.ER.24H PO ONE (18:00)
[2019-09-21] MEDS: KETOROLAC 30 MG/ML 1 ML VIAL IVP SCH (18:13)
--- NOTE | 2019-09-21 19:41 | P.PN ---
Progress Note - Text Progress Note Date: 09/21/19 Patient was kept secondary to history of ischemic cardiomyopathy including expected urinary retention. Intraoperative films reviewed. Awaiting voiding status. Patient may be discharged home tomorrow once urinary retention resolves.
[2019-09-21] MEDS: D5-0.45% NACL WITH KCL 20MEQ/L 1,000 ML IV SCH (20:43)
[2019-09-21] MEDS: SIMETHICONE 80 MG CHEWABLE PO SCH (20:43)
[2019-09-22] MEDS: KETOROLAC 30 MG/ML 1 ML VIAL IVP SCH ×2 (01:33→05:51)
[2019-09-22] MEDS: LACTATED RINGERS 1,000 ML IV SCH (05:16)
[2019-09-22] MEDS: D5-0.45% NACL WITH KCL 20MEQ/L 1,000 ML IV SCH (05:50)
[2019-09-22] MEDS ORDERED: TAMSULOSIN 0.4 MG CAP.ER.24H PO SCH (08:30)
[2019-09-22] MEDS: SIMETHICONE 80 MG CHEWABLE PO SCH (08:41)
[2019-09-22] MEDS ORDERED: LEVOFLOXACIN 500MG-D5W PMX 500 MG in DEXTROSE/WATER 1 100ML.BAG IVPB SCH (09:00)
[2019-09-22] MEDS ORDERED: ENOXAPARIN 30 MG/0.3 ML SYRINGE SQ SCH (09:00)
[2019-09-22 09:02] VITALS: BP 128/78; PULSE 60; RESP 17; TEMP 97.8
--- NOTE | 2019-09-22 12:17 | P.DS ---
Providers Date of admission: 09/22/19 05:53 Expected date of discharge: 09/22/19 Attending physician: Jen Pena Primary care physician: Dannie Mendez Hospital Course: 49-year-old male who underwent robotic-assisted laparoscopic reduction and repair of initial incarcerated right indirect inguinal hernia with mesh and appendectomy. Patient is doing well postoperatively without any immediate complications. Patient had expected urinary retention postoperatively was started on Flomax. He has since been voiding without difficulty. He is stable for discharge home today. He is to follow up on an outpatient basis. Please see EMR for further hospital course details. Discharge diagnosis 1. Large right inguinal hernia, initial, with incarceration and small bowel obstruction 2. Coronary artery disease status post stent placement 3. Chronic appendicitis with appendicolith 4. Expected urinary retention, resolved Nurse practitioner note has been reviewed by physician. Signing provider agrees with the documented findings, assessment, and plan of care. Plan - Discharge Summary Discharge Rx Participant: No New Discharge Prescriptions: New Tamsulosin [Flomax] 0.4 mg PO DAILY #5 cap.er.24h Ibuprofen [Motrin] 600 mg PO Q8HR PRN #30 tab PRN Reason: Pain Acetaminophen Tab [Tylenol Tab] 1,000 mg PO Q6HR PRN #30 tablet Continue Aspirin 81 mg PO DIRECTED Discharge Medication List Aspirin 81 mg PO DIRECTED 09/16/19 [History] Acetaminophen Tab [Tylenol Tab] 1,000 mg PO Q6HR PRN #30 tablet 09/21/19 [Rx] Ibuprofen [Motrin] 600 mg PO Q8HR PRN #30 tab 09/21/19 [Rx] Tamsulosin [Flomax] 0.4 mg PO DAILY #5 cap.er.24h 09/21/19 [Rx] Follow up Appointment(s)/Referral(s): Jen Pena MD [STAFF PHYSICIAN] - 09/29/19 1:40 pm Patient Instructions/Handouts: Laparoscopic Herniorrhaphy (IP), Inguinal Hernia Repair (DC), Laparoscopic Appendectomy (GEN) Activity/Diet/Wound Care/Special Instructions: No lifting over 10 pounds in 2 weeks until Oct 05. May shower. No bath tub soaks for two weeks until Oct 05 Diet as tolerated. No driving while on narcotics. Use Tylenol and ibuprofen or Aleve scheduled for the next 24-48 hours for best pain relief. Use ice along incisions for the today to prevent swelling. Discharge Disposition: HOME SELF-CARE
== END 2019-09-22 10:25 | disposition home or self-care (01) ==
LOC: OR 09:58 → 4SSUR 17:49 → OR 09-22 05:58
PROVIDERS: ADMIT Surgery Plastic and Reconstructive Surgery; ATTEND Surgery Plastic and Reconstructive Surgery
DX: K40.30 Unilateral inguinal hernia, with obstruction, without gangrene, not specified as recurrent (principal); K38.1 Appendicular concretions; I25.5 Ischemic cardiomyopathy; I10 Essential (primary) hypertension; E78.5 Hyperlipidemia, unspecified; I25.10 Atherosclerotic heart disease of native coronary artery without angina pectoris; F17.210 Nicotine dependence, cigarettes, uncomplicated; Z83.3 Family history of diabetes mellitus; Z82.3 Family history of stroke; Z95.5 Presence of coronary angioplasty implant and graft; Z79.82 Long term (current) use of aspirin; Z88.0 Allergy status to penicillin
CPT/HCPCS: 44970; 49329; 49650; S2900; 64486; 64488; 80053; 88302; 88304

== ENCOUNTER → 2023-10-22 | Outpatient (CLI) | payer BC ==
--- NOTE | 2023-10-25 10:29 | MR ---
EXAMINATION TYPE: MR brain wo con DATE OF EXAM: 10/22/2023 COMPARISON: 10/24/2023 INDICATION: Pain and difficulty breathing TECHNIQUE: Frontal and lateral views of the chest are obtained. FINDINGS: The heart size is normal. The pulmonary vasculature is normal. The lungs are clear. IMPRESSION: 1. No acute pulmonary process.
== END | disposition home or self-care (01) ==
LOC: RADMRIMAIN 06:31
PROVIDERS: ATTEND Family Medicine
DX: I63.50 Cerebral infarction due to unspecified occlusion or stenosis of unspecified cerebral artery (principal)
CPT/HCPCS: 70551

== ENCOUNTER 2023-11-14 08:40 | Day surgery (SDC) | payer BC ==
[2023-11-12 12:32] VITALS: BMI 29.6
[2023-11-14] MEDS: SODIUM CHLORIDE 0.9% 1,000 ML IV ONE (08:58)
[2023-11-14] MEDS ORDERED: fentaNYL (PF) 50 MCG/ML 2 ML AMP ONE (09:19)
[2023-11-14] MEDS: BENZOCAINE SPRAY 1 CAN TOPICAL ONE (09:22)
[2023-11-14 09:43] VITALS: TEMP 98.7
[2023-11-14] MEDS: MIDAZOLAM 2 MG/2 ML VIAL IVP ONE ×2 (09:49→09:50)
[2023-11-14] MEDS: fentaNYL (PF) 50 MCG/ML 2 ML AMP IVP ONE (09:49)
[2023-11-14 10:57] VITALS: RESP 16
--- NOTE | 2023-11-14 11:15 | P.PCN ---
Date of Procedure: 11/14/23 Operative Findings: TRANSESOPHAGEAL ECHOCARDIOGRAM POWER SWEEPER OPERATOR: BENJIE CARRASCO MD, RPVI INDICATION: Rule out cardiac source of embolization SEDATION: Conscious sedation COMPLICATION: None LEVEL OF SEDATION Moderate with sedation length of 18 minutes PROCEDURE DESCRIPTION: After obtaining an informed consent, the patient was brought to transesophageal echocardiogram room. Pulse oximetry and heart monitors were attached to the patient. The patient throat was sprayed using lidocaine. The patient was turned into left lateral position. After that a bite guard was placed. After an appropriate conscious sedation was initiated, the transesophageal echocardiogram was advanced through a bite guard into the mid esophagus. A 2-D echocardiogram images, color Doppler images, continuous wave images, pulse-wave images, of various cardiac structure were performed. After that the transesophageal echocardiogram probe was advanced into the stomach and fixed to obtain transgastric view was. The probe was brought into the mid esophagus. Inter-atrial septum was interrogated using 2D images, color Doppler images, and then contrast study. After that transesophageal echocardiogram was withdrawn out and upon withdrawing the descending thoracic aorta all the way up to the arch was evaluated. CONCLUSION: 1. 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 Normal LV systolic function 3. Normal intracardiac valves 4. No evidence of pericardial effusion
[2023-11-14 12:43] VITALS: BP 119/68; PULSE 66
== END 2023-11-14 11:00 | disposition home or self-care (01) ==
LOC: CATHCVL 08:40
PROVIDERS: ATTEND Internal Medicine Interventional Cardiology
DX: I25.10 Atherosclerotic heart disease of native coronary artery without angina pectoris (principal); I10 Essential (primary) hypertension; E78.5 Hyperlipidemia, unspecified; Z87.891 Personal history of nicotine dependence; Z95.5 Presence of coronary angioplasty implant and graft; Z79.82 Long term (current) use of aspirin; Z79.899 Other long term (current) drug therapy; Z88.0 Allergy status to penicillin
CPT/HCPCS: 93312; 93320; 93325; J2250; J3010

== ENCOUNTER → 2023-12-02 | Outpatient (CLI) | payer BC ==
[2023-12-02 16:21] LABS: Blood Urea Nitrogen 11.5 mg/dL (9.0-27.0); Carbon Dioxide 24.9 mmol/L (21.6-31.8); Chloride 105 mmol/L (96-109); Potassium 4.6 mmol/L (3.5-5.5); Sodium 142 mmol/L (135-145)
[2023-12-02 17:05] LABS: HCT 43.9 % (39.6-50.0); MCH 30.8 pg (27.0-32.0); MCHC 31.9 g/dL (32.0-37.0); MCV 96.5 FL (80.0-97.0); Mean Platelet Volume 10.3 FL (9.5-12.2); NRBC Per 100 WBC 0 X 10*3/uL (0.00-0.01); Platelet Count 443 X 10*3/uL (140-440); RBC 4.55 X 10*6/uL (4.40-5.60); RDW 14.2 % (11.5-14.5)
== END | disposition home or self-care (01) ==
LOC: LABPAT 11:28
PROVIDERS: ATTEND Internal Medicine Interventional Cardiology
DX: Z01.812 Encounter for preprocedural laboratory examination (principal); I25.10 Atherosclerotic heart disease of native coronary artery without angina pectoris
CPT/HCPCS: 36415; 80051; 82565; 84520; 85027

== ENCOUNTER 2023-12-11 06:40 | Day surgery (SDC) | payer BC ==
[2023-12-11] MEDS ORDERED: ALPRAZolam 0.25 MG TAB PO PRN (06:51)
[2023-12-11] MEDS ORDERED: NITROGLYCERIN SL TABS 0.4 MG TAB SUBLINGUAL PRN (06:51)
[2023-12-11] MEDS ORDERED: ALPRAZolam 0.5 MG TAB PO PRN (06:51)
[2023-12-11] MEDS: SODIUM CHLORIDE 0.9% 1,000 ML in EMPTY BAG 1 BAG IV SCH (07:26)
[2023-12-11] MEDS: ASPIRIN 325 MG TAB PO STA (07:33)
[2023-12-11] MEDS ORDERED: fentaNYL (PF) 50 MCG/ML 2 ML AMP ONE (08:07)
[2023-12-11] MEDS ORDERED: HEPARIN SODIUM 1,000 UN/ML (10ML VL) ONE (08:08)
[2023-12-11] MEDS ORDERED: LIDOCAINE 1% INJ 10MG/ML (20 ML MDV) ONE (08:08)
[2023-12-11] MEDS: MIDAZOLAM 2 MG/2 ML VIAL IVP ONE (08:29)
[2023-12-11] MEDS: LIDOCAINE 1% INJ 10MG/ML (20 ML MDV) SQ ONE ×2 (08:37)
[2023-12-11] MEDS: HEPARIN SODIUM 1,000 UN/ML (10ML VL) IVP ONE (08:45)
[2023-12-11] MEDS ORDERED: CLOPIDOGREL 75 MG TAB ONE (08:52)
[2023-12-11] MEDS: CLOPIDOGREL 75 MG TAB PO ONE (08:56)
[2023-12-11] MEDS ORDERED: ACETAMINOPHEN TAB 500 MG TAB PO PRN (09:11)
--- NOTE | 2023-12-11 09:18 | P.PCN ---
Date of Procedure: 12/11/23 Operative Findings: PERCUTANEOUS CLOSURE OF FENESTRATED INTERATRIAL SEPTUM PERFORMING PHYSICIAN: Chuy Sanchez MD, [facility] PROCEDURE PERFORMED: 1. Successful percutaneous closure of PFO using 30 mm CARDIOFOR device with an excellent result 2. Intracardiac echocardiogram imaging along with contrast study (bubble study) 3. Ultrasound-guided access of the right common femoral veins x 2 INDICATION: PFO in this 53-year-old gentleman who had a stroke recently. APPROACH: Right common femoral vein 2 COMPLICATION: None. LEVEL OF SEDATION: Moderate with sedation length of 30 minutes. PROCEDURE DESCRIPTION: After obtaining informed consent, the patient was brought to the cardiac computer lab para professional. The right common femoral vein was cannulated x2 using micropuncture technique under ultrasound guidance, the micropuncture wire passed easily, then I placed two 8-Bahraini sheath in the right groin. Subsequently I cannulated the left common femoral vein with the same technique and I placed an 8-Bahraini sheath there as well. At that point, anticoagulation was initiated using heparin and the patient was given a bolus of 10,000 units of heparin IV with continuous ACT monitoring throughout the procedure. After that, the intracardiac echocardiogram probe was advanced through one of the venous sheath all the way to the right atrium where we did interrogate the interatrial septum and identified and we decided to move forward using 30 mm cardio form device. Subsequently, I did cross the defect using 0.035 J-wire with the backup support of multipurpose catheter. The wire was advanced all the way to the left upper pulmonary vein and subsequently the catheter was advanced over the wire to the left upper pulmonary vein. The 0.035 J-wire was pulled out and then I advanced a nahum wire. Subsequently, the multipurpose catheter was withdrawn out and the wire was left in the left upper pulmonary vein. After that, I did prep the device under saline with continuous flush. Subsequently the 8 Bahraini sheath was exchanged over 035 wire into 12 Bahraini. Subsequently the device was advanced through the sheath under continuous flush using saline. Then the device was advanced to the left atrium where the left atrial occluder was deployed first and subsequently the right atrial occluder. After interrogation using intracardiac echo I was satisfied with the results. The device was released. Contra study was performed and showed no crossing. The procedure was completed with no complication POSTPROCEDURE MANAGEMENT: 1. Dual anti-platelet therapy. 2. An echo in 24 hours
[2023-12-11] MEDS: ATORVASTATIN 80 MG TAB PO STA (13:08)
[2023-12-11] MEDS: ATORVASTATIN 40 MG TAB PO SCH (22:12)
[2023-12-11] MEDS: COLCHICINE 0.6 MG EACH PO SCH (22:12)
[2023-12-12 04:52] VITALS: RESP 18
[2023-12-12] MEDS: ASPIRIN 325 MG TAB PO SCH (08:30)
[2023-12-12] MEDS: allopurinoL 100 MG TAB PO SCH (08:30)
[2023-12-12] MEDS: CLOPIDOGREL 75 MG TAB PO SCH (08:31)
--- NOTE | 2023-12-12 08:34 | XR ---
EXAMINATION TYPE: XR chest 2V DATE OF EXAM: 12/12/2023 6:34 AM CLINICAL INDICATION:Male, 53 years old with history of ASD/PFO placement; [facility] COMPARISON: None TECHNIQUE: XR chest 2V Frontal and lateral views of the chest. FINDINGS: Lungs/Pleura: There is no evidence of pleural effusion, focal consolidation, or pneumothorax. Pulmonary vascularity: Unremarkable. Heart/mediastinum: Cardiomediastinal silhouette is unremarkable. Atrial septal defect occlusion devic e present Musculoskeletal: No acute osseous pathology. Other findings: None IMPRESSION: 1. No acute cardiopulmonary disease/process. 2. Atrial septal defect occlusion device appears in appropriate position.
[2023-12-12] MEDS ORDERED: ASPIRIN 81 MG PO SCH (09:00)
--- NOTE | 2023-12-12 10:36 | CA ---
Transthoracic Echo Report Name: Will Stewart Age: 53 Gender: M : 1970 Exam Date: 12/12/2023 07:40 Exam Location: [facility] Ht (in): 68 Wt (lb): 190 Ordering Physician: Chuy Sanchez MD ([id number]) Attending/Referring Phys: Software Implementation Specialist Polly Thompson RCS Procedure CPT: Indications: Post ASD/PFO Insertion Cardiac Hx: Technical Quality: Good Contrast 1: Total Dose (mL): Contrast 2: Total Dose (mL): MEASUREMENTS (Male / Female) Normal Values 2D ECHO LV Diastolic Diameter PLAX 5.5 cm 4.2 - 5.9 / 3.9 - 5.3 cm LV Systolic Diameter PLAX 3.7 cm IVS Diastolic Thickness 0.9 cm 0.6 - 1.0 / 0.6 - 0.9 cm LVPW Diastolic Thickness 0.9 cm 0.6 - 1.0 / 0.6 - 0.9 cm LV Relative Wall Thickness 0.3 LVOT Diameter 2.0 cm Aortic Root Diameter 2.6 cm LA Volume 58.0 cm??? 18 - 58 / 22 - 52 cm??? LA Volume Index 28.2 cm???/m??? 16 - 28 cm???/m??? Ascending Aorta Diameter 3.3 cm M-MODE LV Diastolic Diameter MM 5.4 cm 4.2 - 5.9 / 3.9 - 5.3 cm LV Systolic Diameter MM 3.5 cm LV Cardiac Index MM Teich 2682.5 cm???/min???m??? IVS Diastolic Thickness MM 0.7 cm 0.6 - 1.0 / 0.6 - 0.9 cm LVPW Diastolic Thickness MM 1.3 cm 0.6 - 1.0 / 0.6 - 0.9 cm LV Relative Wall Thickness MM 0.4 0.24 - 0.42 / 0.22 - 0.42 LV Mass Index MM 103.2 g/m??? 49 - 115 / 43 - 95 g/m??? DOPPLER AV Peak Velocity 147.8 cm/s AV Peak Gradient 8.7 mmHg AV Mean Velocity 101.5 cm/s AV Mean Gradient 4.6 mmHg AV Velocity Time Integral 28.3 cm LVOT Peak Velocity 103.7 cm/s LVOT Peak Gradient 4.3 mmHg LVOT Velocity Time Integral 21.1 cm LVOT Stroke Volume 66.9 cm??? LVOT Stroke Volume Index 33.4 ml/m??? LVOT Cardiac Index 1985.0 cm???/min???m??? AV Area Cont Eq vti 2.4 cm??? AV Area Cont Eq pk 2.2 cm??? MV Area PHT 3.0 cm??? Mitral E Point Velocity 46.9 cm/s Mitral A Point Velocity 51.4 cm/s Mitral E to A Ratio 0.9 MV Deceleration Time 248.9 ms PV Peak Velocity 91.0 cm/s PV Peak Gradient 3.3 mmHg FINDINGS Left Ventricle Left ventricular ejection fraction is estimated at 55-60 %. Mildly increased posterior wall thickness. Left ventricular cavity size normal. No obvious regional wall motion abnormalities. Right Ventricle Right ventricle not well visualized. Unable to estimate right ventricular systolic function. Right Atrium Normal right atrial size. Left Atrium Normal left atrial size. Mitral Valve Structurally normal mitral valve. No evidence for mitral valve prolapse. No mitral stenosis. Trace mitral regurgitation. Aortic Valve Trileaflet aortic valve. No aortic valve stenosis or regurgitation. Tricuspid Valve Structurally normal tricuspid valve. No tricuspid stenosis. No tricuspid regurgitation. Pulmonic Valve Pulmonic valve not well visualized. No pulmonic stenosis. No pulmonic regurgitation. Pericardium No pericardial effusion. Aorta Normal size aortic root and proximal ascending aorta. CONCLUSIONS Normal LV function Successful closure of the PFO without any shunting Previewed by: Dr. Isaac Hussein MD (Electronically Signed) Final Date: 12 December 2023 10:35
--- NOTE | 2023-12-12 11:03 | P.CRDCN ---
History of Present Illness History of present illness: This is a 53-year-old male who underwent PFO closure with Dr. Sanchez on December 11, 2023. Patient is doing well post procedure with no immediate complications. Patient's vital signs are stable. Post procedure echocardiogram reveals normal LV function and successful closure of PFO without any shunting. Patient is stable for discharge home today from a cardiac standpoint. Patient will be discharged home on dual antiplatelet therapy in the form of aspirin and Plavix. Please see EMR for further hospital course details. Discharge diagnoses 1. PFO, status post PFO closure Nurse practitioner note has been reviewed by physician. Signing provider agrees with the documented findings, assessment, and plan of care documented by WATER INSPECTOR as a scribe. Past Medical History Past Medical History: Chest Pain / Angina, CVA/TIA, Hyperlipidemia, Hypertension, Myocardial Infarction (SC), Skin Disorder Additional Past Medical History / Comment(s): Recent hospitilization @[facility] 09[facility]-23- pt states, "I was SOB, blurred vision, and no feeling to lt leg." "They said something about a TIA." Pt states he still has numbmess to lt leg. Is being worked up for RA through a [facility], hx of gout, arthritis both knees, Psoriasis. Last Myocardial Infarction Date:: 2017 History of Any Multi-Drug Resistant Organisms: None Reported Past Surgical History: Heart Catheterization With Stent, Orthopedic Surgery Additional Past Surgical History / Comment(s): left knee surgery, cyst removed on right wrist Past Anesthesia/Blood Transfusion Reactions: No Reported Reaction Additional Past Anesthesia/Blood Transfusion Reaction / Comment(s): No hx of blood transfusion. Date of Last Stent Placement:: JUN 2018 Past Psychological History: No Psychological Hx Reported Additional Psychological History / Comment(s): Pt resides with spouse and step- son. Smoking Status: Former smoker Past Alcohol Use History: None Reported Additional Past Alcohol Use History / Comment(s): Quit smoking 2021. SMOKED 1/2 PPD, started smoking at 19 YEARS OLD. Pt vapes occasionally. Past Drug Use History: Marijuana Additional Drug Use History / Comment(s): CURRENT MARIJUANA. Smokes joints. Pt instructed no Marijuana use 24 hours before procedure. - Past Family History Father Family Medical History: Diabetes Mellitus Additional Family Medical History / Comment(s): CABG at age of 52. of massive SC age 54. Mother Additional Family Medical History / Comment(s): from Cerebral aneurysm Brother(s) Family Medical History: Diabetes Mellitus Medications and Allergies Home Medications Medication Instructions Recorded Confirmed Type Aspirin 81 mg PO QAM 09/16/19 12/11/23 History Acetaminophen Tab [Tylenol] 1,000 mg PO Q6HR PRN 11/12/23 12/11/23 History Atorvastatin Calcium [Lipitor] 40 mg PO HS 11/12/23 12/11/23 History Cholecalciferol (Vitamin D3) 1,250 mcg PO FR 12/06/23 12/11/23 History [Vitamin D3 (1250 Mcg = 50,000 Iu)] Colchicine 0.6 mg PO BID 12/06/23 12/11/23 History Febuxostat 40 mg PO QAM 12/06/23 12/11/23 History Clopidogrel [Plavix] 75 mg PO DAILY #90 tab 12/12/23 Rx Allergies Allergy/AdvReac Type Severity Reaction Status Date / Time Penicillins Allergy Severe Anaphylaxis Verified 12/11/23 07:27 Physical Exam Vitals: Vital Signs Temp Pulse Pulse Resp BP Pulse Ox 12/12/23 08:00 98.0 F 68 84 18 124/62 96 12/12/23 04:00 97.9 F 81 18 142/78 98 12/12/23 02:00 81 19 12/12/23 00:00 98.0 F 81 18 133/83 97 12/11/23 20:00 98.2 F 62 19 138/90 99 12/11/23 16:00 98.1 F 66 18 141/92 98 12/11/23 11:23 75 18 131/72 97 Intake and Output 12/11/23 12/12/23 12/12/23 22:59 06:59 14:59 Intake Total 120 120 Balance 120 120 Intake: Oral 120 120 Other: Voiding Method Toilet Toilet Toilet # Voids 2 1 Results Current Medications Generic Name Dose Route Start Last Admin Trade Name Freq PRN Reason Stop Dose Admin Acetaminophen 1,000 mg 12/11/23 09:11 Acetaminophen Tab 500 Mg Tab PO 01/10/24 09:12 Q6HR PRN Pain Allopurinol 200 mg 12/12/23 09:00 12/12/23 08:30 Allopurinol 100 Mg Tab PO 01/11/24 09:01 200 mg QAM DASHAWN Administration Alprazolam 0.25 mg 12/11/23 06:51 Alprazolam 0.25 Mg Tab PO 01/10/24 06:52 Q6HR PRN Mild Anxiety Alprazolam 0.5 mg 12/11/23 06:51 Alprazolam 0.5 Mg Tab PO 01/10/24 06:52 Q6HR PRN Moderate Anxiety Aspirin 325 mg 12/12/23 09:00 12/12/23 08:30 Aspirin 325 Mg Tab PO 01/11/24 09:01 325 mg DAILY DASHAWN Administration Atorvastatin Calcium 40 mg 12/11/23 21:00 12/11/23 22:12 Atorvastatin 40 Mg Tab PO 01/10/24 21:01 40 mg HS DASHAWN Administration Clopidogrel Bisulfate 75 mg 12/12/23 09:00 12/12/23 08:31 Clopidogrel 75 Mg Tab PO 01/11/24 09:01 75 mg DAILY DASHAWN Administration Colchicine 0.6 mg 12/11/23 21:00 12/12/23 08:30 Colchicine 0.6 Mg Each PO 01/10/24 21:01 0.6 mg BID DASHAWN Administration Ergocalciferol 1,250 mcg 12/13/23 09:00 Ergocalciferol 1,250 Mcg (50,000 Iu) Capsule PO 01/12/24 09:01 FR DASHAWN Sodium Chloride 1,000 ml/ IV 1,000 mls @ 83.915 mls/hr 12/11/23 06:51 12/12/23 06:32 Solution IV 01/10/24 06:52 Not Given .[id number] DASHAWN 1 ML/KG/HR Nitroglycerin 0.4 mg 12/11/23 06:51 Nitroglycerin Sl Tabs 0.4 Mg Tab SUBLINGUAL 01/10/24 06:52 Q5M PRN Chest Pain Intake and Output 12/11/23 12/12/23 12/12/23 22:59 06:59 14:59 Intake Total 120 120 Balance 120 120 Intake: Oral 120 120 Other: Voiding Method Toilet Toilet Toilet # Voids 2 1
--- NOTE | 2023-12-12 11:06 | P.DS ---
Providers Attending physician: Chuy Sanchez Primary care physician: Stated None Hospital Course: This is a 53-year-old male who underwent PFO closure with Dr. Sanchez on December 11, 2023. Patient is doing well post procedure with no immediate complications. Patient's vital signs are stable. Post procedure echocardiogram reveals normal LV function and successful closure of PFO without any shunting. Patient is stable for discharge home today from a cardiac standpoint. Patient will be discharged home on dual antiplatelet therapy in the form of aspirin and Plavix. Please see EMR for further hospital course details. Discharge diagnoses 1. PFO, status post PFO closure Nurse practitioner note has been reviewed by physician. Signing provider agrees with the documented findings, assessment, and plan of care documented by DRIVER LICENSE TECHNICIAN as a scribe. Plan - Discharge Summary Discharge Rx Participant: No New Discharge Prescriptions: New Clopidogrel [Plavix] 75 mg PO DAILY #90 tab Continue Aspirin 81 mg PO QAM Atorvastatin Calcium [Lipitor] 40 mg PO HS Cholecalciferol (Vitamin D3) [Vitamin D3 (1250 Mcg = 50,000 Iu)] 1,250 mcg PO FR Colchicine 0.6 mg PO BID Acetaminophen Tab [Tylenol] 1,000 mg PO Q6HR PRN PRN Reason: Pain Febuxostat 40 mg PO QAM Discharge Medication List Aspirin 81 mg PO QAM 09/16/19 [History] Acetaminophen Tab [Tylenol] 1,000 mg PO Q6HR PRN 11/12/23 [History] Atorvastatin Calcium [Lipitor] 40 mg PO HS 11/12/23 [History] Cholecalciferol (Vitamin D3) [Vitamin D3 (1250 Mcg = 50,000 Iu)] 1,250 mcg PO FR 12/06/23 [History] Colchicine 0.6 mg PO BID 12/06/23 [History] Febuxostat 40 mg PO QAM 12/06/23 [History] Clopidogrel [Plavix] 75 mg PO DAILY #90 tab 12/12/23 [Rx] Follow up Appointment(s)/Referral(s): Chuy Sanchez MD [STAFF PHYSICIAN] - 1 Week
[2023-12-12 11:25] VITALS: BP 124/62; PULSE 84; TEMP 98
[2023-12-13] MEDS ORDERED: ERGOCALCIFEROL 1,250 MCG (50,000 IU) CAPSULE PO SCH (09:00)
== END 2023-12-12 11:58 | disposition home or self-care (01) ==
LOC: CATHCVL 06:40 → 3SCARD 12:37 → CATHCVL 12-12 11:58
PROVIDERS: ATTEND Internal Medicine Interventional Cardiology
DX: I25.10 Atherosclerotic heart disease of native coronary artery without angina pectoris (principal); I10 Essential (primary) hypertension; E78.5 Hyperlipidemia, unspecified; F17.210 Nicotine dependence, cigarettes, uncomplicated; Z88.0 Allergy status to penicillin; Z79.899 Other long term (current) drug therapy
CPT/HCPCS: 93306; 93580; 93662; 86900; 86901; 86850; 71046; C1894 ×2; C1769 ×2; C1760; C1817; C1759; J2250; J0690; J2001; J1644

== ENCOUNTER 2023-12-30 09:25 | Inpatient (IN) | payer BC ==
[2023-12-30] MEDS: SODIUM CHLORIDE 0.9% 1,000 ML IV STA (10:50)
--- NOTE | 2023-12-30 10:52 | ED ---
Weakness HPI - General Chief complaint: Weakness Stated complaint: Lethargic Time Seen by Provider: 12/30/23 09:44 Source: patient, RN notes reviewed Mode of arrival: ambulatory Limitations: no limitations - History of Present Illness Initial comments: This is a 53-year-old male who presents to the emergency department for weakness. Patient had a procedure on 12/10 to repair a PFO with Dr. Sanchez. Prior to this on 12/08 he had an abnormal stress test. He has a cardiac catheterization scheduled for 01/06, but states that they wanted to repair the PFO before doing this. States that 6 days ago he had an episode where he felt like his heart was pounding and his heart rate went above 200 bpm and he had chest pain. He took a nitroglycerin from his friend which improved his symptoms. However after this episode he has been increasingly fatigued. States that he has no energy and is spending most of the day sleeping. He does not have any chest pain. He has pain in the left knee, which he attributes to gout. He called his PCP regarding his concerns and was advised to come to the emergency department for evaluation. MD Complaint: generalized weakness - Related Data Home Medications Medication Instructions Recorded Confirmed Aspirin 81 mg PO DAILY 09/16/19 12/30/23 Acetaminophen Tab [Tylenol] 1,000 mg PO Q6HR PRN 11/12/23 12/30/23 Atorvastatin Calcium [Lipitor] 40 mg PO HS 11/12/23 12/30/23 Colchicine 0.6 mg PO BID 12/06/23 12/30/23 Febuxostat 40 mg PO DAILY 12/06/23 12/30/23 Ergocalciferol (Vitamin D2) 1,250 mcg PO FR 12/30/23 12/30/23 [Drisdol (50,000 Iu)] Previous Rx's Medication Instructions Recorded Clopidogrel [Plavix] 75 mg PO DAILY #90 tab 12/12/23 Allergies Allergy/AdvReac Type Severity Reaction Status Date / Time Penicillins Allergy Severe Anaphylaxis Verified 12/30/23 11:25 Review of Systems ROS Statement: Those systems with pertinent positive or pertinent negative responses have been documented in the HPI. ROS Other: All systems not noted in ROS Statement are negative. Past Medical History Past Medical History: Chest Pain / Angina, CVA/TIA, Hyperlipidemia, Hyp ertension, Myocardial Infarction (NV), Skin Disorder Additional Past Medical History / Comment(s): Recent hospitilization @[facility] 09-29-23- pt states, "I was SOB, blurred vision, and no feeling to lt leg." "They said something about a TIA." Pt states he still has numbmess to lt leg. Is being worked up for RA through a Supply Planner, hx of gout, arthritis both knees, Psoriasis. Last Myocardial Infarction Date:: 2017 History of Any Multi-Drug Resistant Organisms: None Reported Past Surgical History: Heart Catheterization With Stent, Orthopedic Surgery Additional Past Surgical History / Comment(s): left knee surgery, cyst removed on right wrist Past Anesthesia/Blood Transfusion Reactions: No Reported Reaction Additional Past Anesthesia/Blood Transfusion Reaction / Comment(s): No hx of blood transfusion. Date of Last Stent Placement:: JUN 2018 Past Psychological History: No Psychological Hx Reported Smoking Status: Current some day smoker Past Alcohol Use History: None Reported Past Drug Use History: Marijuana - Past Family History Father Family Medical History: Diabetes Mellitus Additional Family Medical History / Comment(s): CABG at age of 52. of massive NV age 54. Mother Additional Family Medical History / Comment(s): from Cerebral aneurysm Brother(s) Family Medical History: Diabetes Mellitus General Exam Limitations: no limitations General appearance: alert, in no apparent distress Head exam: Present: atraumatic, normocephalic, normal inspection Respiratory exam: Present: normal lung sounds bilaterally. Absent: respiratory distress, wheezes, rales, rhonchi, stridor Cardiovascular Exam: Present: regular rate, normal rhythm, normal heart sounds. Absent: systolic murmur, diastolic murmur, rubs, gallop, clicks Neurological exam: Present: alert, oriented X3, CN II-XII intact Psychiatric exam: Present: normal affect, normal mood Skin exam: Present: warm, dry, intact, normal color. Absent: rash Course Vital Signs 12/30/23 12/30/23 12/30/23 09:35 12:41 15:23 Temperature 98.2 F Pulse Rate 91 86 75 Respiratory 20 22 20 Rate Blood Pressure 146/85 122/81 131/83 O2 Sat by Pulse 100 98 97 Oximetry Medical Decision Making - Medical Decision Making This is a 53 year old male who presents to the emergency department for weakness. Was pt. sent in by a medical professional or institution? @ -His PCP Did you speak to anyone other than the patient for history? @ -No Did you review nursing and triage notes? @ -Yes, and I agree, it is accurate with regards to the patient's symptoms. Were old charts reviewed? @ -No Differential Diagnosis? @ -Differential Weakness: Hypoglycemia, shock, sepsis, hyponatremia, anemia, infection, NV, ETOH, adverse medicine reaction, overdose, stroke, this is not meant to be an all-inclusive list. EKG interpreted by me (3pts min.)? @ -EKG interpreted by me demonstrating the following: Sinus rhythm. Ventricular rate 83 bpm, AL interval 133 ms, QRS duration 105 ms, QTc 411 ms. X-rays interpreted by me (1pt min.)? @ -Chest x-ray obtained, my interpretation identifies no localized consolidations or infiltrates. CT interpreted by me (1pt min.)? @ -CTA of the chest obtained. My interpretation identifies a left upper lobe PE. U/S interpreted by me (1pt. min.)? @ -Duplex ultrasound of the bilateral lower extremities obtained. My interpretation identifies no evidence of a DVT. What testing was considered but not performed? (CT, X-rays, U/S, labs)? Why? @ -None What meds were considered but not given? Why? @ -None Did you discuss the management of the patient with other professionals? @ -Yes, Dr. Cummins, who accepts the patient for admission. Did you reconcile home meds? @ -Yes Was smoking cessation discussed for >3mins.? @ -I discussed smoking cessation for greater than 3 minutes. The risk of smoking were discussed with the patient including but not limited to risks of cancer, stroke, coronary artery disease and COPD. Also discussed with patient were multiple methods of quitting smoking. Lastly we discussed the financial cost of smoking. Was critical care preformed (if so, how long)? @ -No Were there social determinants of health that impacted care today? How? (Homelessness, low income, unemployed, alcoholism, drug addiction, transportation, low edu. Level, literacy, decrease access to med. care, residential, rehab)? @ -No Was there de-escalation of care discussed even if they declined? (Discuss DNR or withdrawal of care, Hospice)? @ -No What co-morbidities impacted this encounter? (DM, HTN, Smoking, COPD, CAD, Cancer, CVA, Hep., AIDS, mental health diagnosis, sleep apnea, morbid obesity)? @ -HTN, HLD, CAD, smoking Was patient admitted / discharged? @ -Admitted. Lab work demonstrates an elevated D-dimer of 1.5 and was otherwise fairly unremarkable. Urinalysis negative for signs of infection. COVID, influenza, and RSV testing negative. Chest x-ray reveals no acute process. CTA of the chest obtained demonstrating a left upper lobe pulmonary embolus. There is no evidence of right heart strain. Patient started on high intensity heparin protocol. Patient admitted to medicine for left upper lobe pulmonary embolus. Consult placed for pulmonology. Duplex ultrasound of the bilateral lower extremities obtained after admission, which returned negative for a DVT. Undiagnosed new problem with uncertain prognosis? @ -None Drug Therapy requiring intensive monitoring for toxicity (Heparin, Nitro, Insulin, Cardizem)? @ -None Were any procedures done? @ -None Diagnosis/symptom? @ -Pulmonary embolus Acute, or Chronic, or Acute on Chronic? @ -Acute Uncomplicated (without systemic symptoms) or Complicated (systemic symptoms)? @ -Complicated Side effects of treatment? @ -None Exacerbation, Progression, or Severe Exacerbation] @ -Not applicable Poses a threat to life or bodily function? @ -Yes This case was discussed in detail with the attending ED physician, Dr. Burger. P resentation, findings, and treatment plan discussed in detail as well. - Lab Data Result diagrams: 12/30/23 10:32 12/30/23 10:32 Lab Results 12/30/23 12/30/23 12/30/23 Range/Units 10:32 10:32 10:32 WBC 9.7 (3.8-10.6) k/uL RBC 4.23 L (4.30-5.90) m/uL Hgb 12.7 L (13.0-17.5) gm/dL Hct 38.7 L (39.0-53.0) % MCV 91.5 (80.0-100.0) fL MCH 30.1 (25.0-35.0) pg MCHC 32.9 (31.0-37.0) g/dL RDW 12.9 (11.5-15.5) % Plt Count 456 H (150-450) k/uL MPV 8.4 Neutrophils % 75 % Lymphocytes % 13 % Monocytes % 6 % Eosinophils % 5 % Basophils % 1 % Neutrophils # 7.3 (1.3-7.7) k/uL Lymphocytes # 1.2 (1.0-4.8) k/uL Monocytes # 0.5 (0-1.0) k/uL Eosinophils # 0.5 (0-0.7) k/uL Basophils # 0.1 (0-0.2) k/uL PT 11.1 (10.0-12.5) sec INR 1.0 (<1.2) APTT 27.5 (22.0-30.0) sec D-Dimer 1.50 H (<0.60) mg/L FEU Sodium 139 (137-145) mmol/L Potassium 3.8 (3.5-5.1) mmol/L Chloride 101 (98-107) mmol/L Carbon Dioxide 28 (22-30) mmol/L Anion Gap 10 mmol/L BUN 11 (9-20) mg/dL Creatinine 0.79 (0.66-1.25) mg/dL Est GFR (CKD-EPI)AfAm >90 (>60 ml/min/1.73 sqM) Est GFR (CKD-EPI)NonAf >90 (>60 ml/min/1.73 sqM) Glucose 91 (74-99) mg/dL Plasma Lactic Acid Harshil (0.7-2.0) mmol/L Calcium 9.4 (8.4-10.2) mg/dL Magnesium 1.9 (1.6-2.3) mg/dL Total Bilirubin 1.5 H (0.2-1.3) mg/dL AST 38 (17-59) U/L ALT 14 (4-49) U/L Alkaline Phosphatase 77 (38-126) U/L Troponin I (0.000-0.034) ng/mL Total Protein 7.0 (6.3-8.2) g/dL Albumin 3.9 (3.5-5.0) g/dL Urine Color Urine Appearance (Clear) Urine pH (5.0-8.0) Ur Specific [place] (1.001-1.035) Urine Protein (Negative) Urine Glucose (UA) (Negative) Urine Ketones (Negative) Urine Blood (Negative) Urine Nitrite (Negative) Urine Bilirubin (Negative) Urine Urobilinogen (<2.0) mg/dL Ur Leukocyte Esterase (Negative) Influenza Type A (PCR) (Not Detectd) Influenza Type B (PCR) (Not Detectd) RSV (PCR) (Not Detectd) SARS-CoV-2 (PCR) (Not Detectd) 12/30/23 12/30/23 12/30/23 Range/Units 10:32 10:32 11:58 WBC (3.8-10.6) k/uL RBC (4.30-5.90) m/uL Hgb (13.0-17.5) gm/dL Hct (39.0-53.0) % MCV (80.0-100.0) fL MCH (25.0-35.0) pg MCHC (31.0-37.0) g/dL RDW (11.5-15.5) % Plt Count (150-450) k/uL MPV Neutrophils % % Lymphocytes % % Monocytes % % Eosinophils % % Basophils % % Neutrophils # (1.3-7.7) k/uL Lymphocytes # (1.0-4.8) k/uL Monocytes # (0-1.0) k/uL Eosinophils # (0-0.7) k/uL Basophils # (0-0.2) k/uL PT (10.0-12.5) sec INR (<1.2) APTT (22.0-30.0) sec D-Dimer (<0.60) mg/L FEU Sodium (137-145) mmol/L Potassium (3.5-5.1) mmol/L Chloride (98-107) mmol/L Carbon Dioxide (22-30) mmol/L Anion Gap mmol/L BUN (9-20) mg/dL Creatinine (0.66-1.25) mg/dL Est GFR (CKD-EPI)AfAm (>60 ml/min/1.73 sqM) Est GFR (CKD-EPI)NonAf (>60 ml/min/1.73 sqM) Glucose (74-99) mg/dL Plasma Lactic Acid Harshil 1.3 (0.7-2.0) mmol/L Calcium (8.4-10.2) mg/dL Magnesium (1.6-2.3) mg/dL Total Bilirubin (0.2-1.3) mg/dL AST (17-59) U/L ALT (4-49) U/L Alkaline Phosphatase (38-126) U/L Troponin I <0.012 (0.000-0.034) ng/mL Total Protein (6.3-8.2) g/dL Albumin (3.5-5.0) g/dL Urine Color Yellow Urine Appearance Clear (Clear) Urine pH 6.0 (5.0-8.0) Ur Specific [place] 1.026 (1.001-1.035) Urine Protein Trace H (Negative) Urine Glucose (UA) Negative (Negative) Urine Ketones 2+ H (Negative) Urine Blood Negative (Negative) Urine Nitrite Negative (Negative) Urine Bilirubin Negative (Negative) Urine Urobilinogen 8.0 (<2.0) mg/dL Ur Leukocyte Esterase Negative (Negative) Influenza Type A (PCR) (Not Detectd) Influenza Type B (PCR) (Not Detectd) RSV (PCR) (Not Detectd) SARS-CoV-2 (PCR) (Not Detectd) 12/30/23 Range/Units 12:03 WBC (3.8-10.6) k/uL RBC (4.30-5.90) m/uL Hgb (13.0-17.5) gm/dL Hct (39.0-53.0) % MCV (80.0-100.0) fL MCH (25.0-35.0) pg MCHC (31.0-37.0) g/dL RDW (11.5-15.5) % Plt Count (150-450) k/uL MPV Neutrophils % % Lymphocytes % % Monocytes % % Eosinophils % % Basophils % % Neutrophils # (1.3-7.7) k/uL Lymphocytes # (1.0-4.8) k/uL Monocytes # (0-1.0) k/uL Eosinophils # (0-0.7) k/uL Basophils # (0-0.2) k/uL PT (10.0-12.5) sec INR (<1.2) APTT (22.0-30.0) sec D-Dimer (<0.60) mg/L FEU Sodium (137-145) mmol/L Potassium (3.5-5.1) mmol/L Chloride (98-107) mmol/L Carbon Dioxide (22-30) mmol/L Anion Gap mmol/L BUN (9-20) mg/dL Creatinine (0.66-1.25) mg/dL Est GFR (CKD-EPI)AfAm (>60 ml/min/1.73 sqM) Est GFR (CKD-EPI)NonAf (>60 ml/min/1.73 sqM) Glucose (74-99) mg/dL Plasma Lactic Acid Harshil (0.7-2.0) mmol/L Calcium (8.4-10.2) mg/dL Magnesium (1.6-2.3) mg/dL Total Bilirubin (0.2-1.3) mg/dL AST (17-59) U/L ALT (4-49) U/L Alkaline Phosphatase (38-126) U/L Troponin I (0.000-0.034) ng/mL Total Protein (6.3-8.2) g/dL Albumin (3.5-5.0) g/dL Urine Color Urine Appearance (Clear) Urine pH (5.0-8.0) Ur Specific [place] (1.001-1.035) Urine Protein (Negative) Urine Glucose (UA) (Negative) Urine Ketones (Negative) Urine Blood (Negative) Urine Nitrite (Negative) Urine Bilirubin (Negative) Urine Urobilinogen (<2.0) mg/dL Ur Leukocyte Esterase (Negative) Influenza Type A (PCR) Not Detected (Not Detectd) Influenza Type B (PCR) Not Detected (Not Detectd) RSV (PCR) Not Detected (Not Detectd) SARS-CoV-2 (PCR) Not Detected (Not Detectd) - Radiology Data Radiology results: report reviewed, image reviewed Disposition Clinical Impression: Pulmonary embolus, left, Nicotine dependence Disposition: ADMITTED IP TO THIS [facility] Time of Disposition: 14:09
[2023-12-30 11:07] LABS: ALT 14 U/L (4-49); AST 38 U/L (17-59); African American GFR (CKD) >90 (>60 ml/min/1.73 sqM); Albumin 3.9 g/dL (3.5-5.0); Alkaline Phosphatase 77 U/L (38-126); Anion Gap 10 mmol/L; Blood Urea Nitrogen 11 mg/dL (9-20); Calcium 9.4 mg/dL (8.4-10.2); Carbon Dioxide 28 mmol/L (22-30); Chloride 101 mmol/L (98-107); Glucose 91 mg/dL (74-99); Magnesium 1.9 mg/dL (1.6-2.3); Non-African American GFR(CKD) >90 (>60 ml/min/1.73 sqM); Partial Thromboplastin Time 27.5 sec (22.0-30.0); Potassium 3.8 mmol/L (3.5-5.1); Prothrombin Time 11.1 sec (10.0-12.5); Sodium 139 mmol/L (137-145); Total Bilirubin 1.5 mg/dL (0.2-1.3)
[2023-12-30 11:27] LABS: Basophils # (A) 0.1 k/uL (0-0.2); Basophils % (A) 1 %; Eosinophils # (A) 0.5 k/uL (0-0.7); Eosinophils % (A) 5 %; HCT 38.7 % (39.0-53.0); HGB 12.7 gm/dL (13.0-17.5); Lymphocytes # (A) 1.2 k/uL (1.0-4.8); Lymphocytes % (A) 13 %; MCH 30.1 pg (25.0-35.0); MCHC 32.9 g/dL (31.0-37.0); MCV 91.5 fL (80.0-100.0); Mean Platelet Volume 8.4; Monocytes # (A) 0.5 k/uL (0-1.0); Monocytes % (A) 6 %; Neutrophils # (A) 7.3 k/uL (1.3-7.7); Neutrophils % (A) 75 %; Platelet Count 456 k/uL (150-450); RBC 4.23 m/uL (4.30-5.90); RDW 12.9 % (11.5-15.5); WBC 9.7 k/uL (3.8-10.6)
--- NOTE | 2023-12-30 11:31 | XR ---
EXAMINATION TYPE: XR chest 2V DATE OF EXAM: 12/30/2023 11:12 AM CLINICAL INDICATION:Male, 53 years old with history of Weakness; [facility] COMPARISON: Chest radiographs from 12/12/2023 TECHNIQUE: XR chest 2V Frontal and lateral views of the chest. FINDINGS: Lungs/Pleura: There is no evidence of pleural effusion, focal consolidation, or pneumothorax. Pulmonary vascularity: Unremarkable. Heart/mediastinum: Cardiomediastinal silhouette is unremarkable. Musculoskeletal: No acute osseous pathology. Atrial septal occlusion device present. IMPRESSION: No acute cardiopulmonary disease/process.
[2023-12-30 12:16] LABS: Appearance,Urine Clear (Clear); Bilirubin,Urine Negative (Negative); Blood,Urine Negative (Negative); Color,Urine Yellow; Glucose,Urine (UA) Negative (Negative); Ketones,Urine 2+ (Negative); Leukocyte Esterase,Urine Negative (Negative); Nitrite,Urine Negative (Negative); Protein,Urine Trace (Negative); Specific Gravity,Urine 1.026 (1.001-1.035)
--- NOTE | 2023-12-30 13:02 | CT ---
EXAMINATION TYPE: CT chest angio for PE CT DLP: 533 mGycm, Automated exposure control for dose reduction was used. DATE OF EXAM: 12/30/2023 12:48 PM COMPARISON: Same day chest radiograph CLINICAL INDICATION:Male, 53 years old with history of Elevated d-dimer, fatigue, KASSI; elevated d-dim er TECHNIQUE/CONTRAST: CTA scan of the thorax is performed with IV Contrast, patient injected with 100 mL of Isovue 370, MIP images are created and reviewed these are created on a separate workstation.. FINDINGS: Pulmonary Artery: Filling defect extending into the left upper lobe pulmonary arterial vasculature. T he pulmonary artery is of normal size. Lungs/Pleura: No evidence of focal consolidation, pleural effusion or pneumothorax. Mild atelectasis in the right middle lobe medially. Airway: Large airways are patent. Heart: Heart is within normal limits for size. Atrial septal defect occlusion device is present. Gregg nary artery atherosclerosis is present. Vasculature: No evidence of aortic aneurysm. Mediastinum: No gross evidence of adenopathy. Musculoskeletal: No acute osseous abnormalities Soft Tissues: Unremarkable. Lower neck: No significant findings. Upper Abdomen: No significant findings. IMPRESSION: 1. Left upper lobe pulmonary embolus No evidence of right heart strain. Findings communicated to Dr. Digna Powers, PAC on 12/30/2023 12:[address] Edson Ashford.
[2023-12-30] MEDS ORDERED: HEPARIN SODIUM 1,000 UN/ML (10ML VL) IV PRN (13:10)
[2023-12-30] MEDS: HEPARIN SODIUM 1,000 UN/ML (10ML VL) IV ONE (13:32)
[2023-12-30] MEDS: HEPARIN SOD,PORK IN 0.45% NACL 25,000 UNIT in 0.45% NACL 1 250ML.BAG IV SCH (13:34)
--- NOTE | 2023-12-30 14:05 | US ---
EXAMINATION TYPE: US venous doppler duplex LE DATE OF EXAM: 12/30/2023 1:54 PM COMPARISON: NONE CLINICAL INDICATION: Male, 53 years old with history of PEs, eval for DVT; PE SIDE PERFORMED: Bilateral TECHNIQUE: The lower extremity deep venous system is examined utilizing real time linear array sonog jelena with graded compression, doppler sonography and color-flow sonography. VESSELS IMAGED: Common Femoral Vein Deep Femoral Vein Greater Saphenous Vein * Femoral Vein Popliteal Vein Small Saphenous Vein * Proximal Calf Veins (* superficial vessels) Right Leg: Negative for DVT Left Leg: Negative for DVT IMPRESSION: Grayscale, color doppler, spectral doppler imaging performed of the deep veins of the lo wer extremities. There is normal flow, compressibility, vascular waveforms.
[2023-12-30] MEDS ORDERED: ONDANSETRON 4 MG/2 ML VIAL IVP PRN (14:09)
[2023-12-30] MEDS ORDERED: HYDROcodone/APAP 5-325MG 1 EACH TAB PO PRN (14:09)
[2023-12-30] MEDS ORDERED: ACETAMINOPHEN TAB 325 MG TAB PO PRN (14:09)
[2023-12-30] MEDS ORDERED: MORPHINE SULFATE 4 MG/ML SYRINGE IV PRN (14:09)
[2023-12-30] MEDS ORDERED: NALOXONE 0.4 MG/ML 1 ML VIAL IV PRN (14:09)
[2023-12-30] MEDS ORDERED: ACETAMINOPHEN TAB 500 MG TAB PO PRN (16:40)
--- NOTE | 2023-12-30 16:41 | P.CNPUL ---
History of Present Illness Consult date: 12/30/23 Requesting physician: Yevgeniy Cummins Reason for consult: pulmonary embolism Chief complaint: Fatigue, shortness of breath History of present illness: This is a 53-year-old male patient with a known history of coronary artery disease and previous stent placement, gout, hyperlipidemia. He had recently undergone successful percutaneous closure of a PFO on December 11, 2023. He had also been noted to have a positive stress test and was planning on having a heart catheterization with Dr. Alvarado on 01/07/2024. The last several days however the patient had been having increasing fatigue and some shortness of breath. He denied any chest pain. No cough or congestion. No hemoptysis. He presented here today for the same. White count 9.7. Hemoglobin 12.7. Platelets 456. D-dimer 1.50. Sodium 139. Potassium 3.9. Bicarb 28. BUN 11. Creatinine 0.79. Troponin negative x 1. Viral screen negative. Chest x-ray revealed no acute pulmonary process. CT angiogram revealed evidence of a left upper lobe pulmonary embolus. No evidence of heart strain. Doppler of the lower extremities revealed no DVT. He has been initiated on a heparin drip. He is seen today in consultation in the emergency department. Currently sitting up on a stretcher. Awake and alert in no acute distress. Maintaining good O2 saturations in the 90s on room air. Review of Systems REVIEW OF SYSTEMS: CONSTITUTIONAL: Positive for significant fatigue. Denies any recent significant weight loss or weight gain. EYES: Denies change in vision. EARS, NOSE, MOUTH, THROAT: Denies headaches, denies sore throat. CARDIOVASCULAR: Denies chest pain, palpitations or syncopal episodes. RESPIRATORY: Positive for shortness of breath, no cough, congestion or hemoptysis. GASTROINTESTINAL: Denies change in appetite, denies abdominal pain GENITOURINARY: Denies hematuria, denies infections. MUSKULOSKELETAL: Denies pain, denies swelling. INTEGUMENTARY: Denies rash, denies eczema. NEUROLOGICAL: Denies recent memory loss, no recent seizure activity. PSYCHIATRIC: Denies anxiety, denies depression. HEMATOLOGIC/LYMPHATIC: Denies anemia, denies enlarged lymph nodes. Past Medical History Past Medical History: Chest Pain / Angina, CVA/TIA, Hyperlipidemia, Hypertension, Myocardial Infarction ([place]), Skin Disorder Additional Past Medical History / Comment(s): Recent hospitilization @[facility] 09-29-23- pt states, "I was SOB, blurred vision, and no feeling to lt leg." "They said something about a TIA." Pt states he still has numbmess to lt leg. Is being worked up for RA through a Shank Breaker, hx of gout, arthritis both knees, Psoriasis. Last Myocardial Infarction Date:: 2017 History of Any Multi-Drug Resistant Organisms: None Reported Past Surgical History: Heart Catheterization With Stent, Orthopedic Surgery Additional Past Surgical History / Comment(s): left knee surgery, cyst removed on right wrist Past Anesthesia/Blood Transfusion Reactions: No Reported Reaction Additional Past Anesthesia/Blood Transfusion Reaction / Comment(s): No hx of blood transfusion. Date of Last Stent Placement:: JUN 2018 Past Psychological History: No Psychological Hx Reported Smoking Status: Current some day smoker Past Alcohol Use History: None Reported Past Drug Use History: Marijuana - Past Family History Father Family Medical History: Diabetes Mellitus Additional Family Medical History / Comment(s): CABG at age of 52. of massive [place] age 54. Mother Additional Family Medical History / Comment(s): from Cerebral aneurysm Brother(s) Family Medical History: Diabetes Mellitus Medications and Allergies Home Medications Medication Instructions Recorded Confirmed Type Aspirin 81 mg PO DAILY 09/16/19 12/30/23 History Acetaminophen Tab [Tylenol] 1,000 mg PO Q6HR PRN 11/12/23 12/30/23 History Atorvastatin Calcium [Lipitor] 40 mg PO HS 11/12/23 12/30/23 History Colchicine 0.6 mg PO BID 12/06/23 12/30/23 History Febuxostat 40 mg PO DAILY 12/06/23 12/30/23 History Clopidogrel [Plavix] 75 mg PO DAILY #90 tab 12/12/23 12/30/23 Rx Ergocalciferol (Vitamin D2) 1,250 mcg PO FR 12/30/23 12/30/23 History [Drisdol (50,000 Iu)] Allergies Allergy/AdvReac Type Severity Reaction Status Date / Time Penicillins Allergy Severe Anaphylaxis Verified 12/30/23 11:25 Physical Exam Vitals: Vital Signs Temp Pulse Resp BP Pulse Ox 12/30/23 15:23 75 20 131/83 97 12/30/23 12:41 86 22 122/81 98 12/30/23 09:35 98.2 F 91 20 146/85 100 Intake and Output 12/30/23 12/30/23 12/30/23 06:59 14:59 22:59 Other: Weight 86.183 kg GENERAL EXAM: Alert, pleasant 53-year-old male, on room air, comfortable in no apparent distress. HEAD: Normocephalic. EYES: Normal reaction of pupils, equal size. NOSE: Clear with pink turbinates. THROAT: Poor dentition, no erythema or exudates. NECK: No masses, no JVD. CHEST: No chest wall deformity. LUNGS: Equal air entry with no crackles, wheeze, rhonchi or dullness. CVS: S1 and S2 normal with no audible murmur, regular rhythm. ABDOMEN: No hepatosplenomegaly, normal bowel sounds, no guarding or rigidity. SPINE: No scoliosis or deformity SKIN: Noted psoriasis CENTRAL NERVOUS SYSTEM: No focal deficits, tone is normal in all 4 extremities. EXTREMITIES: There is no peripheral edema. No clubbing, no cyanosis. Peripheral pulses are intact. Results - Laboratory Findings CBC and BMP: 12/30/23 10:32 12/30/23 10:32 PT/INR, D-dimer PT 11.1 sec (10.0-12.5) 12/30/23 10:32 INR 1.0 (<1.2) 12/30/23 10:32 D-Dimer 1.50 mg/L FEU (<0.60) H 12/30/23 10:32 Abnormal lab findings: Abnormal Labs 12/30/23 12/30/23 12/30/23 10:32 10:32 10:32 RBC 4.23 L Hgb 12.7 L Hct 38.7 L Plt Count 456 H D-Dimer 1.50 H Total Bilirubin 1.5 H Urine Protein Urine Ketones 12/30/23 11:58 RBC Hgb Hct Plt Count D-Dimer Total Bilirubin Urine Protein Trace H Urine Ketones 2+ H - Diagnostic Findings Chest x-ray: image reviewed CT scan - chest: image reviewed Assessment and Plan Assessment: Generalized fatigue and weakness with intermittent shortness of breath secondary to a left upper lobe pulmonary emboli Recent PFO closure on 12/11/2023 Recent positive stress test with plans for cardiac catheterization 01/07/2024 History of coronary artery disease with previous stent placement History of gout History of psoriasis Hyperlipidemia Former smoker Plan: The patient was seen and evaluated Chest x-ray, CT angiogram, labs and medications reviewed Continue on a heparin drip for now Consult cardiology Currently stable and on room air We will continue to follow and make further recommendations based on his clinical status I have personally seen and examined the patient, performed the documentation and the assessment and plan as written. Number of minutes spent on the visit: 20.
--- NOTE | 2023-12-30 17:04 | P.HPIM ---
History of Present Illness H&P Date: 12/30/23 Patient is a 53-year-old male with history of PFO underwent PFO closure on 12/11/2023, gout, dyslipidemia presenting with palpitations and chest pain. He is also complaining of fatigue. He claims that most of his symptoms started about 1 week ago. His chest pain was mostly left-sided. He denies any recent travel history, sick contacts. He denies any fevers, chills, nausea, vomiting, urinary or bowel complaints. He denies any personal history of blood clots. He claims that his father might of had blood clots in the past. In the ED, temperature was 98.2, pulse 91, respiratory 20, blood pressure 146/85, saturating at 100% on room air. WBC 9.7, hemoglobin 12.7, platelet 456, D-dimer 1.5, creatinine 0.79, total bilirubin 1.5, urinalysis negative for nitrites and leukocyte esterase, respiratory viral panel negative. Chest x-ray independently interpreted, shows no significant opacities. EKG independently interpreted, shows sinus rhythm. Chest CTA shows left upper lobe pulmonary emboli, no evidence of right heart strain. Lower extremity Dopplers negative for DVT. Patient started on heparin drip, admitted for pulmonary embolism. Pulmonology consulted. Pertinent positives and negatives as discussed in HPI, a complete review of systems was performed and all other systems are negative. Patient seen and examined at bedside. Vital signs reviewed General: nontoxic, no distress, appears at stated age Derm: warm, dry Head: atraumatic, normocephalic, symmetric Eyes: EOMI, no lid lag, anicteric sclera, pupils equal round reactive to light ENT: Nose and ears atraumatic Neck: No thyromegaly, supple Mouth: no lip lesion, mucus membranes moist Cardiovascular: S1S2 reg, no murmur, no edema Lungs: clear to auscultation bilateral, no rhonchi, no rales, no wheeze, no a ccessory muscle use Abdominal: soft, nontender to palpation, no guarding, no appreciable organomega ly Ext: no gross muscle atrophy, muscle strength muscle strength 5 out of 5 in all 4 extremities, no contractures Neuro: CN II-XII grossly intact Psych: Alert, oriented, appropriate affect Assessment/Plan: Active: Acute nonmassive provoked pulmonary embolism Recent PFO closure Thrombocytosis, likely reactive Mild normocytic anemia Elevated D-dimer Hyperbilirubinemia -Continue heparin drip, monitor APTT, monitor for bleeding -Repeat CBC tomorrow -Pulmonology consulted, pending recommendations -No right upper quadrant. -Repeat CMP tomorrow -Tylenol as needed, oral [place] as needed, IV morphine as needed for pain, monitor for sedation -Monitor on telemetry Chronic: History of gout History of CAD with prior stent History of TIA Dyslipidemia The patient is admitted with an anticipated less than 2 midnight stay as sideration status for evaluation of pulmonary embolism. Surrogate decision-maker: Spouse CODE STATUS: Full code DVT prophylaxis: Heparin drip Anticipated discharge date: Pending clinical course Anticipated discharge place: Pending clinical course A total of 55 minutes was spent on the care of this complex patient more than 50% of the time was spent in counseling and care coordination. Past Medical History Past Medical History: Chest Pain / Angina, CVA/TIA, Hyperlipidemia, Hypertension, Myocardial Infarction ([place]), Skin Disorder Additional Past Medical History / Comment(s): Recent hospitilization @[facility] 09-29-23- pt states, "I was SOB, blurred vision, and no feeling to lt leg." "They said something about a TIA." Pt states he still has numbmess to lt leg. 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 Last Myocardial Infarction Date:: 2017 History of Any Multi-Drug Resistant Organisms: None Reported Past Surgical History: Heart Catheterization With Stent, Orthopedic Surgery Additional Past Surgical History / Comment(s): left knee surgery, cyst removed on right wrist Past Anesthesia/Blood Transfusion Reactions: No Reported Reaction Additional Past Anesthesia/Blood Transfusion Reaction / Comment(s): No hx of blood transfusion. Date of Last Stent Placement:: JUN 2018 Past Psychological History: No Psychological Hx Reported Smoking Status: Current some day smoker Past Alcohol Use History: None Reported Past Drug Use History: Marijuana - Past Family History Father Family Medical History: Diabetes Mellitus Additional Family Medical History / Comment(s): CABG at age of 52. of massive [place] age 54. Mother Additional Family Medical History / Comment(s): from Cerebral aneurysm Brother(s) Family Medical History: Diabetes Mellitus Medications and Allergies Home Medications Medication Instructions Recorded Confirmed Type Aspirin 81 mg PO DAILY 09/16/19 12/30/23 History Acetaminophen Tab [Tylenol] 1,000 mg PO Q6HR PRN 11/12/23 12/30/23 History Atorvastatin Calcium [Lipitor] 40 mg PO HS 11/12/23 12/30/23 History Colchicine 0.6 mg PO BID 12/06/23 12/30/23 History Febuxostat 40 mg PO DAILY 12/06/23 12/30/23 History Clopidogrel [Plavix] 75 mg PO DAILY #90 tab 12/12/23 12/30/23 Rx Ergocalciferol (Vitamin D2) 1,250 mcg PO FR 12/30/23 12/30/23 History [Drisdol (50,000 Iu)] Allergies Allergy/AdvReac Type Severity Reaction Status Date / Time Penicillins Allergy Severe Anaphylaxis Verified 12/30/23 11:25 Physical Exam Vitals: Vital Signs Temp Pulse Resp BP Pulse Ox 12/30/23 12:41 86 22 122/81 98 12/30/23 09:35 98.2 F 91 20 146/85 100 Intake and Output 12/30/23 12/30/23 12/30/23 06:59 14:59 22:59 Other: Weight 86.183 kg Results CBC & Chem 7: 12/30/23 10:32 12/30/23 10:32 Labs: Abnormal Lab Results - Last 24 Hours (Table) 12/30/23 12/30/23 12/30/23 Range/Units 10:32 10:32 10:32 RBC 4.23 L (4.30-5.90) m/uL Hgb 12.7 L (13.0-17.5) gm/dL Hct 38.7 L (39.0-53.0) % Plt Count 456 H (150-450) k/uL D-Dimer 1.50 H (<0.60) mg/L FEU Total Bilirubin 1.5 H (0.2-1.3) mg/dL Urine Protein (Negative) Urine Ketones (Negative) 12/30/23 Range/Units 11:58 RBC (4.30-5.90) m/uL Hgb (13.0-17.5) gm/dL Hct (39.0-53.0) % Plt Count (150-450) k/uL D-Dimer (<0.60) mg/L FEU Total Bilirubin (0.2-1.3) mg/dL Urine Protein Trace H (Negative) Urine Ketones 2+ H (Negative)
[2023-12-30] MEDS: ATORVASTATIN 40 MG TAB PO SCH (21:16)
[2023-12-30] MEDS: COLCHICINE 0.6 MG EACH PO SCH (21:17)
[2023-12-31] MEDS ORDERED: HEPARIN SODIUM,PORCINE 10,000 UNIT in SODIUM CHLORIDE 0.9% 1,000 ML IRRIGATION PRN (07:00)
[2023-12-31] MEDS ORDERED: HEPARIN SODIUM,PORCINE (1 ML) 2,500 UNIT in SODIUM CHLORIDE 0.9% 250 ML IRRIGATION PRN (07:00)
--- NOTE | 2023-12-31 08:05 | P.CRDCN ---
History of Present Illness Consult date: 12/31/23 Chief complaint: Chest pain History of present illness: This is a 53-year-old gentleman who is known to our service from before with a past medical history significant for coronary artery disease with prior revascularization with unknown details at this point as well as hypertension and dyslipidemia and recent diagnosis of stroke and patent foramen ovale status post PFO closure presented to the emergency department complaining of generalized weakness and fatigue and shortness of breath and the chest discomfort. He underwent further investigation including D-dimer came in to be abnormal and subsequently CTA of the chest showed small pulmonary embolism involving the left upper lobe of the lung. Subsequently he was started on oral anticoagulation using heparin. He is feeling somewhat better. But he continues to have some shortness of breath and chest discomfort and currently his chest pain-free. No dizziness or lightheadedness and no feeling of heart racing or fluttering and no presyncope or syncope and no lower extremities edema. The EKG shows sinus mechanism with no ST or T wave abnormalities. Cardiac enzymes came in to be unremarkable. He was seen in the office recently and he was scheduled to undergo a heart catheterization as an outpatient after abnormal myocardial perfusion imaging stress test and that was scheduled for next week. The examination is stable for vital signs with regular rate and rhythm and soft systolic murmur and clear breathing sounds bilaterally and no edema was noted in the lower extremities Assessment Shortness of breath and chest discomfort Generalized weakness and fatigue Recent diagnosis of pulmonary embolism PFO status post percutaneous closure Coronary artery disease status post revascularization Abnormal stress test Multiple comorbid conditions Plan He was started on heparin for pulmonary embolism Acute coronary event was ruled out Consider proceeding with coronary angiogram in the next 12 to 24 hours Follow-up with the patient Past Medical History Past Medical History: Chest Pain / Angina, CVA/TIA, Hyperlipidemia, Hypertension, Myocardial Infarction ([place]), Skin Disorder Additional Past Medical History / Comment(s): Recent hospitilization @[facility] 09-29-23- pt states, "I was SOB, blurred vision, and no feeling to lt leg." "They said something about a TIA." Pt states he still has numbmess to lt leg. 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 Last Myocardial Infarction Date:: 2017 History of Any Multi-Drug Resistant Organisms: None Reported Past Surgical History: Heart Catheterization With Stent, Orthopedic Surgery Additional Past Surgical History / Comment(s): left knee surgery, cyst removed on right wrist Past Anesthesia/Blood Transfusion Reactions: No Reported Reaction Additional Past Anesthesia/Blood Transfusion Reaction / Comment(s): No hx of blood transfusion. Date of Last Stent Placement:: JUN 2018 Past Psychological History: No Psychological Hx Reported Smoking Status: Current some day smoker Past Alcohol Use History: None Reported Past Drug Use History: Marijuana - Past Family History Father Family Medical History: Diabetes Mellitus Additional Family Medical History / Comment(s): CABG at age of 52. of massive [place] age 54. Mother Additional Family Medical History / Comment(s): from Cerebral aneurysm Brother(s) Family Medical History: Diabetes Mellitus Medications and Allergies Home Medications Medication Instructions Recorded Confirmed Type Aspirin 81 mg PO DAILY 09/16/19 12/30/23 History Acetaminophen Tab [Tylenol] 1,000 mg PO Q6HR PRN 11/12/23 12/30/23 History Atorvastatin Calcium [Lipitor] 40 mg PO HS 11/12/23 12/30/23 History Colchicine 0.6 mg PO BID 12/06/23 12/30/23 History Febuxostat 40 mg PO DAILY 12/06/23 12/30/23 History Clopidogrel [Plavix] 75 mg PO DAILY #90 tab 12/12/23 12/30/23 Rx Ergocalciferol (Vitamin D2) 1,250 mcg PO FR 12/30/23 12/30/23 History [Drisdol (50,000 Iu)] Allergies Allergy/AdvReac Type Severity Reaction Status Date / Time Penicillins Allergy Severe Anaphylaxis Verified 12/30/23 11:25 Physical Exam Vitals: Vital Signs Temp Pulse Resp BP Pulse Ox 12/31/23 03:57 87 20 137/84 96 12/30/23 21:17 86 20 96 12/30/23 18:43 98.2 F 90 20 112/77 95 12/30/23 15:23 75 20 131/83 97 12/30/23 12:41 86 22 122/81 98 12/30/23 09:35 98.2 F 91 20 146/85 100 Intake and Output 12/30/23 12/31/23 12/31/23 22:59 06:59 14:59 Intake Total 250 Balance 250 Intake: Intake, IV Titration 250 Amount Heparin Sod,Pork in 0.45% 250 NaCl 25,000 unit In 0.45 % NaCl 1 250ml.bag @ 18 UNITS/KG/HR 15.513 mls/hr IV .Q16H7M [facility] Rx#: [id number] Results 12/30/23 10:32 12/30/23 10:32 Cardiac Enzymes 12/30/23 12/30/23 Range/Units 10:32 10:32 AST 38 (17-59) U/L Troponin I <0.012 (0.000-0.034) ng/mL Coagulation 12/30/23 12/30/23 Range/Units 10:32 19:28 PT 11.1 (10.0-12.5) sec APTT 27.5 69.0 H (22.0-30.0) sec CBC 12/30/23 Range/Units 10:32 WBC 9.7 (3.8-10.6) k/uL RBC 4.23 L (4.30-5.90) m/uL Hgb 12.7 L (13.0-17.5) gm/dL Hct 38.7 L (39.0-53.0) % Plt Count 456 H (150-450) k/uL Comprehensive Metabolic Panel 12/30/23 Range/Units 10:32 Sodium 139 (137-145) mmol/L Potassium 3.8 (3.5-5.1) mmol/L Chloride 101 (98-107) mmol/L Carbon Dioxide 28 (22-30) mmol/L BUN 11 (9-20) mg/dL Creatinine 0.79 (0.66-1.25) mg/dL Glucose 91 (74-99) mg/dL Calcium 9.4 (8.4-10.2) mg/dL AST 38 (17-59) U/L ALT 14 (4-49) U/L Alkaline Phosphatase 77 (38-126) U/L Total Protein 7.0 (6.3-8.2) g/dL Albumin 3.9 (3.5-5.0) g/dL Current Medications Generic Name Dose Route Start Last Admin Trade Name Freq PRN Reason Stop Dose Admin Acetaminophen 650 mg 12/30/23 14:09 Acetaminophen Tab 325 Mg Tab PO Q6HR PRN Mild Pain or Fever > 100.5 Acetaminophen 1,000 mg 12/30/23 16:40 Acetaminophen Tab 500 Mg Tab PO Q6HR PRN Pain Hydrocodone Bitart/Acetaminophen 1 each 12/30/23 14:09 Hydrocodone/Apap 5-325mg 1 Each Tab PO Q4HR PRN Moderate Pain (Scale 4 to 6) Allopurinol 200 mg 12/31/23 09:00 Allopurinol 100 Mg Tab PO DAILY [facility] Aspirin 81 mg 12/31/23 09:00 Aspirin 81 Mg PO DAILY [facility] Atorvastatin Calcium 40 mg 12/30/23 21:00 12/30/23 21:16 Atorvastatin 40 Mg Tab PO 40 mg HS [facility] Administration Clopidogrel Bisulfate 75 mg 12/31/23 09:00 Clopidogrel 75 Mg Tab PO DAILY [facility] Colchicine 0.6 mg 12/30/23 21:00 12/30/23 21:17 Colchicine 0.6 Mg Each PO Not Given BID [facility] Ergocalciferol 1,250 mcg 01/03/24 09:00 Ergocalciferol 1,250 Mcg (50,000 Iu) Capsule PO FR [facility] Heparin Sodium (Porcine) 0 unit 12/30/23 13:10 Heparin Sodium 1,000 Un/Ml (10ml Vl) IV PER PROTOCOL PRN Low PTT Protocol Heparin Sodium/Sodium Chloride 250 mls @ 15.513 mls/hr 12/30/23 13:15 12/31/23 06:02 25,000 unit/ Sodium Chloride IV 18 units/kg/hr .Q16H7M DASHAWN 15.513 mls/hr Administration Protocol 18 UNITS/KG/HR Morphine Sulfate 4 mg 12/30/23 14:09 Morphine Sulfate 4 Mg/Ml Syringe IV Q4HR PRN Severe Pain (Scale 7 to 10) Naloxone HCl 0.2 mg 12/30/23 14:09 Naloxone 0.4 Mg/Ml 1 Ml Vial IV Q2M PRN Opioid Reversal Ondansetron HCl 4 mg 12/30/23 14:09 Ondansetron 4 Mg/2 Ml Vial IVP Q8HR PRN Nausea And Vomiting Intake and Output 12/30/23 12/31/23 12/31/23 22:59 06:59 14:59 Intake Total 250 Balance 250 Intake: Intake, IV Titration 250 Amount Heparin Sod,Pork in 0.45% 250 NaCl 25,000 unit In 0.45 % NaCl 1 250ml.bag @ 18 UNITS/KG/HR 15.513 mls/hr IV .Q16H7M [facility]#: [id number] 12/30/23 10:32 12/30/23 10:32
[2023-12-31] MEDS: ASPIRIN 81 MG PO SCH (08:34)
[2023-12-31] MEDS: CLOPIDOGREL 75 MG TAB PO SCH (08:34)
[2023-12-31] MEDS: allopurinoL 100 MG TAB PO SCH (08:34)
[2023-12-31 08:45] LABS: Basophils # (A) 0.06 X 10*3/uL (0.00-0.10); Basophils % (A) 0.6 %; Eosinophils % (A) 6.2 %; HCT 32.9 % (39.6-50.0); HGB 10.8 g/dL (13.0-17.0); Lymphocytes # (A) 1.72 X 10*3/uL (0.90-5.00); Lymphocytes % (A) 17.8 %; MCH 29.8 pg (27.0-32.0); MCHC 32.8 g/dL (32.0-37.0); MCV 90.6 FL (80.0-97.0); Mean Platelet Volume 9.5 FL (9.5-12.2); Monocytes # (A) 0.78 X 10*3/uL (0.20-1.00); Monocytes % (A) 8.1 %; NRBC Per 100 WBC 0 X 10*3/uL (0.00-0.01); Neutrophils # (A) 6.44 X 10*3/uL (1.80-7.70); Neutrophils % (A) 66.9 %; Platelet Count 508 X 10*3/uL (140-440); RBC 3.63 X 10*6/uL (4.40-5.60); RDW 12.5 % (11.5-14.5); WBC 9.64 X 10*3/uL (4.50-10.00)
[2023-12-31 09:25] LABS: BUN/Creat Ratio 10.67 Ratio (12.00-20.00); Blood Urea Nitrogen 9.6 mg/dL (9.0-27.0); Carbon Dioxide 23.5 mmol/L (21.6-31.8); Chloride 104 mmol/L (96-109); Glucose 99 mg/dL (70-110); Potassium 3.5 mmol/L (3.5-5.5); Sodium 141 mmol/L (135-145)
[2023-12-31 09:26] LABS: ALT 15 U/L (10-49); AST 42 U/L (14-35); Albumin 3.7 g/dL (3.8-4.9); Albumin/Globulin Ratio 1.54 Ratio (1.60-3.17); Alkaline Phosphatase 63 U/L (41-126); Globulin 2.4 g/dL (1.6-3.3); Total Bilirubin 0.6 mg/dL (0.3-1.2); Total Protein 6.1 g/dL (6.2-8.2)
[2023-12-31] MEDS ORDERED: ALPRAZolam 0.25 MG TAB PO PRN (11:56)
[2023-12-31] MEDS ORDERED: ALPRAZolam 0.5 MG TAB PO PRN (11:56)
[2023-12-31] MEDS ORDERED: ASPIRIN 325 MG TAB PO STA (11:56)
[2023-12-31] MEDS ORDERED: NITROGLYCERIN SL TABS 0.4 MG TAB SUBLINGUAL PRN (11:56)
--- NOTE | 2023-12-31 12:29 | P.PN ---
Subjective Progress Note Date: 12/31/23 Principal diagnosis: Acute pulmonary embolism This is a 53-year-old male patient with a known history of coronary artery disease and previous stent placement, gout, hyperlipidemia. He had recently undergone successful percutaneous closure of a PFO on December 11, 2023. He had al so been noted to have a positive stress test and was planning on having a heart catheterization with Dr. Alvarado on 01/07/2024. The last several days however the patient had been having increasing fatigue and some shortness of breath. He denied any chest pain. No cough or congestion. No hemoptysis. He presented here today for the same. White count 9.7. Hemoglobin 12.7. Platelets 456. D-dimer 1.50. Sodium 139. Potassium 3.9. Bicarb 28. BUN 11. Creatinine 0.79. Troponin negative x 1. Viral screen negative. Chest x-ray revealed no acute pulmonary process. CT angiogram revealed evidence of a left upper lobe pulmonary embolus. No evidence of heart strain. Doppler of the lower ext remities revealed no DVT. He has been initiated on a heparin drip. He is seen today in consultation in the emergency department. Currently sitting up on a stretcher. Awake and alert in no acute distress. Maintaining good O2 saturations in the 90s on room air. Patient was reevaluated today on 12/31/2023, patient is doing well, remains on heparin, he was seen earlier by cardiology, and he was advised to have cardiac catheterization for his abnormal EKG and apparently he had abnormal stress test previously. Patient will likely have his cardiac catheterization possibly today or tomorrow. In the meantime he is on heparin, no cough no wheezing no shortness of breath and no complications related to heparin treatment PTT is therapeutic at 62.2 CBC is normal platelets are 508 basic metabolic profile is normal and renal profile is normal. Objective - Vital Signs Vital signs: Vital Signs Temp 97.8 F 12/31/23 08:00 Pulse 61 12/31/23 08:00 Resp 16 12/31/23 08:00 BP 118/72 12/31/23 08:00 Pulse Ox 96 12/31/23 03:57 FiO2 Intake & Output 12/30/23 12/31/23 12/31/23 18:59 06:59 18:59 Intake Total 250 Balance 250 Weight 86.183 kg Intake: Intake, IV Titration 250 Amount Heparin Sod,Pork in 0.45% 250 NaCl 25,000 unit In 0.45 % NaCl 1 250ml.bag @ 18 UNITS/KG/HR 15.513 mls/hr IV .Q16H7M [facility] Rx#: [id number] - Exam GENERAL EXAM: Reveals a 53-year-old white male in no distress, extremely pleasant. HEAD: Normocephalic. EYES: Normal reaction of pupils, equal size. NOSE: Clear with pink turbinates. THROAT: Normal mucous membranes. NECK: No masses, no JVD. CHEST: No chest wall deformity. LUNGS: Clear bilaterally no rhonchi no wheezes CVS: S1 and S2 normal with no audible murmur, regular rhythm. ABDOMEN: Soft nontender no megaly no rebound no guarding SKIN: Noted psoriasis CENTRAL NERVOUS SYSTEM: Alert oriented x 3 no gross focal deficit EXTREMITIES: Clubbing edema or sinus - Labs CBC & Chem 7: 12/31/23 06:14 12/31/23 06:14 Labs: Abnormal Lab Results - Last 24 Hours (Table) 12/30/23 12/30/23 12/31/23 Range/Units 11:58 19:28 06:14 RBC 3.63 L (4.40-5.60) X 10*6/uL Hgb 10.8 L (13.0-17.0) g/dL Hct 32.9 L (39.6-50.0) % Plt Count 508 H (140-440) X 10*3/uL Eosinophils # 0.60 H (0.04-0.35) X 10*3/uL APTT 69.0 H (22.0-30.0) sec Anion Gap (4.00-12.00) mmol/L BUN/Creatinine Ratio (12.00-20.00) Ratio AST (14-35) U/L Total Protein (6.2-8.2) g/dL Albumin (3.8-4.9) g/dL Albumin/Globulin Ratio (1.60-3.17) Ratio Urine Protein Trace H (Negative) Urine Ketones 2+ H (Negative) 12/31/23 12/31/23 Range/Units 06:14 08:50 RBC (4.40-5.60) X 10*6/uL Hgb (13.0-17.0) g/dL Hct (39.6-50.0) % Plt Count (140-440) X 10*3/uL Eosinophils # (0.04-0.35) X 10*3/uL APTT 62.2 H (22.0-30.0) sec Anion Gap 13.50 H (4.00-12.00) mmol/L BUN/Creatinine Ratio 10.67 L (12.00-20.00) Ratio AST 42 H (14-35) U/L Total Protein 6.1 L (6.2-8.2) g/dL Albumin 3.7 L (3.8-4.9) g/dL Albumin/Globulin Ratio 1.54 L (1.60-3.17) Ratio Urine Protein (Negative) Urine Ketones (Negative) Assessment and Plan Assessment: Impression: Acute pulmonary embolism Recent closure of PFO on 12/11/2023 History of coronary arteriosclerosis and previous stent placement Recently abnormal cardiac stress test./Positive stress test. History of psoriasis Dyslipidemia Ex-smoker Recommendation: Patient was seen in the ER, still waiting for a bed, in the meantime we will continue present treatment plan. Continue heparin Cardiology is considering cardiac catheterization possibly today Will eventually transition to Eliquis in the next 24 hours. Will continue to follow. Time with Patient: Less than 30
--- NOTE | 2023-12-31 12:55 | P.PN ---
Subjective Progress Note Date: 12/31/23 Patient is a 53-year-old male with history of PFO underwent PFO closure on 12/11/2023, gout, dyslipidemia presenting with palpitations and chest pain. He is also complaining of fatigue. He claims that most of his symptoms started about 1 week ago. His chest pain was mostly left-sided. He denies any recent travel history, sick contacts. He denies any fevers, chills, nausea, vomiting, urinary or bowel complaints. He denies any personal history of blood clots. He claims that his father might of had blood clots in the past. In the ED, temperature was 98.2, pulse 91, respiratory 20, blood pressure 146/85, saturating at 100% on room air. WBC 9.7, hemoglobin 12.7, platelet 456, D-dimer 1.5, creatinine 0.79, total bilirubin 1.5, urinalysis negative for nitrites and leukocyte esterase, respiratory viral panel negative. Chest x-ray independently interpreted, shows no significant opacities. EKG independently interpreted, shows sinus rhythm. Chest CTA shows left upper lobe pulmonary emboli, no evidence of right heart strain. Lower extremity Dopplers negative for DVT. Patient started on heparin drip, admitted for pulmonary embolism. Pulmonology consulted. Cardiology consulted for chest pain, recommends cardiac cath likely tomorrow. 12/30 Patient was seen and examined. He reports no complaints. No SOB or chest pain. Maintained on heparin drip. Plans for cardiac cath likely tomorrow.CBC Hg 10.8, Hct 32.9, Plt 508. APTT 62.2. CMP AG 13.5, BUN/Cr 10.67, AST 42, total protein 6.1, alb 3.7. General: non toxic, no distress, appears at stated age Derm: warm, dry Head: atraumatic, normocephalic, symmetric Eyes: EOMI, no lid lag, anicteric sclera Mouth: no lip lesion, mucus membranes moist Cardiovascular: S1S2 reg, no murmur Lungs: CTA bilateral, no rhonchi, no rales , no accessory muscle use Ext: no gross muscle atrophy, no edema, no contractures Neuro: no focal neuro deficits Psych: Alert, oriented, appropriate affect Acute nonmassive provoked pulmonary embolism: Continue heparin drip. Daily coag panel while on heparin. Echo pending. Telemetry monitoring. Pulmonary on board. Recent PFO closure Thrombocytosis: Likely due to anemia. Monitor. Mild normocytic anemia: No signs of active bleeding. Monitor. History of gout: Allopurinol 200 mg PO QD. History of CAD with prior stent: ASA 81 mg PO QD. Lipitor 40 mg PO QHS. Plavix 75 mg PO QD. Plans for cardiac cath. History of TIA: ASA, Lipitor as above. Dyslipidemia: Lipitor as above. CODE STATUS: FULL CODE DVT Prophylaxis: Heparin drip GI Prophylaxis: Designated medical POA if patient is not able to make medical decisions for themselves: I have reviewed the following consultant nurse notes: Pulmonary, Cardiology. I have reviewed the results of the following tests: CBC, CMP, Coag panel I have ordered the following tests: Echo pending. I have discussed the care of this patient with the following independent historian: DONI I have independently interpreted the following test below: I have discussed the management of this patient with the following physician: Objective - Vital Signs Vital signs: Vital Signs Temp 97.8 F 12/31/23 08:00 Pulse 61 12/31/23 08:00 Resp 16 12/31/23 08:00 BP 118/72 12/31/23 08:00 Pulse Ox 96 12/31/23 03:57 FiO2 Intake & Output 12/30/23 12/31/23 12/31/23 18:59 06:59 18:59 Intake Total 250 Balance 250 Weight 86.183 kg Intake: Intake, IV Titration 250 Amount Heparin Sod,Pork in 0.45% 250 NaCl 25,000 unit In 0.45 % NaCl 1 250ml.bag @ 18 UNITS/KG/HR 15.513 mls/hr IV .Q16H7M [facility] Rx#: [id number] - Labs CBC & Chem 7: 12/31/23 06:14 12/31/23 06:14 Labs: Abnormal Lab Results - Last 24 Hours (Table) 12/30/23 12/30/23 12/31/23 Range/Units 11:58 19:28 06:14 RBC 3.63 L (4.40-5.60) X 10*6/uL Hgb 10.8 L (13.0-17.0) g/dL Hct 32.9 L (39.6-50.0) % Plt Count 508 H (140-440) X 10*3/uL Eosinophils # 0.60 H (0.04-0.35) X 10*3/uL APTT 69.0 H (22.0-30.0) sec Anion Gap (4.00-12.00) mmol/L BUN/Creatinine Ratio (12.00-20.00) Ratio AST (14-35) U/L Total Protein (6.2-8.2) g/dL Albumin (3.8-4.9) g/dL Albumin/Globulin Ratio (1.60-3.17) Ratio Urine Protein Trace H (Negative) Urine Ketones 2+ H (Negative) 12/31/23 12/31/23 Range/Units 06:14 08:50 RBC (4.40-5.60) X 10*6/uL Hgb (13.0-17.0) g/dL Hct (39.6-50.0) % Plt Count (140-440) X 10*3/uL Eosinophils # (0.04-0.35) X 10*3/uL APTT 62.2 H (22.0-30.0) sec Anion Gap 13.50 H (4.00-12.00) mmol/L BUN/Creatinine Ratio 10.67 L (12.00-20.00) Ratio AST 42 H (14-35) U/L Total Protein 6.1 L (6.2-8.2) g/dL Albumin 3.7 L (3.8-4.9) g/dL Albumin/Globulin Ratio 1.54 L (1.60-3.17) Ratio Urine Protein (Negative) Urine Ketones (Negative)
[2023-12-31 23:39] LABS: Glucose,Whole Blood 109 mg/dL (70-110)
--- NOTE | 2024-01-01 07:12 | CA ---
Transthoracic Echo Report Name: Will Stewart Age: 53 Gender: M : 1970 Exam Date: 12/31/2023 08:18 Exam Location: [place] [facility] Ht (in): 68 Wt (lb): 190 Ordering Physician: Chuy Sanchez MD ([id number]) Attending/Referring Phys: Biostatistics Manager Polly Tan RDCS Procedure CPT: Indications: CP Cardiac Hx: Technical Quality: Fair Contrast 1: Total Dose (mL): Contrast 2: Total Dose (mL): MEASUREMENTS (Male / Female) Normal Values 2D ECHO LV Diastolic Diameter PLAX 4.8 cm 4.2 - 5.9 / 3.9 - 5.3 cm LV Systolic Diameter PLAX 3.0 cm IVS Diastolic Thickness 1.0 cm 0.6 - 1.0 / 0.6 - 0.9 cm LVPW Diastolic Thickness 1.0 cm 0.6 - 1.0 / 0.6 - 0.9 cm LV Relative Wall Thickness 0.4 RV Internal Dim ED PLAX 3.1 cm DOPPLER PV Peak Velocity 143.9 cm/s PV Peak Gradient 8.3 mmHg FINDINGS Left Ventricle Left ventricular ejection fraction is estimated at 60-65 %. Left ventricular cavity size normal. Left ventricular wall thickness normal. No obvious regional wall motion abnormalities. Right Ventricle Normal right ventricular size and function. Unable to estimate the right ventricular systolic pressure. Right Atrium Right atrium not well visualized. Left Atrium Left atrium not assessed. PFO/ASD closure device noted, no residual shunt. Mitral Valve Structurally normal mitral valve. Aortic Valve Trileaflet aortic valve. Tricuspid Valve Structurally normal tricuspid valve. No tricuspid stenosis. Trace tricuspid regurgitation. Pulmonic Valve Pulmonic valve not well visualized. No pulmonic stenosis. No pulmonic regurgitation. Pericardium No pericardial effusion. Aorta Aortic root and proximal ascending aorta not well visualized. CONCLUSIONS Normal LV systolic function. The ejection fraction is 60-65% Normal right ventricular dimension and systolic function Stable atrial septal device with no residual shunt No pericardial effusion Previewed by: Dr. Chuy Sanchez MD (Electronically Signed) Final Date: 01 Jan 2024 07:11
[2024-01-01] MEDS: ASPIRIN 81 MG PO STA (08:35)
[2024-01-01] MEDS: ATORVASTATIN 80 MG TAB PO STA ×2 (08:36→08:45)
[2024-01-01] MEDS: SODIUM CHLORIDE 0.9% 1,000 ML in EMPTY BAG 1 BAG IV SCH (08:37)
[2024-01-01] MEDS: ASPIRIN 325 MG TAB PO STA (08:44)
[2024-01-01] MEDS ORDERED: VERAPAMIL 2.5 MG/ML 2 ML AMP ONE (09:47)
[2024-01-01] MEDS ORDERED: LIDOCAINE 1% INJ 10MG/ML (20 ML MDV) ONE (09:47)
[2024-01-01] MEDS ORDERED: fentaNYL (PF) 50 MCG/ML 2 ML AMP ONE (09:48)
[2024-01-01] MEDS ORDERED: HEPARIN SODIUM 1,000 UN/ML (10ML VL) ONE (09:48)
[2024-01-01] MEDS: SODIUM CHLORIDE 0.9% 1,000 ML IV ONE (10:06)
--- NOTE | 2024-01-01 10:17 | P.PN ---
Subjective Progress Note Date: 01/01/24 Patient is a 53-year-old male with history of PFO underwent PFO closure on 12/11/2023, gout, dyslipidemia presenting with palpitations and chest pain. He is also complaining of fatigue. He claims that most of his symptoms started about 1 week ago. His chest pain was mostly left-sided. He denies any recent travel history, sick contacts. He denies any fevers, chills, nausea, vomiting, urinary or bowel complaints. He denies any personal history of blood clots. He claims that his father might of had blood clots in the past. In the ED, temperature was 98.2, pulse 91, respiratory 20, blood pressure 146/85, saturating at 100% on room air. WBC 9.7, hemoglobin 12.7, platelet 456, D-dimer 1.5, creatinine 0.79, total bilirubin 1.5, urinalysis negative for nitrites and leukocyte esterase, respiratory viral panel negative. Chest x-ray independently interpreted, shows no significant opacities. EKG independently interpreted, shows sinus rhythm. Chest CTA shows left upper lobe pulmonary emboli, no evidence of right heart strain. Lower extremity Dopplers negative for DVT. Patient started on heparin drip, admitted for pulmonary embolism. Pulmonology consulted. Cardiology consulted for chest pain, recommends cardiac cath likely tomorrow. 12/30 Patient was seen and examined. He reports no complaints. No SOB or chest pain. Maintained on heparin drip. Plans for cardiac cath likely tomorrow. CBC Hg 10.8, Hct 32.9, Plt 508. APTT 62.2. CMP AG 13.5, BUN/Cr 10.67, AST 42, total protein 6.1, alb 3.7. 12/31 Patient was seen and examined. No chest pain or SOB. Maintained on heparin drip. Echocardiogram shows EF 60-65% with no shunt. Plans for cardiac cath today. General: non toxic, no distress, appears at stated age Derm: warm, dry Head: atraumatic, normocephalic, symmetric Eyes: EOMI, no lid lag, anicteric sclera Mouth: no lip lesion, mucus membranes moist Cardiovascular: S1S2 reg, no murmur Lungs: CTA bilateral, no rhonchi, no rales , no accessory muscle use Ext: no gross muscle atrophy, no edema, no contractures Neuro: no focal neuro deficits Psych: Alert, oriented, appropriate affect Acute nonmassive provoked pulmonary embolism: Continue heparin drip. Daily coag panel while on heparin. Echo as above. Telemetry monitoring. Pulmonary on board. Recent PFO closure Thrombocytosis: Likely due to anemia. Monitor. Mild normocytic anemia: No signs of active bleeding. Monitor. History of gout: Allopurinol 200 mg PO QD. History of CAD with prior stent: ASA 81 mg PO QD. Lipitor 40 mg PO QHS. Plavix 75 mg PO QD. Plans for cardiac cath. History of TIA: ASA, Lipitor as above. Dyslipidemia: Lipitor as above. CODE STATUS: FULL CODE DVT Prophylaxis: Heparin drip GI Prophylaxis: Designated medical POA if patient is not able to make medical decisions for themselves: I have reviewed the following relationship consultant notes: Pulmonary, Cardiology. I have reviewed the results of the following tests: Echo. I have ordered the following tests: I have discussed the care of this patient with the following independent historian: I have independently interpreted the following test below: I have discussed the management of this patient with the following physician: Objective - Vital Signs Vital signs: Vital Signs Temp 98.9 F 01/01/24 01:52 Pulse 84 01/01/24 01:52 Resp 18 01/01/24 01:52 BP 121/77 01/01/24 01:52 Pulse Ox 97 01/01/24 01:52 FiO2 Intake & Output 12/31/23 12/31/23 01/01/24 06:59 18:59 06:59 Intake Total 250 250 Balance 250 250 Weight 86.183 kg Intake: Intake, IV Titration 250 250 Amount Heparin Sod,Pork in 0.45% 250 250 NaCl 25,000 unit In 0.45 % NaCl 1 250ml.bag @ 18 UNITS/KG/HR 15.513 mls/hr IV .Q16H7M [facility] Rx#: [id number] Other: # Voids 2 - Labs CBC & Chem 7: 12/31/23 06:14 12/31/23 06:14 Labs: Abnormal Lab Results - Last 24 Hours (Table) 12/31/23 12/31/23 12/31/23 Range/Units 06:14 06:14 08:50 RBC 3.63 L (4.40-5.60) X 10*6/uL Hgb 10.8 L (13.0-17.0) g/dL Hct 32.9 L (39.6-50.0) % Plt Count 508 H (140-440) X 10*3/uL Eosinophils # 0.60 H (0.04-0.35) X 10*3/uL APTT 62.2 H (22.0-30.0) sec Anion Gap 13.50 H (4.00-12.00) mmol/L BUN/Creatinine Ratio 10.67 L (12.00-20.00) Ratio AST 42 H (14-35) U/L Total Protein 6.1 L (6.2-8.2) g/dL Albumin 3.7 L (3.8-4.9) g/dL Albumin/Globulin Ratio 1.54 L (1.60-3.17) Ratio
[2024-01-01] MEDS: LIDOCAINE 1% INJ 10MG/ML (20 ML MDV) SQ ONE (10:23)
[2024-01-01] MEDS: VERAPAMIL SYRINGE (5 MG/10 ML) INTRAARTER ONE (10:23)
[2024-01-01] MEDS: MIDAZOLAM 2 MG/2 ML VIAL IVP ONE (10:23)
[2024-01-01] MEDS: HEPARIN SODIUM 1,000 UN/ML (10ML VL) IVP ONE (10:45)
[2024-01-01] MEDS: IOPAMIDOL-370 100ML BTL INJ ONE (10:50)
--- NOTE | 2024-01-01 10:52 | P.PN ---
Subjective Progress Note Date: 01/01/24 Principal diagnosis: Acute pulmonary embolism This is a 53-year-old male patient with a known history of coronary artery disease and previous stent placement, gout, hyperlipidemia. He had recently undergone successful percutaneous closure of a PFO on December 11, 2023. He had al so been noted to have a positive stress test and was planning on having a heart catheterization with Dr. Alvarado on 01/07/2024. The last several days however the patient had been having increasing fatigue and some shortness of breath. He denied any chest pain. No cough or congestion. No hemoptysis. He presented here today for the same. White count 9.7. Hemoglobin 12.7. Platelets 456. D-dimer 1.50. Sodium 139. Potassium 3.9. Bicarb 28. BUN 11. Creatinine 0.79. Troponin negative x 1. Viral screen negative. Chest x-ray revealed no acute pulmonary process. CT angiogram revealed evidence of a left upper lobe pulmonary embolus. No evidence of heart strain. Doppler of the lower ext remities revealed no DVT. He has been initiated on a heparin drip. He is seen today in consultation in the emergency department. Currently sitting up on a stretcher. Awake and alert in no acute distress. Maintaining good O2 saturations in the 90s on room air. Patient was reevaluated today on 12/31/2023, patient is doing well, remains on heparin, he was seen earlier by cardiology, and he was advised to have cardiac catheterization for his abnormal EKG and apparently he had abnormal stress test previously. Patient will likely have his cardiac catheterization possibly today or tomorrow. In the meantime he is on heparin, no cough no wheezing no shortness of breath and no complications related to heparin treatment PTT is therapeutic at 62.2 CBC is normal platelets are 508 basic metabolic profile is normal and renal profile is normal. Patient was reevaluated today on 01/01/2024, patient is doing well, asymptomatic, no shortness of breath no cough no wheezing, remains on heparin drip, patient may undergo cardiac catheterization today. His PTT today is therapeutic at 62.5, platelets yesterday where 508. Hemoglobin is 10.8. Objective - Vital Signs Vital signs: Vital Signs Temp 98.2 F 01/01/24 07:14 Pulse 90 01/01/24 07:14 Resp 18 01/01/24 07:14 BP 125/75 05/08/24 07:14 Pulse Ox 97 01/01/24 07:14 FiO2 Intake & Output 12/31/23 01/01/24 01/01/24 18:59 06:59 18:59 Intake Total 250 Balance 250 Weight 86.183 kg Intake: Intake, IV Titration 250 Amount Heparin Sod,Pork in 0.45% 250 NaCl 25,000 unit In 0.45 % NaCl 1 250ml.bag @ 18 UNITS/KG/HR 15.513 mls/hr IV .Q16H7M [facility] Rx#: [id number] Other: # Voids 2 - Exam GENERAL EXAM: Reveals a 53-year-old white male in no distress, on room air. HEAD: Normocephalic. EYES: Normal reaction of pupils, equal size. NOSE: Clear with pink turbinates. THROAT: Normal mucous membranes. NECK: No masses, no JVD. CHEST: No chest wall deformity. LUNGS: Clear bilaterally no rhonchi no wheezes CVS: S1 and S2 normal with no audible murmur, regular rhythm. ABDOMEN: Soft nontender no megaly no rebound no guarding SKIN: Noted psoriasis CENTRAL NERVOUS SYSTEM: Alert oriented x 3 no gross focal deficit EXTREMITIES: No clubbing, no edema, no cyanosis - Labs CBC & Chem 7: 12/31/23 06:14 12/31/23 06:14 Assessment and Plan Assessment: Impression: Acute pulmonary embolism Recent closure of PFO on 12/11/2023 History of coronary arteriosclerosis and previous stent placement Recently abnormal cardiac stress test./Positive stress test. History of psoriasis Dyslipidemia Ex-smoker Recommendation: Awaiting input from cardiology, patient may undergo cardiac catheterization today. Continue heparin Will eventually transition to Eliquis in the next 24 hours. Will continue to follow. Time with Patient: Less than 30
[2024-01-01] MEDS ORDERED: RX INFO: IV CONTRAST WAS GIVEN 1 EACH MISC MISCELLANE PRN (11:07)
--- NOTE | 2024-01-01 11:11 | P.PCN ---
Date of Procedure: 01/01/24 Operative Findings: CARDIAC CATHETERIZATION PERFORMING PHYSICIAN: Chuy Sanchez MD, RPVI PROCEDURE PERFORMED: 1. Selective right and left coronary angiogram 2. Left heart catheterization 3. IFR of the LAD 4. Ultrasound-guided access of the right radial artery INDICATION: The patient is a pleasant 53-year-old gentleman with known coronary artery disease and prior stenting of the RCA and LAD who was seen in the office recently with a chest discomfort and underwent myocardial perfusion imaging stre ss test came in to be abnormal. 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 Local anesthesia was performed using lidocaine subcutaneously. The right radial artery was cannulated using Seldinger technique, the guidewire passed easily, following that we advanced a 5-Wallisian sheath dilator assembly, the wire and dilator were removed and sheath was flushed. Following that, 2 mg of verapamil along with 5000 unit heparin were given. Selective right and left coronary angiogram using a 6-Wallisian JR4 and JL 3.5 catheters. Following that we did left heart catheterization using 6-Wallisian pigtail catheter. After that I decided to do an IFR of the LAD. After zeroing the Doppler wire and equalizing between the Doppler wire and guiding catheter which was JL 3.5 guiding catheter the left main was engaged and subsequently the LAD was wired. I did an IFR and that came in to be ischemic at 0.88 and 0.87 and 0.88. The procedure was completed there was no complication. SELECTIVE CORONARY ANGIOGRAM: The right coronary artery: Large-caliber vessel and a dominant vessel with patent stent in the midportion Left main: Is angiographically normal The left circumflex: Large-caliber vessel nondominant vessel and gives rise into the first and second obtuse marginal branches both appear to have mild disease only. The left anterior descending artery: Large-caliber vessel. The proximal LAD is stented and the stent is patent. The mid LAD by the bifurcation of a large diagonal branch has intermediate to severe lesion documented to be flow-limiting by Doppler wire. The IFR was as described above HEMODYNAMICS: The LVEDP was 7 mmHg with no significant gradient across aortic valve CONCLUSION: 1. Intermediate to severe disease involving the mid LAD and the disease was flow-limiting by Doppler wire. 2. Normal left-sided filling pressure POSTPROCEDURE MANAGEMENT: Consider medical treatment for the LAD disease giving that the lesion is not a critical and the bifurcation of a large diagonal branch Consider PCI of the LAD if the patient remains symptomatic Follow-up with the patient
[2024-01-01] MEDS ORDERED: HEPARIN SODIUM 1,000 UN/ML (10ML VL) IV PRN (11:15)
[2024-01-01] MEDS: SODIUM CHLORIDE 0.9% 1,000 ML IV SCH (12:19)
[2024-01-01] MEDS: predniSONE 50 MG TAB PO SCH (13:00)
[2024-01-01] MEDS: HEPARIN SODIUM 1,000 UN/ML (10ML VL) IV ONE (17:28)
[2024-01-01] MEDS: HEPARIN SOD,PORK IN 0.45% NACL 25,000 UNIT in 0.45% NACL 1 250ML.BAG IV SCH (17:28)
[2024-01-01] MEDS ORDERED: Apixaban Initiation Dose--VTE 5 MG TAB PO SCH (21:00)
[2024-01-02] MEDS: METOPROLOL TARTRATE 25 MG TAB PO SCH (09:13)
--- NOTE | 2024-01-02 09:45 | P.PN ---
Subjective HISTORY OF PRESENT ILLNESS: This is a 53-year-old gentleman who is known to our service from before with a past medical history significant for coronary artery disease with prior revascularization with unknown details at this point as well as hypertension and dyslipidemia and recent diagnosis of stroke and patent foramen ovale status post PFO closure presented to the emergency department complaining of generalized weakness and fatigue and shortness of breath and the chest discomfort. He underwent further investigation including D-dimer came in to be abnormal and subsequently CTA of the chest showed small pulmonary embolism involving the left upper lobe of the lung. Subsequently he was started on oral anticoagulation using heparin. He is feeling somewhat better. But he continues to have some shortness of breath and chest discomfort and currently his chest pain-free. No dizziness or lightheadedness and no feeling of heart racing or fluttering and no presyncope or syncope and no lower extremities edema. The EKG shows sinus mech anism with no ST or T wave abnormalities. Cardiac enzymes came in to be unremarkable. He was seen in the office recently and he was scheduled to undergo a heart catheterization as an outpatient after abnormal myocardial perfusion imaging stress test and that was scheduled for next week. The exami nation is stable for vital signs with regular rate and rhythm and soft systolic murmur and clear breathing sounds bilaterally and no edema was noted in the lower extremities 01/02/2024 Patient is status postcardiac catheterization yesterday revealing intermediate to severe disease involving the mid LAD and the disease was flow-limiting by Doppler wire. Normal left-sided filling pressures. Medical management was recommended for LAD disease given that the lesion is not a critical lesion in the bifurcation of a large diagonal branch. Consider PCI of the LAD if patient remains symptomatic. Patient examined this morning at bedside. Patient states he is feeling well this morning. He denies any episodes of chest pain or pressure. He denies any shortness of breath. He states he has been up ambulating to the bathroom without difficulty. Vital signs are stable. He remains on IV heparin. PHYSICAL EXAM: VITAL SIGNS: Reviewed. GENERAL: Well-developed in no acute distress. NECK: Supple. No JVD or thyromegaly LUNGS: Respirations even and unlabored. Lungs essentially clear to auscultation bilaterally. HEART: Regular rate and rhythm. S1 and S2 heard. EXTREMITIES: Normal range of motion. No clubbing or cyanosis. Peripheral pulses intact. No lower extremity edema ASSESSMENT: Shortness of breath and chest discomfort, status post cardiac catheterization revealing intermediate to severe disease involving the mid LAD Generalized weakness and fatigue Acute pulmonary embolism PFO status post percutaneous closure 12/11/2023 Coronary artery disease status post revascularization Abnormal stress test Multiple comorbid conditions PLAN: Continue current cardiac medications Add metoprolol tartrate 25 mg twice a day Continue IV heparin Patient instructed to ambulate this morning in the hallway. If patient denies any further episodes of chest pain or pressure, he may be discharged home today and will transition patient to [facility] If patient becomes symptomatic, patient will undergo repeat cardiac catheterization with PCI of the LAD today with Dr. Sanchez Nurse practitioner note has been reviewed by physician. Signing provider agrees with the documented findings, assessment, and plan of care documented by COLLECTOR OF PORT as a scribe. Objective - Vital Signs Vital signs: Vital Signs Temp 98.2 F 01/02/24 07:20 Pulse 76 01/02/24 09:08 Resp 16 01/02/24 07:20 BP 108/68 01/02/24 07:20 Pulse Ox 98 01/02/24 07:20 FiO2 Intake & Output 01/01/24 01/02/24 01/02/24 18:59 06:59 18:59 Intake Total 318 1444.605 149.026 Balance 318 1444.605 149.026 Intake: IV 200 Intake, IV Titration 484.605 31.026 Amount Heparin Sod,Pork in 0.45% 184.605 31.026 NaCl 25,000 unit In 0.45 % NaCl 1 250ml.bag @ 18 UNITS/KG/HR 15.513 mls/hr IV .Q16H7M DASHAWN Rx#: [id number] Sodium Chloride 0.9% 1, 300 000 ml @ 75 mls/hr IV . [id number] DASHAWN Rx#:[id number] Oral 118 960 118 Other: Voiding Method Toilet Toilet Urinal Urinal # Voids 2 4 - Labs CBC & Chem 7: 12/31/23 06:14 12/31/23 06:14 Labs: Abnormal Lab Results - Last 24 Hours (Table) 01/02/24 01/02/24 Range/Units 00:59 06:32 APTT 73.5 H 64.2 H (22.0-30.0) sec
[2024-01-02] MEDS: Apixaban Initiation Dose--VTE 5 MG TAB PO SCH (12:28)
--- NOTE | 2024-01-02 12:31 | P.PN ---
Subjective Progress Note Date: 01/02/24 This is a 53-year-old male patient with a known history of coronary artery disease and previous stent placement, gout, hyperlipidemia. He had recently undergone successful percutaneous closure of a PFO on December 11, 2023. He had also been noted to have a positive stress test and was planning on having a heart catheterization with Dr. Alvarado on 01/07/2024. The last several days however the patient had been having increasing fatigue and some shortness of breath. He denied any chest pain. No cough or congestion. No hemoptysis. He presented here today for the same. White count 9.7. Hemoglobin 12.7. Platelets 456. D-dimer 1.50. Sodium 139. Potassium 3.9. Bicarb 28. BUN 11. Creatinine 0.79. Troponin negative x 1. Viral screen negative. Chest x-ray revealed no acute pulmonary process. CT angiogram revealed evidence of a left upper lobe pulmonary embolus. No evidence of heart strain. Doppler of the lower extremities revealed no DVT. He has been initiated on a heparin drip. He is seen today in consultation in the emergency department. Currently sitting up on a stretcher. Awake and alert in no acute distress. Maintaining good O2 saturations in the 90s on room air. Patient was reevaluated today on 12/31/2023, patient is doing well, remains on heparin, he was seen earlier by cardiology, and he was advised to have cardiac catheterization for his abnormal EKG and apparently he had abnormal stress test previously. Patient will likely have his cardiac catheterization possibly today or tomorrow. In the meantime he is on heparin, no cough no wheezing no shortness of breath and no complications related to heparin treatment PTT is therapeutic at 62.2 CBC is normal platelets are 508 basic metabolic profile is normal and renal profile is normal. Patient was reevaluated today on 01/01/2024, patient is doing well, asymptomatic, no shortness of breath no cough no wheezing, remains on heparin drip, patient may undergo cardiac catheterization today. His PTT today is therapeutic at 62.5, platelets yesterday where 508. Hemoglobin is 10.8. The patient is seen today January 02, 2024 in follow-up on the regular medical floor. He is currently sitting up at the bedside. Awake and alert in no acute distress. He is maintaining good O2 saturations in the 90s on room air. No ch est pain at rest. He did undergo cardiac catheterization yesterday that revealed intermediate to severe disease involving the mid LAD and the disease was flow-limiting by Doppler wire. Cardiology considering medical therapy versus PCI of the LAD if the patient is symptomatic. The plan is for him to be up ambulating in the hallway today. He remains on aspirin, Plavix, statins, Colcrys and beta-blockers. Objective - Vital Signs Vital signs: Vital Signs Temp 98.2 F 01/02/24 07:20 Pulse 76 01/02/24 09:08 Resp 16 01/02/24 07:20 BP 108/68 01/02/24 07:20 Pulse Ox 98 01/02/24 07:20 FiO2 Intake & Output 01/01/24 01/02/24 01/02/24 18:59 06:59 18:59 Intake Total 318 1444.605 149.026 Balance 318 1444.605 149.026 Intake: IV 200 Intake, IV Titration 484.605 31.026 Amount Heparin Sod,Pork in 0.45% 184.605 31.026 NaCl 25,000 unit In 0.45 % NaCl 1 250ml.bag @ 18 UNITS/KG/HR 15.513 mls/hr IV .Q16H7M DASHAWN Rx#: [id number] Sodium Chloride 0.9% 1, 300 000 ml @ 75 mls/hr IV . [id number] DASHAWN Rx#:[id number] Oral 118 960 118 Other: Voiding Method Toilet Toilet Toilet Urinal Urinal Urinal # Voids 2 4 - Exam GENERAL EXAM: Alert, pleasant 53-year-old male, on room air, comfortable in no apparent distress. HEAD: Normocephalic. EYES: Normal reaction of pupils, equal size. NOSE: Clear with pink turbinates. THROAT: No erythema or exudates. NECK: No masses, no JVD. CHEST: No chest wall deformity. LUNGS: Equal air entry with no crackles, wheeze, rhonchi or dullness. CVS: S1 and S2 normal with no audible murmur, regular rhythm. ABDOMEN: No hepatosplenomegaly, normal bowel sounds, no guarding or rigidity. SPINE: No scoliosis or deformity SKIN: No rashes CENTRAL NERVOUS SYSTEM: No focal deficits, tone is normal in all 4 extremities. EXTREMITIES: There is no peripheral edema. No clubbing, no cyanosis. Peripheral pulses are intact. - Labs CBC & Chem 7: 12/31/23 06:14 12/31/23 06:14 Labs: Abnormal Lab Results - Last 24 Hours (Table) 01/02/24 01/02/24 Range/Units 00:59 06:32 APTT 73.5 H 64.2 H (22.0-30.0) sec Assessment and Plan Assessment: Generalized fatigue and weakness with intermittent shortness of breath secondary to a left upper lobe pulmonary emboli and coronary artery disease Coronary artery disease status post cardiac catheterization 01/01/2024 and found to have significant blockage of the LAD, pending medical therapy versus intervention Recent PFO closure on 12/11/2023 History of coronary artery disease with previous stent placement Gout Psoriasis Hyperlipidemia Former smoker Plan: The patient was seen and evaluated Cardiac catheterization report and medications reviewed Continued on a heparin drip for now Cardiology plans to transition to [facility] Currently stable and on room air Home once cleared by cardiology I have personally seen and examined the patient, performed the documentation and the assessment and plan as written. Number of minutes spent on the visit: 10.
--- NOTE | 2024-01-02 14:02 | P.DS ---
Providers Date of admission: 01/02/24 09:14 Expected date of discharge: 01/02/24 Attending physician: Yevgeniy Cummins MD Consults: 12/30/23 14:09 Consult Physician Urgent Consulting Provider: Sarina Mcdonald Consult Reason/Comments: Left lobe pulmonary embolus Do you want consulting provider notified?: Yes 12/30/23 16:42 Consult Physician Routine Consulting Provider: Chuy Sanchez Consult Reason/Comments: Recent PFO closure, positive stress test Do you want consulting provider notified?: Yes Primary care physician: [facility] Course: Discharge Diagnosis: Acute nonmassive provoked pulmonary emboli PFO status post recent PFO closure Known coronary artery disease Hypertension Hyperlipidemia History of CVA with left-sided residual deficit Normocytic anemia Thrombocytosis Hospital Course: Patient is a very pleasant 53-year-old male with a past medical history of CAD with stents, hypertension, hyperlipidemia, CVA with left-sided residual deficit, and recent PFO closure. He presented to the emergency department on 12/30/2023 secondary to fatigue and exertional dyspnea. He underwent evaluation in the emergency department. Upon arrival vital signs show blood pressure 146/85, heart rate 91, respiratory rate 20, temp 98.2 F, and SpO2 of 100% on room air. EKG revealing normal sinus rhythm at 83 bpm with no significant T wave or ST abnormalities showing no signs of acute ischemia. Chest x-ray negative for acute cardiopulmonary process. Labs completed and reviewed. CBC showing stable normocytic anemia with hemoglobin of 12.7 and thrombocytosis with platelet count of 456. BMP unremarkable. Liver profile showing elevated total bili of 1.5 otherwise normal findings. Troponin was negative at less than 0.012. Coagulation profile revealed elevated D-dimer of 1.50. Influenza A, influenza B, RSV, and COVID PCR were negative. CTA chest revealing left upper lobe pulmonary emboli with no evidence of right heart strain. Patient was started on anticoagulation with heparin infusion and admitted under our services with consultation to pulmonology and cardiology. Bilateral lower extremity Dopplers were negative for DVT. Echocardiogram was completed showing a preserved EF of 60 to 65% with normal right ventricular dimension and systolic function and stable atrial septal device with no residual shunt and no pericardial effusion. Patient was evaluated by cardiology and taken for cardiac cath. Cardiac catheterization reported intermediate to severe disease involving the mid LAD. Cardiology recommending considering medical management for treatment of LAD disease and will reevaluate and consider PCI of the LAD if patient remains symptomatic. Patient remained on heparin infusion, symptoms of fatigue and exertional dyspnea resolved. Patient ambulating up and down halls without any difficulties. Heparin infusion discontinued and patient placed on oral anticoagulant with Eliquis for treatment of acute PE. Patient cleared from pulmonology perspective and cardiac perspective. He is medically stable at this time, denies having any complaints or needs. Patient stable for discharge at this time and to follow-up outpatient with PCP in 1 to 2 days and with residency coordinator in 1 week. Physical exam: Patient seen and examined at bedside. Vital signs reviewed and stable. General: Nontoxic, no distress and appears stated age. Derm: Skin warm and dry, normal coloration for ethnicity. Head: Atraumatic, normocephalic and symmetric. Eyes: EOMs intact, no lid lag, and anicteric sclera Mouth: no lip lesions, mucus membranes moist Cardiovascular: regular rate and rhythm with normal S1S2, no murmur, positive posterior tibial pulses bilaterally, and cap refill < 2 seconds. Lungs: Respirations even, regular, and unlabored on room air. Lungs CTA bilaterally, no rhonchi, no rales, no wheezing, and no accessory muscle usage. Abdominal: soft, nontender to palpation, no guarding, no appreciable organomegaly Ext:. No gross muscle atrophy, no edema, no contractures. Movement and sensatio n intact. Patient with left lower extremity weakness, chronic and unchanged per patient. Neuro: Speech clear, face symmetrical and CN II-XII grossly intact with no noted focal neuro deficits Psych: Alert and oriented to person, place, time, and situation. Appropriate and pleasant affect. A total of 38 minutes of time were spent preparing this complex discharge summary. Pt was discharged on 01/02/2024 at 2:01 PM. Patient was seen independently by Nurse Practitioner. This document was prepared using [employer] Alert dictation software. Please allow for errors in manager android while rare they do occur. Shahbaz Hoang NP rendered care for this patient independently, reviewed the findings and plan as documented in the note above. I did not physically speak with or examine the patient on this date. Patient Condition at Discharge: Stable Plan - Discharge Summary Discharge Rx Participant: Yes New Discharge Prescriptions: New Apixaban [Eliquis Starter Pack (for VTE)] 5 - 10 mg PO DIRECTED 30 Days #1 each Metoprolol Tartrate [Lopressor] 25 mg PO BID 30 Days #60 tab Nitroglycerin Sl Tabs [Nitrostat] 0.4 mg SUBLINGUAL Q5M PRN #30 tab PRN Reason: Chest Pain Continue Aspirin 81 mg PO DAILY Atorvastatin Calcium [Lipitor] 40 mg PO HS Colchicine 0.6 mg PO BID Ergocalciferol (Vitamin D2) [Drisdol (50,000 Iu)] 1,250 mcg PO FR Acetaminophen Tab [Tylenol] 1,000 mg PO Q6HR PRN PRN Reason: Pain Febuxostat 40 mg PO DAILY Clopidogrel [Plavix] 75 mg PO DAILY #90 tab Discharge Medication List Aspirin 81 mg PO DAILY 09/16/19 [History] Acetaminophen Tab [Tylenol] 1,000 mg PO Q6HR PRN 11/12/23 [History] Atorvastatin Calcium [Lipitor] 40 mg PO HS 11/12/23 [History] Colchicine 0.6 mg PO BID 12/06/23 [History] Febuxostat 40 mg PO DAILY 12/06/23 [History] Clopidogrel [Plavix] 75 mg PO DAILY #90 tab 12/12/23 [Rx] Ergocalciferol (Vitamin D2) [Drisdol (50,000 Iu)] 1,250 mcg PO FR 12/30/23 [History] Apixaban [Eliquis Starter Pack (for VTE)] 5 - 10 mg PO DIRECTED 30 Days #1 each 01/02/24 [Rx] Metoprolol Tartrate [Lopressor] 25 mg PO BID 30 Days #60 tab 01/02/24 [Rx] Nitroglycerin Sl Tabs [Nitrostat] 0.4 mg SUBLINGUAL Q5M PRN #30 tab 01/02/24 [Rx] Follow up Appointment(s)/Referral(s): Chyu Sanchez MD [STAFF PHYSICIAN] - 1 Week Denise Isbell MD [Primary Care Provider] - 1-2 days Patient Instructions/Handouts: Pulmonary Embolism (DC) Activity/Diet/Wound Care/Special Instructions: Activity: As tolerated. Take breaks as needed. Diet: Heart healthy and carb consistent diet. Avoid salts, or foods with hidden salts such as canned or boxed foods and frozen dinners. Extra salt makes your heart work harder and traps the fluid in your body for longer. Special Instructions: Take all of your medications as directed and remember to keep all of your doctor's appointments and follow-up as needed. You are being discharged home on Eliquis, aspirin, and Plavix. Eliquis is a blood thinner, This is very important to take daily as directed until otherwise advised by your residency coordinator-Dr. Sanchez. Being that you are being placed on a blood thinner it is very important to watch for any signs of bleeding and notify your doctor immediately if you notice any bleeding. It is also important to remove any trip hazards such as rugs or loose extension cords from your home to prevent unnecessary falls and if you do experience a fall or head injury, it is extremely important to be evaluated by a medical provider immediately to ensure no internal bleeding. Thank you for allowing us to participate in your care, it was truly a pleasure having you for our patient!!! . Discharge Disposition: HOME SELF-CARE
[2024-01-02 15:11] VITALS: BP 106/68; PULSE 60; RESP 17; TEMP 98.9
[2024-01-03] MEDS ORDERED: ERGOCALCIFEROL 1,250 MCG (50,000 IU) CAPSULE PO SCH (09:00)
== END 2024-01-02 14:52 | disposition home or self-care (01) | DRG 176 ==
LOC: EC 09:25 → OBSVTOIN 14:23 → 6NMEDSUR 14:23 → 1SOBS 12-31 10:08 → 6NMEDSUR 01-01 11:15 → OBSVTOIN 01-02 09:14 → INTOOBSV 01-02 09:14 → UNDODISIN 01-02 14:52
PROVIDERS: ADMIT Student in an Organized Health Care Education/Training Program; ATTEND Student in an Organized Health Care Education/Training Program
PROC: 4A023N7 Measurement of Cardiac Sampling and Pressure, Left Heart, Percutaneous Approach (ICD-10-PCS; principal; 2024-01-01 08:25)
PROC: B2111ZZ Fluoroscopy of Multiple Coronary Arteries using Low Osmolar Contrast (ICD-10-PCS; 2024-01-01 08:25)
PROC: 4A033BC Measurement of Arterial Pressure, Coronary, Percutaneous Approach (ICD-10-PCS; 2024-01-02)
DX: I26.99 Other pulmonary embolism without acute cor pulmonale (principal); I69.354 Hemiplegia and hemiparesis following cerebral infarction affecting left non-dominant side; D64.9 Anemia, unspecified; D75.839 Thrombocytosis, unspecified; E78.5 Hyperlipidemia, unspecified; I07.1 Rheumatic tricuspid insufficiency; F17.210 Nicotine dependence, cigarettes, uncomplicated; I25.10 Atherosclerotic heart disease of native coronary artery without angina pectoris; I10 Essential (primary) hypertension; I25.2 Old myocardial infarction; M10.9 Gout, unspecified; L40.9 Psoriasis, unspecified; R53.1 Weakness; R53.83 Other fatigue; M17.0 Bilateral primary osteoarthritis of knee; Z79.02 Long term (current) use of antithrombotics/antiplatelets; Z79.82 Long term (current) use of aspirin; Z79.899 Other long term (current) drug therapy; Z87.74 Personal history of (corrected) congenital malformations of heart and circulatory system; Z95.5 Presence of coronary angioplasty implant and graft; I69.30 Unspecified sequelae of cerebral infarction
CPT/HCPCS: 36415; 71046; 71275; 76937; 80053; 81003; 83605; 83735; 84484; 85025; 85379; 85610; 85730; 87636; 93005; 93308; 93458; 93799; 93970; 96361; 96365; 96366; 99285; 99406

== ENCOUNTER → 2024-03-05 | Outpatient (CLI) | payer BC ==
[2024-03-05 15:05] LABS: HCT 43.2 % (39.6-50.0); HGB 13.3 g/dL (13.0-17.0); MCHC 30.8 g/dL (32.0-37.0); MCV 94.1 FL (80.0-97.0); Mean Platelet Volume 9.3 FL (9.5-12.2); NRBC Per 100 WBC 0 X 10*3/uL (0.00-0.01); Platelet Count 594 X 10*3/uL (140-440); RBC 4.59 X 10*6/uL (4.40-5.60); RDW 15.9 % (11.5-14.5); WBC 12.58 X 10*3/uL (4.50-10.00)
[2024-03-05 15:19] LABS: Blood Urea Nitrogen 18.5 mg/dL (9.0-27.0); Carbon Dioxide 26.2 mmol/L (21.6-31.8); Chloride 103 mmol/L (96-109); Sodium 141 mmol/L (135-145)
== END | disposition home or self-care (01) ==
LOC: LABPAT 08:06
PROVIDERS: ATTEND Internal Medicine Interventional Cardiology
DX: Z01.812 Encounter for preprocedural laboratory examination (principal); I25.10 Atherosclerotic heart disease of native coronary artery without angina pectoris
CPT/HCPCS: 80051; 82565; 84520; 85027

== ENCOUNTER 2024-03-18 08:50 | Day surgery (SDC) | payer BC ==
[2024-03-17 09:27] VITALS: BMI 28.5
[~2024-03-18 08:50] MED LIST changes: +ALPRAZolam 0.25 MG TAB PO PRN; +ALPRAZolam 0.5 MG TAB PO PRN; -CLINDAMYCIN 900 MG in DEXTROSE 5% IN WATER 50 ML IVPB ONE; -DEXAMETHASONE SOD PHOSPHATE 10 MG/ML 1 ML VIAL IV ONE; +HEPARIN SODIUM,PORCINE (1 ML) 2,500 UNIT in SODIUM CHLORIDE 0.9% 250 ML IRRIGATION PRN; +HEPARIN SODIUM,PORCINE 10,000 UNIT in SODIUM CHLORIDE 0.9% 1,000 ML IRRIGATION PRN; -HEPARIN SODIUM,PORCINE 5,000 UNIT/ML 1 ML VIAL SQ ONE; -HYDROmorphone 0.5 MG/0.5 ML SYRINGE IVP PRN; -LEVOFLOXACIN 500MG-D5W PMX 500 MG in DEXTROSE/WATER 1 100ML.BAG IVPB ONE; -MIDAZOLAM 2 MG/2 ML VIAL IV PRN; +NITROGLYCERIN SL TABS 0.4 MG TAB SUBLINGUAL PRN; -ONDANSETRON 4 MG/2 ML VIAL IVP ONE; -SCOPOLAMINE 1.5MG/72HR PATCH TRANSDERM ONE
[2024-03-18] MEDS: IV FLUID CONTINUATION 1,000 ML IV ONE (09:25)
[2024-03-18] MEDS: SODIUM CHLORIDE 0.9% 1,000 ML in EMPTY BAG 1 BAG IV SCH ×2 (09:25→14:10)
[2024-03-18 09:34] LABS: Basophils % (A) 0 %; Eosinophils # (A) 0.4 k/uL (0-0.7); Eosinophils % (A) 4 %; HCT 40.5 % (39.0-53.0); Hypochromasia Moderate; Lymphocytes # (A) 2.5 k/uL (1.0-4.8); Lymphocytes % (A) 27 %; MCH 29.5 pg (25.0-35.0); MCHC 32.1 g/dL (31.0-37.0); Mean Platelet Volume 6.9; Monocytes # (A) 0.5 k/uL (0-1.0); Monocytes % (A) 5 %; Neutrophils # (A) 5.8 k/uL (1.3-7.7); Neutrophils % (A) 62 %; Platelet Count 406 k/uL (150-450); RBC 4.41 m/uL (4.30-5.90); RDW 15.8 % (11.5-15.5); WBC 9.3 k/uL (3.8-10.6)
[2024-03-18] MEDS: METOPROLOL TARTRATE 50 MG TAB PO STA (09:40)
[2024-03-18 10:26] LABS: African American GFR (CKD) >90 (>60 ml/min/1.73 sqM); Anion Gap 2 mmol/L; Blood Urea Nitrogen 10 mg/dL (9-20); Calcium 9.5 mg/dL (8.4-10.2); Carbon Dioxide 30 mmol/L (22-30); Chloride 107 mmol/L (98-107); Glucose 94 mg/dL (74-99); Non-African American GFR(CKD) 83 (>60 ml/min/1.73 sqM); Potassium 4.2 mmol/L (3.5-5.1); Sodium 139 mmol/L (137-145)
[2024-03-18] MEDS ORDERED: VERAPAMIL 2.5 MG/ML 2 ML AMP ONE (11:08)
[2024-03-18] MEDS ORDERED: HEPARIN SODIUM 1,000 UN/ML (10ML VL) ONE (11:08)
[2024-03-18] MEDS ORDERED: fentaNYL (PF) 50 MCG/ML 2 ML AMP ONE (11:09)
[2024-03-18] MEDS ORDERED: LIDOCAINE 1% INJ 10MG/ML (20 ML MDV) ONE (11:09)
[2024-03-18] MEDS: LIDOCAINE 1% INJ 10MG/ML (20 ML MDV) SQ ONE (11:45)
[2024-03-18] MEDS: fentaNYL (PF) 50 MCG/1 ML VIAL IVP ONE (11:45)
[2024-03-18] MEDS: MIDAZOLAM 2 MG/2 ML VIAL IVP ONE ×2 (11:45→11:54)
[2024-03-18] MEDS: VERAPAMIL 2.5 MG/ML 4 ML VIAL INTRAARTER ONE (11:46)
[2024-03-18] MEDS: HEPARIN SODIUM 1,000 UN/ML (10ML VL) IVP ONE (11:51)
[2024-03-18] MEDS ORDERED: NITROGLYCERIN SL TABS 0.4 MG TAB SUBLINGUAL PRN ×2 (12:24→12:26)
[2024-03-18] MEDS ORDERED: ACETAMINOPHEN TAB 500 MG TAB PO PRN (12:24)
[2024-03-18] MEDS ORDERED: RX INFO: IV CONTRAST WAS GIVEN 1 EACH MISC MISCELLANE PRN (12:26)
[2024-03-18] MEDS ORDERED: ATROPINE SULFATE 0.1 MG/ML 10ML SYRINGE IV PRN (12:26)
[2024-03-18] MEDS ORDERED: MAG HYDROX/AL HYDROX/SIMETH 30 ML CUP PO PRN (12:26)
[2024-03-18] MEDS ORDERED: ZOLPIDEM 5 MG TAB PO PRN (12:26)
[2024-03-18] MEDS: IOPAMIDOL-370 100ML BTL INTRATHECA ONE (12:29)
[2024-03-18] MEDS: HEPARIN SODIUM,PORCINE (1 ML) 2,500 UNIT in SODIUM CHLORIDE 0.9% 250 ML IRRIGATION ONE (12:30)
[2024-03-18] MEDS: HEPARIN SODIUM,PORCINE 10,000 UNIT in SODIUM CHLORIDE 0.9% 1,000 ML IRRIGATION ONE (12:30)
--- NOTE | 2024-03-18 12:32 | P.PCN ---
Date of Procedure: 03/18/24 Operative Findings: PERCUTANEOUS CORONARY INTERVENTION Performing physician Chuy Sanchez M.D. Procedure Performed: 1. Successful stenting of the mid LAD using 4.0 x 18 mm Xience drug-eluting stent with an excellent angiographic results. 2. Balloon angioplasty of the second diagonal branch of the left anterior descending artery 3. Adjunctive use of IVUS 4. Ultrasound-guided access of the right radial artery Indication: Intermediate to severe lesion involving the mid LAD documented to be flow-l imiting by Doppler wire in this 54-year-old gentleman who continues to be symptomatic Approach: Right radial artery Complications: None Level of Sedation: Moderate with a sedation length of 37 minutes Procedure Discussion: After obtaining informed consent the patient was brought to the cardiac Filler Spreader. The right radial artery was cannulated using micropuncture technique under ultrasound guidance the micropuncture wire passed easily then I placed a 6 Maltese 11 cm sheath. After that anticoagulation was initiated using heparin with continuous ACT monitoring. Subsequently I engaged the left main using JL 3.5 guiding catheter after attempting engaging the left main using an EBU 3.75 guiding catheter. Subsequently I did wired the LAD using a run-through wire and the second diagonal branch using a run-through wire as well. Intravascular ultrasound was performed for both and showed a diameter of the LAD around 4 mm and diagonal on 2.5 mm. Balloon angioplasty of the LAD was performed using 3.0 mm balloon and further using 2.5 mm balloon. Both balloons were score flex balloon. After that I did stent in the mid LAD using 4.0 x 18 mm stent where the stent was positioned under fluoroscopy guidance and deployed under 12 xochilt for 20 seconds. An angiogram was performed after that showed excellent angiographic results and the procedure was completed with no complication also intravascular ultrasound was performed and showed good apposition and expansion of the stent. Postprocedure Management: 1. Dual antiplatelet therapy for at least 6-month 2. Aggressive cholesterol control 3. Risk factors modification
[2024-03-18] MEDS: ASPIRIN 325 MG TAB PO STA (17:12)
[2024-03-18] MEDS: APIXABAN 5 MG TAB PO SCH (21:25)
[2024-03-18] MEDS: METOPROLOL TARTRATE 50 MG TAB PO SCH (21:25)
[2024-03-18] MEDS: ATORVASTATIN 40 MG TAB PO SCH (21:25)
[2024-03-19 07:54] LABS: African American GFR (CKD) >90 (>60 ml/min/1.73 sqM); Non-African American GFR(CKD) >90 (>60 ml/min/1.73 sqM)
[2024-03-19] MEDS: allopurinoL 300 MG TAB PO SCH (09:57)
[2024-03-19] MEDS: CLOPIDOGREL 75 MG TAB PO SCH (09:59)
[2024-03-19] MEDS: ASPIRIN 81 MG PO SCH (09:59)
[2024-03-19 10:29] VITALS: BP 127/83; PULSE 65; RESP 16; TEMP 98.1
--- NOTE | 2024-03-19 12:11 | P.DS ---
Providers Attending physician: Chuy Sanchez Consults: 03/18/24 12:26 Consult Physician Routine Consulting Provider: [facility] Consult Reason/Comments: Post Interventional patient Do you want consulting provider notified?: Already Contacted Primary care physician: Denise [facility] Course: This is a 54-year-old male who underwent cardiac catheterization yesterday with Dr. Sanchez with stenting of the mid LAD. Patient examined this morning the bedside. Patient currently denies chest pain or pressure. He denies shortness of breath. He has been up ambulating in the kemp without difficulty. Right radial site with pulse present. No hematoma noted. The patient was deemed stable for discharge home today from a cardiac standpoint. Patient is to remain on dual antiplatelet therapy with aspirin and Plavix for at least 6 months. Continue high intensity statin with LDL goal less than 70. Please see EMR for further hospital course details. Discharge Diagnosis Coronary artery disease, status post stenting of the mid LAD Nurse practitioner note has been reviewed by physician. Signing provider agrees with the documented findings, assessment, and plan of care documented by HOME SCHOOL TEACHER as a scribe. Plan - Discharge Summary Discharge Rx Participant: No New Discharge Prescriptions: No Action Atorvastatin Calcium [Lipitor] 40 mg PO HS allopurinoL [Zyloprim] 300 mg PO DAILY Metoprolol Tartrate [Lopressor] 50 mg PO BID Apixaban [Eliquis Starter Pack (for VTE)] 5 mg PO BID Acetaminophen Tab [Tylenol] 1,000 mg PO Q6HR PRN PRN Reason: Pain Clopidogrel [Plavix] 75 mg PO DAILY #90 tab Nitroglycerin Sl Tabs [Nitrostat] 0.4 mg SUBLINGUAL Q5M PRN #30 tab PRN Reason: Chest Pain Aspirin 81 mg PO DAILY Discharge Medication List Acetaminophen Tab [Tylenol] 1,000 mg PO Q6HR PRN 11/12/23 [History] Atorvastatin Calcium [Lipitor] 40 mg PO HS 11/12/23 [History] Clopidogrel [Plavix] 75 mg PO DAILY #90 tab 12/12/23 [Rx] Nitroglycerin Sl Tabs [Nitrostat] 0.4 mg SUBLINGUAL Q5M PRN #30 tab 01/02/24 [Rx] Apixaban [Eliquis Starter Pack (for VTE)] 5 mg PO BID 03/17/24 [History] Metoprolol Tartrate [Lopressor] 50 mg PO BID 03/17/24 [History] allopurinoL [Zyloprim] 300 mg PO DAILY 03/17/24 [History] Aspirin 81 mg PO DAILY 03/18/24 [History] Follow up Appointment(s)/Referral(s): Chuy Sanchez MD [STAFF PHYSICIAN] - 03/26/24 4:00 pm (At the [address] office) Patient Instructions/Handouts: *Surgery [facility] - After Heart Catheterization - Am bulatory Care Instructions Discharge Disposition: HOME SELF-CARE
== END 2024-03-19 11:28 | disposition home or self-care (01) ==
LOC: CATHCVL 08:50 → 3SCARD 12:22 → CATHCVL 03-19 11:28
PROVIDERS: ATTEND Internal Medicine Interventional Cardiology
DX: I25.10 Atherosclerotic heart disease of native coronary artery without angina pectoris (principal)
CPT/HCPCS: 94760; 92978; 92979; 92921; 80048; 82565; 85025; C9600; C1887 ×2; C1769 ×3; C1894; C1753; C1874; C1725 ×2; J2250; J1644 ×3; J2001; Q9967; J3010

== ENCOUNTER → 2024-07-17 | Outpatient (CLI) | payer BC ==
--- NOTE | 2024-07-17 20:52 | MR ---
EXAMINATION TYPE: MR knee LT wo con DATE OF EXAM: 07/17/2024 COMPARISON: Outside left knee x-ray June 26, 2024 HISTORY: Left knee pain and locking. History of prior surgery. TECHNIQUE: Multiplanar, multisequence images of the knee is performed without IV contrast. FINDINGS: Slightly suboptimal as motion artifact is present MEDIAL MENISCUS: Oblique and triangular shaped increased signal posterior horn appears to extend to i nferior articular surface sagittal image 24. LATERAL MENISCUS: Anterior and posterior horns are intact without tear. CRUCIATE LIGAMENTS: The anterior and posterior cruciate ligaments are intact and unremarkable. COLLATERAL LIGAMENTS: The medial collateral ligament and lateral collateral ligament complex are inta ct and unremarkable. EXTENSOR MECHANISM: Visualized quadriceps and patellar tendons are intact. EFFUSION: Small to moderate size suprapatellar joint effusion. POPLITEAL CYST: No popliteal/martines cyst. TRICOMPARTMENT SPACES: Mild to moderate tricompartment joint space loss is seen. There is mild tibial condylar spurring. CARTILAGE: Tricompartmental articular cartilage fairly well preserved. There is some early fissuring medial tibiofemoral compartment. BONE MARROW SIGNAL: No focal abnormal marrow signal is appreciated. OTHER: No additional significant abnormality is appreciated. IMPRESSION: 1. At least intrasubstance but suspected full thickness tear posterior horn of medial meniscus. 2. Mild to moderate thigh compartment degenerative changes are present as detailed above. 3. Small to moderate sized suprapatellar joint effusion. [facility], , 07/17/2024 8:50 PM
== END | disposition home or self-care (01) ==
LOC: RADMRIMAIN 09:55
PROVIDERS: ATTEND Orthopaedic Surgery
DX: M17.12 Unilateral primary osteoarthritis, left knee (principal); M25.462 Effusion, left knee

== ENCOUNTER → 2024-09-08 | Outpatient (CLI) | payer BC ==
[2024-09-08 15:28] LABS: Basophils # (A) 0.07 X 10*3/uL (0.00-0.10); Basophils % (A) 0.8 %; Eosinophils # (A) 0.75 X 10*3/uL (0.04-0.35); Eosinophils % (A) 8.8 %; HCT 44.7 % (39.6-50.0); HGB 14.1 g/dL (13.0-17.0); Lymphocytes # (A) 1.78 X 10*3/uL (0.90-5.00); Lymphocytes % (A) 20.9 %; MCH 29.7 pg (27.0-32.0); MCHC 31.5 g/dL (32.0-37.0); MCV 94.3 FL (80.0-97.0); Mean Platelet Volume 9.6 FL (9.5-12.2); Monocytes # (A) 0.62 X 10*3/uL (0.20-1.00); Monocytes % (A) 7.3 %; NRBC Per 100 WBC 0 X 10*3/uL (0.00-0.01); Neutrophils # (A) 5.27 X 10*3/uL (1.80-7.70); Neutrophils % (A) 61.8 %; Platelet Count 347 X 10*3/uL (140-440); RBC 4.74 X 10*6/uL (4.40-5.60); WBC 8.52 X 10*3/uL (4.50-10.00)
[2024-09-08 16:34] LABS: Potassium 4.5 mmol/L (3.5-5.5)
[2024-09-08 16:35] LABS: Anion Gap 10.7 mmol/L (4.00-12.00); Carbon Dioxide 24.3 mmol/L (21.6-31.8)
== END | disposition home or self-care (01) ==
LOC: LABWHC1 09:06
PROVIDERS: ATTEND Orthopaedic Surgery
DX: Z01.812 Encounter for preprocedural laboratory examination (principal); M23.92 Unspecified internal derangement of left knee
CPT/HCPCS: 36415; 80051; 85025

== ENCOUNTER 2024-09-23 10:27 | Day surgery (SDC) | payer BC ==
--- NOTE | 2024-09-23 00:19 | HP ---
HISTORY AND PHYSICAL Surgery is scheduled for 09/23/2024. HISTORY OF PRESENT ILLNESS: Will Stewart is a 54-year-old gentleman, seen with progressive left knee pain. We discussed options regarding treatment. He elected to proceed with left knee arthroscopy. Consent was obtained. PAST MEDICAL HISTORY: Hypertension, hyperlipidemia, cardiovascular disease. PAST SURGICAL HISTORY: Left knee arthroscopy, wrist surgery, catheterization with stents. DAILY MEDICATIONS: 1. Atorvastatin. 2. Eliquis. 3. Metoprolol. 4. Tylenol. ALLERGIES: None. SOCIAL HISTORY: Denies tobacco use. PHYSICAL EVALUATION OF THE LEFT KNEE: Range of motion is -3/4 to 110 degrees. Mild to moderate effusion. Tenderness, medial joint line. Positive medial Christophe's. Ligaments stable. Hip rotation is without pain. Distal neurovascular exam is intact. IMAGING STUDIES: Left knee radiographs revealed a medial meniscal tear. IMPRESSION: 1. Internal derangement of left knee with medial meniscal tear. 2. Cardiovascular disease. 3. Hypertension. 4. Hyperlipidemia. PLAN: Left knee arthroscopy with partial medial meniscectomy and debridement. MMODL / IJN: [id number] /
[~2024-09-23 10:27] MED LIST changes: -ALPRAZolam 0.25 MG TAB PO PRN; -ALPRAZolam 0.5 MG TAB PO PRN; -HEPARIN SODIUM,PORCINE (1 ML) 2,500 UNIT in SODIUM CHLORIDE 0.9% 250 ML IRRIGATION PRN; -HEPARIN SODIUM,PORCINE 10,000 UNIT in SODIUM CHLORIDE 0.9% 1,000 ML IRRIGATION PRN; +HYDROmorphone 0.5 MG/0.5 ML SYRINGE IVP PRN; +LIDOCAINE 1% (10MG/ML) FOR IV START INTRADERMA PRN; +MIDAZOLAM 2 MG/2 ML VIAL IV PRN; -NITROGLYCERIN SL TABS 0.4 MG TAB SUBLINGUAL PRN; +fentaNYL (PF) 50 MCG/ML 2 ML AMP IV PRN
[2024-09-23] MEDS: LACTATED RINGERS 1,000 ML IV SCH (11:09)
[2024-09-23] MEDS: IV FLUID CONTINUATION 1,000 ML IV ONE (11:10)
[2024-09-23] MEDS: ONDANSETRON 4 MG/2 ML VIAL IVP ONE (11:12)
[2024-09-23] MEDS: DEXAMETHASONE SOD PHOSPHATE 4 MG/ML 1 ML VIAL IV ONE (11:13)
[2024-09-23] MEDS ORDERED: NEOSTIGMINE 1 MG/ML 10 ML VIAL ONE (11:44)
[2024-09-23] MEDS ORDERED: LIDOCAINE 1% INJ 10MG/ML (20 ML MDV) ONE (11:44)
[2024-09-23] MEDS ORDERED: KETOROLAC 15 MG/ML 1 ML VIAL ONE (11:44)
[2024-09-23] MEDS ORDERED: SUCCINYLCHOLINE CHLORIDE 200 MG/10 ML VIAL IV ONE (11:44)
[2024-09-23] MEDS ORDERED: PROPOFOL 10 MG/ML 20 ML VIAL IV ONE (11:44)
[2024-09-23] MEDS ORDERED: ROCURONIUM 10 MG/ML (5 ML VIAL) IV ONE (11:44)
[2024-09-23] MEDS ORDERED: fentaNYL (PF) 50 MCG/ML 2 ML AMP ONE (11:44)
[2024-09-23] MEDS ORDERED: MIDAZOLAM 2 MG/2 ML VIAL ONE (11:44)
[2024-09-23] MEDS ORDERED: GLYCOPYRROLATE 0.2 MG/ML 2 ML VIAL ONE (11:44)
[2024-09-23] MEDS: BUPIVACAINE (PF) 0.25% 30 ML VIAL SQ ONE (12:11)
--- NOTE | 2024-09-23 12:29 | P.OP ---
Date of Procedure: 09/23/24 Preoperative Diagnosis: Internal derangement left knee Postoperative Diagnosis: 1. Tear medial and lateral meniscus left knee 2. Grade IV chondromalacia medial femoral condyle left knee 3. Reactive synovitis medial, lateral and suprapatellar compartments left knee Procedure(s) Performed: 1. Arthroscopic partial medial and lateral meniscectomy left knee 2. Arthroscopic microfracture medial femoral condyle left knee 3. Arthroscopic partial synovectomy medial, lateral and suprapatellar compartments left knee Anesthesia: SOFIEA, local Surgeon: Martin Baum Estimated Blood Loss (ml): 7 Pathology: none sent Condition: stable Disposition: PACU Indications for Procedure: 54-year-old patient seen with progressive left knee pain. After having treatment options discussed, he elected to proceed with arthroscopy. Operative Findings: See description of procedure Description of Procedure: Patient was taken to the operative suite. Patient underwent a general anesthetic by the department of anesthesia. Patient was given preoperative antibiotics. The left lower extremity was placed in a well-padded arthroscopic leg rowley. The left leg was prepped and draped in the normal sterile orthopedic fashion. A lateral parapatellar and suprapatellar incision was made. Trochars were inserted. Arthroscopy was initiated. Suprapatellar pouch revealed diffuse thick reactive synovitis. The patellofemoral joint appeared to articulate congruently. There was grade I chondromalacia patella without significant tears. The scope was guided into the medial gutter. No loose bodies or plica were identified. The scope was then guided into the medial compartment. A medial parapatellar incision was made. Trocar inserted followed by probe. There was a tear involving the posterior horn medial meniscus. There were grade III and IV chondromalacia changes along the medial femoral condyle with some osteochondral flap tears present. There was thick reactive synovitis anteriorly. I performed a partial medial meniscectomy getting down to stable meniscal tissue. I performed a chondroplasty of the medial femoral condyle getting down to stable osteochondral tissue. I performed a partial synovectomy decompressing the reactive synovitis. I did note an area of grade IV chondromalacia/exposed bone along the medial femoral condyle measuring just about a centimeter. I introduced a microfracture awl and I performed a microfracture to the area of exposed bone penetrating the bone with resultant bleeding at the microfracture site. The residual meniscus was stable. The residual osteochondral surface was probed and was found to be stable. There was good decompression of the synovitis. Scope and probe were then guided into the intercondylar notch. Cruciates were identified, probed and found to be stable. The scope and probe were then guided into lateral compartment. There was a radial tear along the posterior horn lateral meniscus. There were grade I chondromalacia changes lateral compartment without tears. There was some thick reactive synovitis anteriorly. I performed a partial lateral meniscectomy getting down to stable meniscal tissue. I performed a partial synovectomy decompressing the reactive synovitis. The residual meniscus was stable. There was good decompression of the synovitis. The scope was in guided back into the suprapatellar compartment. I introduced a motorized shaver into the suprapatellar compartment. I performed a partial synovectomy. The shaver was removed. There was good decompression of the synovitis. I now took 1 more look around the entire knee, no residual debris. Instruments were now removed from the joint. The joint was infiltrated with .25% Marcaine. Steri-Strips were applied to the portal sites. Sterile dressings were applied. The patient was placed into a MUNA hose. No tourniquet was utilized. The patient was awakened, transferred to a bed and taken to recovery stable satisfactory condition.
[2024-09-23 12:43] VITALS: TEMP 98
[2024-09-23 13:17] LABS: INR 0.9 (<1.2); Prothrombin Time 10.5 sec (10.0-12.5)
[2024-09-23 13:59] VITALS: BP 118/76; PULSE 60; RESP 16
== END 2024-09-23 14:10 | disposition home or self-care (01) ==
LOC: OR 10:27
PROVIDERS: ATTEND Orthopaedic Surgery
DX: S83.242A Other tear of medial meniscus, current injury, left knee, initial encounter (principal); S83.282A Other tear of lateral meniscus, current injury, left knee, initial encounter; M65.962 Unspecified synovitis and tenosynovitis, left lower leg; M19.90 Unspecified osteoarthritis, unspecified site; I25.10 Atherosclerotic heart disease of native coronary artery without angina pectoris; I10 Essential (primary) hypertension; E78.5 Hyperlipidemia, unspecified; I67.9 Cerebrovascular disease, unspecified; I26.99 Other pulmonary embolism without acute cor pulmonale; Z88.0 Allergy status to penicillin; Z98.890 Other specified postprocedural states; Z79.02 Long term (current) use of antithrombotics/antiplatelets; Z79.899 Other long term (current) drug therapy; X58.XXXA Exposure to other specified factors, initial encounter
CPT/HCPCS: 85610; 29880; 29879; J2250; J0330; J1100; J2710; J0690; J2405; J2003; J3010; J1885; J2704; J0665; J1596

== ENCOUNTER 2025-02-01 22:55 | Emergency (ER) | payer OTHER, BC ==
[2025-02-01 23:09] VITALS: BP 140/89; PULSE 91; RESP 18; TEMP 97.7
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
== END 2025-02-01 23:49 | disposition home or self-care (01) ==
LOC: EC 22:55
DX: Z02.83 Encounter for blood-alcohol and blood-drug test (principal); Z88.0 Allergy status to penicillin; Z88.8 Allergy status to other drugs, medicaments and biological substances; Z87.891 Personal history of nicotine dependence; Z86.73 Personal history of transient ischemic attack (TIA), and cerebral infarction without residual deficits
CPT/HCPCS: 99281